=== PATIENT | male | born 1945 | race Caucasian/White ===

== ENCOUNTER → 2017-01-13 | Outpatient (CLI) | payer MEDICARE ==
[2017-01-13 15:14] VITALS: BP 119/87; PULSE 68; TEMP 97.9; BMI 42.2
--- NOTE | 2017-01-13 16:39 | P.HPBAR ---
Bariatric H&P - History & Physicial H&P Date: 01/13/17 History & Physicial: Visit/CC: lap band follow up Patient initial contact: Initial weight: 127.204 kg Initial weight in pounds: 280.44 Height: 5 ft 9 in Initial BMI: 41.4 Last weight: Current weight: 129.773 kg Current weight in pounds: 286.10 Current BMI: 42.2 [place] body weight (based on NIH guidelines): 72.575 kg Excess body weight loss: The patient is a 71 year-old M who presents for Bariatric Assessment. A shunt presents for lap band follow up. He has not been seen over a year. He has had some dysphagia. Past Medical History Past Medical History: Diabetes Mellitus, Hyperlipidemia, Hypertension, Thyroid Disorder History of Any Multi-Drug Resistant Organisms: None Reported, C-DIFF Year Discovered:: 2012 MDRO Source:: SECONDARY TO ABX FROM KNEE SURGERY Past Surgical History: Bariatric Surgery, Orthopedic Surgery Additional Past Surgical History / Comment(s): BILATERAL KNEE REPLACEMENTS, LEFT SHOULDER TIGHTENED LIGAMENTS/ROTATOR CUFF, LAP BAND 2011, FINGER TRAUMA LED TO AMPUTATION Past Anesthesia/Blood Transfusion Reactions: No Reported Reaction Past Psychological History: No Psychological Hx Reported Smoking Status: Former smoker Past Alcohol Use History: Rare Past Drug Use History: None Reported Additional Drug Use History / Comment(s): QUIT SMOKING OVER 50 YEARS AGO - Past Family History Mother Family Medical History: Dementia Additional Family Medical History / Comment(s): ALZHEIMERS, OF NORMAL CAUSES AT AGE 89 Father Family Medical History: Coronary Artery Disease (CAD), Hypertension Additional Family Medical History / Comment(s): AT AGE 87 Surgical - Exam Vital Signs Temp Pulse BP 97.9 F 68 119/87 01/13/17 15:05 01/13/17 15:05 01/13/17 15:05 - General well developed, no distress - Eyes PERRL - ENT normal pinna - Neck no masses - Abdomen Abdomen: soft, non tender Bariatric Assessment & Plan Plan: Dysphagia. The patient's LAP-BAND was adjusted. He had 1 mL removed from her band. He will follow-up in 4 weeks. Bariatric Checklist Checklist: Plan: Checklist: EGD: 1. Hiatal hernia: 2. H. Pylori: HgbA1c: Vitamin D: Smoking: Former smoker Primary care physician referral: Dr. Amy Souza Psychiatry clearance: Cardiology clearance: Sleep study: Diet journal: VTE risk score: VTE risk level: Rehab needs at discharge:
== END ==
LOC: BARWHC3 14:12
PROVIDERS: ATTEND Surgery
DX: Z48.815 Encounter for surgical aftercare following surgery on the digestive system (principal); Z98.84 Bariatric surgery status; R13.10 Dysphagia, unspecified; Z87.891 Personal history of nicotine dependence
CPT/HCPCS: 99212

== ENCOUNTER → 2017-07-07 | Outpatient (CLI) | payer MEDICARE ==
[2017-07-07 14:18] VITALS: BP 176/83; PULSE 66; RESP 16; TEMP 97.6; BMI 44.6
--- NOTE | 2017-07-07 15:44 | P.HPBAR ---
Bariatric H&P - History & Physicial H&P Date: 07/07/17 History & Physicial: Visit/CC: band adj Patient initial contact: Initial weight: 127.204 kg Initial weight in pounds: 280.44 Height: 5 ft 9 in Initial BMI: 41.4 Last weight: 286 Current weight: 137.127 kg Current weight in pounds: 302.31 Current BMI: 44.6 [place] body weight (based on NIH guidelines): 72.575 kg Excess body weight loss: The patient is a 72 year-old M who presents for Bariatric Assessment. Patient presents today for lab band follow. He currently is hungry. Requesting a fill of his band. Past Medical History Past Medical History: Diabetes Mellitus, Hyperlipidemia, Hypertension, Thyroid Disorder History of Any Multi-Drug Resistant Organisms: None Reported, C-DIFF Year Discovered:: 2012 MDRO Source:: SECONDARY TO ABX FROM KNEE SURGERY Past Surgical History: Bariatric Surgery, Orthopedic Surgery Additional Past Surgical History / Comment(s): BILATERAL KNEE REPLACEMENTS, LEFT SHOULDER TIGHTENED LIGAMENTS/ROTATOR CUFF, LAP BAND 2011, FINGER TRAUMA LED TO AMPUTATION Past Anesthesia/Blood Transfusion Reactions: No Reported Reaction Past Psychological History: No Psychological Hx Reported Smoking Status: Former smoker Past Alcohol Use History: Rare Past Drug Use History: None Reported Additional Drug Use History / Comment(s): QUIT SMOKING OVER 50 YEARS AGO - Past Family History Mother Family Medical History: Dementia Additional Family Medical History / Comment(s): ALZHEIMERS, OF NORMAL CAUSES AT AGE 89 Father Family Medical History: Coronary Artery Disease (CAD), Hypertension Additional Family Medical History / Comment(s): AT AGE 87 Surgical - Exam Vital Signs Temp Pulse Resp BP 97.6 F 66 16 176/83 07/07/17 14:16 07/07/17 14:16 07/07/17 14:16 07/07/17 14:16 - General well developed, no distress - Abdomen Abdomen: soft, non tender Bariatric Assessment & Plan Plan: The patient's lap was adjusted. 0.75 mL added to the band. He currently is 3.75 mL in the band. He'll follow-up in in 1 month. Bariatric Checklist Checklist: Plan: Checklist: EGD: 1. Hiatal hernia: 2. H. Pylori: HgbA1c: Vitamin D: Smoking: Former smoker Primary care physician referral: Dr. Amy Souza Psychiatry clearance: Cardiology clearance: Sleep study: Diet journal: VTE risk score: VTE risk level: Rehab needs at discharge:
== END | disposition home or self-care (01) ==
LOC: BARWHC3 13:58
PROVIDERS: ATTEND Surgery
DX: Z46.51 Encounter for fitting and adjustment of gastric lap band (principal); T73.0XXA Starvation, initial encounter; E11.9 Type 2 diabetes mellitus without complications; E78.5 Hyperlipidemia, unspecified; I10 Essential (primary) hypertension; Z96.653 Presence of artificial knee joint, bilateral; Z87.891 Personal history of nicotine dependence; Z98.84 Bariatric surgery status
CPT/HCPCS: 99212

== ENCOUNTER → 2018-11-26 | Outpatient (CLI) | payer MEDICARE ==
[2018-11-26 09:19] LABS: Basophils % (A) 0 %; Eosinophils # (A) 0.5 k/uL (0-0.7); Eosinophils % (A) 9 %; HCT 35.6 % (39.0-53.0); HGB 11.9 gm/dL (13.0-17.5); Lymphocytes # (A) 1.3 k/uL (1.0-4.8); Lymphocytes % (A) 23 %; MCH 31.8 pg (25.0-35.0); MCHC 33.4 g/dL (31.0-37.0); MCV 95.2 fL (80.0-100.0); Mean Platelet Volume 6.6; Monocytes # (A) 0.3 k/uL (0-1.0); Monocytes % (A) 5 %; Neutrophils # (A) 3.4 k/uL (1.3-7.7); Neutrophils % (A) 60 %; Platelet Count 222 k/uL (150-450); RBC 3.74 m/uL (4.30-5.90); RDW 13.3 % (11.5-15.5); WBC 5.7 k/uL (3.8-10.6)
[2018-11-26 09:30] LABS: Potassium 4.6 mmol/L (3.5-5.1)
== END | disposition home or self-care (01) ==
LOC: LABPAT 08:44
PROVIDERS: ATTEND Surgery Plastic and Reconstructive Surgery
DX: Z01.812 Encounter for preprocedural laboratory examination (principal); I74.3 Embolism and thrombosis of arteries of the lower extremities
CPT/HCPCS: 36415; 80051; 82565; 84520; 85025

== ENCOUNTER 2018-12-01 07:26 | Day surgery (SDC) | payer MEDICARE ==
[2018-11-30 11:24] VITALS: BMI 41.0
[~2018-12-01 07:26] MED LIST: ALPRAZolam 0.25 MG TAB PO PRN; ASPIRIN 325 MG TAB PO STA; SODIUM CHLORIDE 0.9% 1,000 ML in EMPTY BAG 1 BAG IV ONE
[2018-12-01] MEDS ORDERED: SODIUM CHLORIDE 0.9% 1,000 ML IV SCH (07:30)
[2018-12-01 08:04] LABS: Glucose,Whole Blood 154 mg/dL (75-99)
[2018-12-01 08:16] VITALS: RESP 16; TEMP 98
[2018-12-01] MEDS: ACETAMINOPHEN TAB 500 MG TAB PO ONE ×2 (08:33→15:54)
[2018-12-01] MEDS ORDERED: methylPREDNISolone SOD SUCCI 125 MG/2 ML VIAL IV ONE (09:42)
[2018-12-01] MEDS ORDERED: diphenhydrAMINE 50 MG/ML 1 ML VIAL IVP ONE (09:43)
[2018-12-01] MEDS ORDERED: SODIUM CHLORIDE 0.9% 250 ML IV ONE (09:45)
[2018-12-01] MEDS ORDERED: MIDAZOLAM (PF) 2 MG/2 ML VIAL IVP ONE (10:48)
[2018-12-01] MEDS: fentaNYL (PF) 50 MCG/ML 2 ML AMP IV ONE ×2 (10:48→11:10)
[2018-12-01] MEDS ORDERED: LIDOCAINE 1% INJ 10MG/ML (20 ML MDV) SQ ONE (10:53)
[2018-12-01] MEDS ORDERED: IOPAMIDOL-250 100ML BTL INTRAARTER ONE (11:07)
--- NOTE | 2018-12-01 11:34 | P.OP ---
Date of Procedure: 12/01/18 Description of Procedure: Preoperative diagnosis: Nonhealing wound left lower extremity, abnormal ABIs bilateral, noncompressible, claudication Postoperative diagnosis: Same Procedure: Abdominal aortogram with runoffs, ultrasound-guided conscious sedation 15 minutes Surgeon: Cari North D.O. Contrast: 84 mL fluoroscopy time 1.22 Complications: [None] Condition: [Stable to recovery] Operative indication and findings: [The patient is a 73-year-old male with a nonhealing left lower extremity wound that has been present for the past 5-6 months. Initially he's been seen in wound care, there was some discussion of whether it was a venous or arterial ulcer, regardless he underwent arterial imaging which revealed an LAKIA on the left of 0.66 with noncompressibility of his femoral vessels. He presents today for diagnostic imaging. Wrist and benefits were discussed including but not limited to bleeding, infection and injury to the vessels. He seemingly understand and was willing to proceed. Imaging revealed a patent aorta without any evidence of disease. There is patent renal arteries bilaterally with an accessory renal on the right. On the right, the common, external, and internal iliac artery without evidence of disease. The common femoral is patent with minimal disease. The superficial femoral artery and profunda are patent without evidence of significant disease. At the level of the abductor canal there is abrupt occlusion of the popliteal artery. There are multiple collaterals. There is three-vessel runoff below the knee although the intertibial is quite diminutive beyond its takeoff. 2 vessels are at the ankle. On the left the common, external, and internal iliac arteries are patent without evidence of disease. The common femoral and profunda are patent without evidence of disease. Superficial femoral artery has a very high-grade near occlusive stenosis at the takeoff with immediate reconstitution. At the level of the abductor canal there is abrupt cessation of flow with reconstitution at the popliteal artery behind the knee. There are 3 vessels below the knee. Flow was brisk to the foot and not visualized in the final picture. There are multiple prosthetics making visualization somewhat limited ] Procedure in detail: [The patient was taken to the special suite and placed in supine position. Bilateral groins were prepped and draped in usual sterile fashion. A preprocedure timeout was performed. All parties are in agreement. After IV sedation was adequate, the right common femoral artery was identified with ultrasound. The skin overlying was anesthetized with 2% lidocaine plain. A micropuncture was utilized to access the common femoral artery Seldinger technique was utilized to place a 5-[place] sheath. Guidewire was placed into the aorta followed by a pigtail catheter. An aortogram was performed. The catheter was brought down the level of bifurcation and bilateral lower extremity runoffs were performed. The findings are as above. The patient was transferred to the recovery area in stable condition having tolerated the proced ure well where his sheath will be pulled.] Plan - Discharge Summary Discharge Rx Participant: Yes New Discharge Prescriptions: No Action metFORMIN HCL [Glucophage] 500 mg PO DAILY Lisinopril-Hctz 20-25 mg [Zestoretic 20-25] 1 tab PO DAILY Levothyroxine Sodium [Synthroid] 25 mcg PO DAILY Insulin NPH/Reg Insulin 70/30 [humuLIN 70/30 VIAL] 50 unit SQ QAM Atenolol 25 mg PO DAILY Felodipine [Felodipine ER] 5 mg PO QAM Insulin NPH Hum/Reg Insulin Hm [Novolin 70-30 100 Unit/ml Vial] 10 - 30 unit SQ W/SUPPER PRN PRN Reason: Blood Sugar - High Metoprolol Succinate [Toprol XL] 25 mg PO DAILY Pravastatin Sodium [Pravachol] 40 mg PO DAILY Ciprofloxacin HCl [Cipro] 500 mg PO BID Aspirin EC [Ecotrin] 325 mg PO HS Acetaminophen [Tylenol Extra Strength] 1,000 mg PO Q8HR PRN PRN Reason: Mild To Moderate Pain Discharge Medication List Atenolol 25 mg PO DAILY 10/23/15 [History] Insulin NPH/Reg Insulin 70/30 [humuLIN 70/30 VIAL] 50 unit SQ QAM 10/23/15 [History] Levothyroxine Sodium [Synthroid] 25 mcg PO DAILY 10/23/15 [History] Lisinopril-Hctz 20-25 mg [Zestoretic 20-25] 1 tab PO DAILY 10/23/15 [History] metFORMIN HCL [Glucophage] 500 mg PO DAILY 10/23/15 [History] Aspirin EC [Ecotrin] 325 mg PO HS 11/30/18 [History] Ciprofloxacin HCl [Cipro] 500 mg PO BID 11/30/18 [History] Felodipine [Felodipine ER] 5 mg PO QAM 11/30/18 [History] Insulin NPH Hum/Reg Insulin Hm [Novolin 70-30 100 Unit/ml Vial] 10 - 30 unit SQ W/SUPPER PRN 11/30/18 [History] Metoprolol Succinate [Toprol XL] 25 mg PO DAILY 11/30/18 [History] Pravastatin Sodium [Pravachol] 40 mg PO DAILY 11/30/18 [History] Acetaminophen [Tylenol Extra Strength] 1,000 mg PO Q8HR PRN 12/01/18 [History]
--- NOTE | 2018-12-01 12:14 | IR ---
EXAMINATION TYPE: IR angio abdominal w runoff DATE OF EXAM: 12/01/2018 COMPARISON: NONE HISTORY: Fluoroscopy time. Fluoroscopy was provided to the referring clinician. 1.2 minutes of fluoroscopy provided.
[2018-12-01 16:09] VITALS: PULSE 59
[2018-12-01 17:36] VITALS: BP 145/72
== END 2018-12-01 17:10 | disposition home or self-care (01) ==
LOC: CATHCVL 07:26
PROVIDERS: ATTEND Surgery
DX: I70.249 Atherosclerosis of native arteries of left leg with ulceration of unspecified site (principal); L97.929 Non-pressure chronic ulcer of unspecified part of left lower leg with unspecified severity; I70.211 Atherosclerosis of native arteries of extremities with intermittent claudication, right leg; Z88.6 Allergy status to analgesic agent; Z79.890 Hormone replacement therapy; Z79.899 Other long term (current) drug therapy; Z79.4 Long term (current) use of insulin; Z79.82 Long term (current) use of aspirin; Z82.49 Family history of ischemic heart disease and other diseases of the circulatory system; Z98.890 Other specified postprocedural states; Z98.84 Bariatric surgery status
CPT/HCPCS: 36200; 75625; 75716; 76937; C1769 ×4; C1894; J2001; J3010; Q9966; J2250

== ENCOUNTER 2018-12-22 06:02 | Inpatient (IN) | payer MEDICARE ==
[~2018-12-22 06:02] MED LIST changes: -ALPRAZolam 0.25 MG TAB PO PRN; -ASPIRIN 325 MG TAB PO STA
[2018-12-22 06:24] LABS: Glucose,Whole Blood 134 mg/dL (75-99)
[2018-12-22 06:41] LABS: Calcium 9.6 mg/dL (8.4-10.2); Potassium 4.6 mmol/L (3.5-5.1)
[2018-12-22] MEDS ORDERED: ROCURONIUM BROMIDE 10 MG/ML 10 ML VIAL IV ONE (07:24)
[2018-12-22] MEDS ORDERED: PROPOFOL 10 MG/ML 20 ML VIAL IV ONE (07:24)
[2018-12-22] MEDS ORDERED: LIDOCAINE 1% INJ 10MG/ML (20 ML MDV) ONE (07:24)
[2018-12-22] MEDS ORDERED: SUCCINYLCHOLINE CHLORIDE 100 MG/5 ML SYR IV ONE (07:24)
[2018-12-22] MEDS ORDERED: fentaNYL (PF) 50 MCG/ML 2 ML AMP ONE (07:24)
[2018-12-22] MEDS ORDERED: PHENYLEPHRINE-0.9% NACL SYG 1 MG/10 ML SYRINGE ONE (07:24)
[2018-12-22] MEDS ORDERED: ePHEDrine SULFATE/0.9% NACL/PF 50 MG/5 ML SYRINGE IV ONE (07:24)
[2018-12-22] MEDS ORDERED: GLYCOPYRROLATE 0.2 MG/ML 2 ML VIAL ONE (07:24)
[2018-12-22] MEDS ORDERED: NEOSTIGMINE 1 MG/ML 10 ML VIAL ONE (07:24)
[2018-12-22] MEDS ORDERED: HEPARIN SODIUM,PORCINE 10,000 UNIT/ML 1 ML VIAL ONE (07:24)
[2018-12-22] MEDS ORDERED: MIDAZOLAM 2 MG/2 ML VIAL ONE (07:24)
[2018-12-22] MEDS ORDERED: LIDOCAINE 1% INJ 10MG/ML (20 ML MDV) SQ ONE (07:55)
[2018-12-22] MEDS ORDERED: LACTATED RINGERS 1,000 ML IV ONE (09:14)
[2018-12-22] MEDS ORDERED: IOPAMIDOL-250 100ML BTL INTRAARTER ONE ×4 (10:17→10:18)
--- NOTE | 2018-12-22 10:55 | IR ---
EXAMINATION TYPE: IR bell captain femoral popliteal DATE OF EXAM: 12/22/2018 COMPARISON: NONE HISTORY: Fluoroscopy time. Fluoroscopy was provided to the referring clinician.
[2018-12-22 11:12] LABS: Glucose,Whole Blood 162 mg/dL (75-99)
[2018-12-22] MEDS ORDERED: NITROGLYCERIN OINT 1 INCH/GM PACKET TOPICAL ONE (11:55)
[2018-12-22] MEDS ORDERED: SODIUM CHLORIDE 0.9% 1,000 ML IV ONE ×2 (12:00)
--- NOTE | 2018-12-22 12:01 | P.OP ---
Date of Procedure: 12/22/18 Description of Procedure: Preoperative diagnosis: Chris 5 left lower extremity peripheral arterial disease, femoral-popliteal occlusive disease, diabetes Postoperative diagnosis: Same Procedure: Ultrasound-guided right common femoral artery access Left lower extremity atherectomy of the superficial femoral artery and popliteal artery with a Hawk One M, percutaneous transluminal balloon angioplasty with 5 x 1 20 chocolate balloon Placement of EV3 everflex 6 x 120 stent Deployment of device, 6 Angio-Seal Surgeon: Cari North D.O. EBL: 50 mL Asst.: Aydin Cortez D.O. IV fluids: See anesthesia reports Urine output: Not measured Fluoroscopy time 42.9 minutes Contrast 100 mL of Isovue 250 Complications: [None immediately apparent] Condition: Stable to PACU Operative indication and findings: The patient is a 73-year-old male with a history of wounds on his right lower extremity and abnormal ABIs with a left side measuring 0.6. Preoperative diagnostic angiogram was performed revealing high-grade stenosis at the left superficial femoral artery along with a chronic total occlusion of the distal superficial femoral artery/popliteal artery at the abductor canal. Angiogram revealed similar findings, catheters and wires were utilized to cross the lesion. At the conclusion of the procedure there was drastic improvement at the superficial femoral artery and no residual stenosis of the popliteal artery after stent placement. There was robust two-vessel runoff to the ankle via the posterior tibial and peroneal. The anterior tibial artery becomes quite diminutive after its takeoff Procedure in detail: The patient was taken to the radiology suite and placed in supine position. Bilateral groins are prepped and draped in usual sterile fashion. After anesthesia was adequate, an ultrasound was utilized in the right common femoral artery was identified. It was accessed with a micropuncture needle. Seldinger technique was utilized and a 6-[place] sheath was placed. Up & Over catheter was utilized and an angiogram was performed of the left lower extremity. A glide advantage was utilized to cross the initial lesion at the ostium of the superficial femoral artery. The 6-[place] short sheath was removed and replaced with a 6-[place], 55 cm [place]. That point the guidewire was advanced to the level of the total occlusion. Utilizing multiple wires and catheters including a command wire, astato and different size quick cross catheters, the lesion was eventually crossed. At that point and 035 crossing catheter was placed into the popliteal artery and a 5 spider was placed. A 6M Hawk one was utilized and daughtered across the lesion. Multiple passes were made. Followi ng this a 5 x 1 20 chocolate balloon was insufflated and left for 2 minutes. There was still significant disease of the vessel following and therefore a 6 x 1 20 ever Flex stent was placed. It was postdilated with a 5 x 1 20 balloon. Attention was then turned towards the proximal lesion, multiple passes of the atherectomy device were performed. There some debulking of the plaque itself although not significant. At that point the spider protection device was removed via the crossing catheter. Then a Glidewire was placed back and a drug- coated balloon 7 x 40 was utilized at the proximal superficial femoral artery. Final imaging revealed significant improvement of the area of stenosis of the superficial femoral artery with brisk flow through the entirety of the affected areas and stent. There was adequate, and robust two-vessel runoff via the posterior tibial and peroneal arteries. The anterior tibial artery was diminutive beyond its takeoff as previous. The sheath was pulled back from across the bifurcation over the wire, a sheath shot was performed revealing adequate positioning in the common femoral artery. A 6-[place] Angio-Seal was utilized as closure device over the wire. Pressure was held until hemostasis was appropriate. The patient was extubated and transferred to PACU in stable condition. He had a strong posterior tibial signal on the left with a weak dorsalis pedis signal.
[2018-12-22] MEDS ORDERED: METOPROLOL TARTRATE 25 MG TAB PO STA (12:17)
--- NOTE | 2018-12-22 12:22 | XR ---
EXAMINATION TYPE: XR chest 1V portable DATE OF EXAM: 12/22/2018 COMPARISON: NONE HISTORY: Difficulty breathing TECHNIQUE: Single frontal view of the chest is obtained. FINDINGS: There is no focal air space opacity, pleural effusion, or pneumothorax seen. The poonam are prominent in size which could relate to pulmonary hypertension. The cardiac silhouette size is within normal limits. The osseous structures are intact. IMPRESSION: Prominent poonam, which could relate to pulmonary arterial hypertension. No other acute ca rdiac pulmonary process is seen.
[2018-12-22 12:31] LABS: Partial Thromboplastin Time 39.9 sec (22.0-30.0); Prothrombin Time 10.6 sec (9.0-12.0)
--- NOTE | 2018-12-22 12:31 | P.PN ---
Progress Note - Text Called to evaluate patient PACU. New-onset arrhythmia, afibrillation on EKG. Some shortness of breath. Stat cardiology consult, okay for heparin drip with no bolus at 1 PM. Monitor groins closely. Will admit to the hospital, will notify Dr. Souza
[2018-12-22 12:38] LABS: Basophils % (A) 0 %; Eosinophils # (A) 0.3 k/uL (0-0.7); Eosinophils % (A) 4 %; HCT 35.4 % (39.0-53.0); HGB 11.7 gm/dL (13.0-17.5); Lymphocytes % (A) 15 %; MCH 32.8 pg (25.0-35.0); MCHC 33.2 g/dL (31.0-37.0); Mean Platelet Volume 5.8; Monocytes # (A) 0.2 k/uL (0-1.0); Monocytes % (A) 3 %; Neutrophils % (A) 75 %; Platelet Count 211 k/uL (150-450); RBC 3.57 m/uL (4.30-5.90); RDW 13.2 % (11.5-15.5); WBC 6.8 k/uL (3.8-10.6)
[2018-12-22] MEDS ORDERED: AMIODARONE 360 MG in DEXTROSE 5% IN WATER 200 ML IV ONE ×2 (12:40)
[2018-12-22 12:41] LABS: Albumin 3.6 g/dL (3.5-5.0); Calcium 8.9 mg/dL (8.4-10.2); Potassium 4.5 mmol/L (3.5-5.1); Total Bilirubin 0.7 mg/dL (0.2-1.3); Total Protein 6.8 g/dL (6.3-8.2)
[2018-12-22] MEDS: DEXTROSE 5% IN WATER 100 ML with AMIODARONE 150 MG IV ONE ×2 (12:42→12:52)
--- NOTE | 2018-12-22 12:53 | P.CRDCN ---
History of Present Illness History of present illness: This is a pleasant 73-year-old male past medical history significant for diabetes mellitus, hypertension, dyslipidemia, peripheral vascular disease, obstructive sleep apnea and morbid obesity. He follows in the office with Dr. Connelly. We have been asked to see him in recovery secondary to new onset atrial fibrillation. He went in today for an elective left lower extremity atherectomy of the superficial femoral and popiteal artery with balloon angioplasty with Dr. North. Angio-seal was used on the right groin access site. Once in recovery the nurse noted on the monitor his rhythm was irregular and he was quite short of breath. EKG obtained revealed atrial fibrillation with 1.[address] depression noted anteriorly. Preop EKG revealed sinus mechanism with first- degree AV block. On exam he is laying flat due to recent procedure and is complaining of bilateral hand numbess and tingling with shortness of breath. He denies chest pain, dizziness, palpitations, nausea or vomiting. He is maintaining oxygen saturation on nasal cannula. Heart rate is fluctuating between low 100's and 125. Blood pressure 106/74. Chest x-ray requested is negative for an acute cardiopulmonary process. Per the patient he took his home meds this morning prior to coming in. There is some discrepancy of his beta blockers on the home list. Prior to this procedure he saw Dr. Connelly in the office in September 2018 and underwent pre-op evaluation to include a Lexiscan stress test and echocardiogram. Stress test was negative for reversible cardiac ischemia with a fixed defect inferiorly secondary to soft tissue attenuation. Echo revealed normal LV size and function with EF 55%, mild with mean 14 mmHg. At the time of my exam: CONSTITUTIONAL: Denies fever. Denies chills. EYES: Denies blurred vision. Denies vision changes. Denies eye pain. EARS, NOSE, MOUTH & THROAT: Denies headache. Denies sore throat. Denies ear pain. CARDIOVASCULAR: Denies chest pain. Complains of shortness of breath. Denies orthopnea. Denies PND. Denies palpitations. RESPIRATORY: Denies cough. GASTROINTESTINAL: Denies abdominal pain. Denies diarrhea. Denies constipation. Denies nausea. Denies vomiting. MUSCULOSKELETAL: Denies myalgias. INTEGUMENTARY: Denies pruitis. Denies rash. NEUROLOGIC: Complains of bilateral hand numbness and tingling. Denies weakness. PSYCHIATRIC: Denies anxiety. Denies depression. ENDOCRINE: Denies fatigue. Denies weight change. Denies polydipsia. Denies polyurina. GENITOURINARY: Denies burning, hematuria or urgency with micturation. HEMATOLOGIC: Denies history of anemia. Denies bleeding. Blood pressure 100/61 heart rate 102 afebrile maintaining oxygen saturation on nasal cannula GENERAL: This is a 73-year-old male in no apparent distress at the time of my examination. HEENT: Head is atraumatic, normocephalic. Pupils are equal, round. Sclerae anicteric. Conjunctivae are clear. Mucous membranes of the mouth are moist. Neck is supple. There is no jugular venous distention. No carotid bruit is heard. LUNGS: Clear to auscultation no wheezes, rales or rhonchi. No chest wall tenderness is noted on palpation or with deep breathing. HEART: Irregular rate and rhythm with systolic ejection murmur at the base, no rubs or gallops. S1 and S2 heard. ABDOMEN: Soft, nontender. Bowel sounds are heard. No organomegaly noted. EXTREMITIES: No evidence of peripheral edema and no calf tenderness noted. VASCULAR: Radial and dorsalis pedis pulses with doppler at bedside, no evidence of clubbing. NEUROLOGIC: Patient is awake, alert and oriented x3. ASSESSMENT New onset atrial fibrillation with variable ventricular rates ST changes on EKG, could be likely to afib, however will check troponin and echo. s/p left fem-pop atherectomy and balloon angioplasty Hypertension Diabetes mellitus Dyslipidemia Peripheral vascular disease PLAN Obtain 2D echocardiogram and doppler study to assess cardiac structure and function. Check BMP, CBC, proBNP, troponin, TSH and magnesium. Initiate on amiodarone infusion. Obtain EKG if he converts back to sinus. Discussed with Dr. North and heparin infusion ok to start after 1300 with a watchful eye on the right groin access site. If echo and troponin normal would recommend starting xarelto 15 mg daily prior to discharge along with plavix and aspirin for 6 weeks, then will increase the xarelto to 20 and discontinue the aspirin. Further recommendations to follow based on clinical course. Thank you kindly for this consultation. Nurse Practitioner note has been reviewed, I agree with a documented findings and plan of care. Patient was seen and examined. Past Medical History Past Medical History: Diabetes Mellitus, Hyperlipidemia, Hypertension, Osteoarthritis (OA), Sleep Apnea/CPAP/BIPAP, Thyroid Disorder Additional Past Medical History / Comment(s): varicose veins, poor circulation in maren legs, occ edema of maren ankles, c-diff 2012, has open sore on left ankle(on antibiotics) History of Any Multi-Drug Resistant Organisms: None Reported, C-DIFF Date of last positivie culture/infection: 2012 MDRO Source:: SECONDARY TO ABX FROM KNEE SURGERY Past Surgical History: Bariatric Surgery, Heart Catheterization, Orthopedic Surgery Additional Past Surgical History / Comment(s): BILATERAL KNEE REPLACEMENTS, LEFT SHOULDER TIGHTENED LIGAMENTS/ROTATOR CUFF, LAP BAND 2011, FINGER TRAUMA LED TO AMPUTATION of left index finger, left hip replacement, maren cataracts Past Anesthesia/Blood Transfusion Reactions: No Reported Reaction Smoking Status: Former smoker - Past Family History Mother Family Medical History: Dementia Additional Family Medical History / Comment(s): ALZHEIMERS, OF NORMAL CAUSES AT AGE 89 Father Family Medical History: Coronary Artery Disease (CAD), Hypertension Additional Family Medical History / Comment(s): AT AGE 87 Sister(s) Family Medical History: Cancer Medications and Allergies Home Medications Medication Instructions Recorded Confirmed Type Atenolol 25 mg PO DAILY 10/23/15 12/22/18 History Insulin NPH/Reg Insulin 70/30 50 unit SQ QAM 10/23/15 12/22/18 History [humuLIN 70/30 VIAL] Levothyroxine Sodium [Synthroid] 25 mcg PO DAILY 10/23/15 12/22/18 History Lisinopril-Hctz 20-25 mg 1 tab PO DAILY 10/23/15 12/22/18 History [Zestoretic 20-25] metFORMIN HCL [Glucophage] 500 mg PO DAILY 10/23/15 12/21/18 History Aspirin EC [Ecotrin] 325 mg PO HS 11/30/18 12/22/18 History Felodipine [Felodipine ER] 5 mg PO QAM 11/30/18 12/22/18 History Insulin NPH Hum/Reg Insulin Hm 10 - 30 unit SQ W/SUPPER PRN 11/30/18 12/22/18 History [Novolin 70-30 100 Unit/ml Vial] Metoprolol Succinate [Toprol XL] 25 mg PO DAILY 11/30/18 12/22/18 History Pravastatin Sodium [Pravachol] 40 mg PO DAILY 11/30/18 12/22/18 History Acetaminophen [Tylenol Extra 1,000 mg PO Q8HR PRN 12/01/18 12/21/18 History Strength] Gabapentin 600 mg PO HS 12/21/18 12/22/18 History Gabapentin [Neurontin] 300 mg PO QAM 12/21/18 12/22/18 History Ibuprofen [Motrin] 400 mg PO Q8HR PRN 12/21/18 12/22/18 History Allergies Allergy/AdvReac Type Severity Reaction Status Date / Time naproxen [From Naprosyn] Allergy Rash/Hives Verified 12/21/18 09:39 Physical Exam Vitals: Vital Signs Temp Pulse Resp BP BP Pulse Ox 12/22/18 11:27 96 18 121/55 99 12/22/18 11:13 111 H 18 106/57 96 12/22/18 10:57 96 16 101/58 96 12/22/18 10:42 97.0 F L 106 H 18 109/54 95 12/22/18 06:34 98.2 F 62 18 149/68 95 Intake and Output 12/21/18 12/22/18 12/22/18 22:59 06:59 14:59 Intake Total 125 500 Balance 125 500 Intake: IV 125 500 Results 12/22/18 06:15 Comprehensive Metabolic Panel 12/22/18 Range/Units 06:15 Sodium 141 (137-145) mmol/L Potassium 4.6 (3.5-5.1) mmol/L Chloride 108 H (98-107) mmol/L Carbon Dioxide 23 (22-30) mmol/L BUN 39 H (9-20) mg/dL Creatinine 1.61 H (0.66-1.25) mg/dL Glucose 137 H (74-99) mg/dL Calcium 9.6 (8.4-10.2) mg/dL Current Medications Generic Name Dose Route Start Last Admin Trade Name Freq PRN Reason Stop Dose Admin Aspirin 81 mg 12/23/18 09:00 Aspirin PO DAILY LEAH Clopidogrel Bisulfate 75 mg 12/22/18 11:30 Plavix PO DAILY LEAH Sodium Chloride 1,000 ml/ IV 1,000 mls @ 100 mls/hr 12/22/18 06:00 12/22/18 06:20 Solution IV 12/22/18 15:59 625 mls .Q10H ONE Administration Nitroglycerin 0.5 inch 12/22/18 12:15 Nitro-Bid Oint TOPICAL Q6HR LEAH Intake and Output 12/21/18 12/22/18 12/22/18 22:59 06:59 14:59 Intake Total 125 500 Balance 125 500 Intake: IV 125 500 12/22/18 06:15
[2018-12-22] MEDS ORDERED: HEPARIN SODIUM,PORCINE 5,000 UNIT/ML 1 ML VIAL IV PRN (13:14)
[2018-12-22] MEDS ORDERED: ACETAMINOPHEN TAB 500 MG TAB PO PRN (13:34)
[2018-12-22] MEDS ORDERED: INSULN ASP PRT/INSULIN ASPART 100 UNIT/ML 10 ML VIAL SQ PRN (13:34)
[2018-12-22] MEDS: NITROGLYCERIN OINT 1 INCH/GM PACKET TOPICAL SCH ×3 (14:09→21:50)
[2018-12-22] MEDS: CLOPIDOGREL 75 MG TAB PO SCH (15:07)
[2018-12-22 15:16] LABS: T4, Free (Free Thyroxine) 1.42 ng/dL (0.78-2.19)
[2018-12-22] MEDS: HEPARIN SOD,PORK IN 0.45% NACL 25,000 UNIT in 0.45% NACL 1 250ML.BAG IV SCH (15:47)
[2018-12-22 17:06] LABS: Glucose,Whole Blood 188 mg/dL (75-99)
[2018-12-22] MEDS: INSULIN ASPART (NovoLOG) 100 UNIT/ML VIAL SQ SCH ×2 (18:01→21:48)
--- NOTE | 2018-12-22 18:57 | ECHOF ---
Referral Reason:r/o CT MEASUREMENTS -------- HEIGHT: 0.0 cm WEIGHT: 0.0 kg BP: IVSd: 1.7 cm (0.6 - 1.1) LVIDd: 3.4 cm (3.9 - 5.3) LVPWd: 1.5 cm (0.6 - 1.1) IVSs: 2.0 cm LVIDs: 2.7 cm LVPWs: 1.9 cm FINDINGS -------- Atrial fibrillation with RVR. This was a technically difficult study with suboptimal views. Lumason used. Limited Study Overall left ventricular systolic function is normal with, an EF between 55 - 60 %. Maher not well visulized due to Morbid Obesity. CONCLUSIONS -------- 1. Atrial fibrillation with RVR. 2. This was a technically difficult study with suboptimal views. Lumason used. 3. Limited Study 4. Maher not well visulized due to Morbid Obesity. PRACTICE OFFICE ASSOCIATE: Roula Azevedo [facility]
[2018-12-22] MEDS: AMIODARONE 300 MG in DEXTROSE 5% IN WATER 250 ML IV SCH ×2 (19:20)
[2018-12-22] MEDS: GABAPENTIN 300 MG CAP PO SCH (20:07)
[2018-12-22] MEDS: traMADol 50 MG TAB PO PRN (20:07)
[2018-12-22] MEDS: METOPROLOL TARTRATE 25 MG TAB PO SCH (20:07)
[2018-12-22 20:54] LABS: Glucose,Whole Blood 239 mg/dL (75-99)
[2018-12-23] MEDS ORDERED: LEVOTHYROXINE 25 MCG TAB ONE (06:00)
[2018-12-23] MEDS ORDERED: NITROGLYCERIN OINT 1 INCH/GM PACKET TOPICAL ONE (06:00)
[2018-12-23 07:18] LABS: Glucose,Whole Blood 227 mg/dL (75-99)
[2018-12-23] MEDS: AMIODARONE 300 MG in DEXTROSE 5% IN WATER 250 ML IV SCH ×2 (07:42)
[2018-12-23] MEDS: LEVOTHYROXINE 25 MCG TAB PO SCH (07:43)
[2018-12-23] MEDS: NITROGLYCERIN OINT 1 INCH/GM PACKET TOPICAL SCH ×2 (07:43→11:34)
[2018-12-23 07:51] LABS: Basophils % (A) 0 %; Eosinophils # (A) 0.3 k/uL (0-0.7); Eosinophils % (A) 4 %; HCT 33.4 % (39.0-53.0); Lymphocytes # (A) 0.9 k/uL (1.0-4.8); Lymphocytes % (A) 16 %; MCH 33.5 pg (25.0-35.0); MCHC 32.9 g/dL (31.0-37.0); MCV 101.7 fL (80.0-100.0); Macrocytosis Slight; Mean Platelet Volume 7.3; Monocytes # (A) 0.4 k/uL (0-1.0); Monocytes % (A) 6 %; Neutrophils # (A) 4.2 k/uL (1.3-7.7); Neutrophils % (A) 72 %; Platelet Count 201 k/uL (150-450); RBC 3.29 m/uL (4.30-5.90); RDW 13.6 % (11.5-15.5); WBC 5.9 k/uL (3.8-10.6)
[2018-12-23] MEDS ORDERED: ALPRAZolam 0.25 MG TAB PO PRN (08:42)
[2018-12-23] MEDS ORDERED: ASPIRIN 325 MG TAB PO STA (08:42)
[2018-12-23] MEDS ORDERED: ALPRAZolam 0.5 MG TAB PO PRN (08:42)
[2018-12-23] MEDS ORDERED: NITROGLYCERIN SL TABS 0.4 MG TAB SUBLINGUAL PRN (08:42)
[2018-12-23] MEDS ORDERED: ATORVASTATIN 80 MG TAB PO STA (08:42)
[2018-12-23] MEDS ORDERED: SODIUM CHLORIDE 0.9% 1,000 ML in EMPTY BAG 1 BAG IV ONE (08:42)
[2018-12-23] MEDS: INSULIN ASPART (NovoLOG) 100 UNIT/ML VIAL SQ SCH ×5 (08:55→20:45)
[2018-12-23] MEDS: GABAPENTIN 300 MG CAP PO SCH ×2 (08:56→21:09)
[2018-12-23] MEDS: PRAVASTATIN SODIUM 40 MG TAB PO SCH (08:56)
[2018-12-23] MEDS: LISINOPRIL-HCTZ 20-25 MG 1 EACH TAB PO SCH (08:56)
[2018-12-23] MEDS: CLOPIDOGREL 75 MG TAB PO SCH (08:56)
[2018-12-23] MEDS: METOPROLOL TARTRATE 25 MG TAB PO SCH ×2 (08:56→21:09)
[2018-12-23] MEDS: amLODIPine 5 MG TAB PO SCH (08:56)
[2018-12-23] MEDS ORDERED: INSULN ASP PRT/INSULIN ASPART 100 UNIT/ML 10 ML VIAL SQ SCH ×2 (09:00→17:30)
[2018-12-23] MEDS ORDERED: ASPIRIN 81 MG PO SCH (09:00)
--- NOTE | 2018-12-23 11:05 | P.PN ---
Subjective This is a pleasant 73-year-old male past medical history significant for diabetes mellitus, hypertension, dyslipidemia, peripheral vascular disease, obstructive sleep apnea and morbid obesity. He follows in the office with Dr. Connelly. We have been asked to see him in recovery secondary to new onset atrial fibrillation. He went in today for an elective left lower extremity atherectomy of the superficial femoral and popiteal artery with balloon angioplasty with Dr. North. Angio-seal was used on the right groin access site. Once in recovery the nurse noted on the monitor his rhythm was irregular and he was quite short of breath. EKG obtained revealed atrial fibrillation with 1.[address] depression noted anteriorly. Preop EKG revealed sinus mechanism with first- degree AV block. On exam he is laying flat due to recent procedure and is complaining of bilateral hand numbess and tingling with shortness of breath. He denies chest pain, dizziness, palpitations, nausea or vomiting. He is maintaining oxygen saturation on nasal cannula. Heart rate is fluctuating between low 100's and 125. Blood pressure 106/74. Chest x-ray requested is negative for an acute cardiopulmonary process. Per the patient he took his home meds this morning prior to coming in. There is some discrepancy of his beta blockers on the home list. Prior to this procedure he saw Dr. Connelly in the office in September 2018 and underwent pre-op evaluation to include a Lexiscan stress test and echocardiogram. Stress test was negative for reversible cardiac ischemia with a fixed defect inferiorly secondary to soft tissue attenuation. Echo revealed normal LV size and function with EF 55%, mild with mean 14 mmHg. 12/23/2018 Pt is seen and examined sitting up in the chair in no acute distress. Overall he states he feels good with no specific complaints. He denies any further shortness of breath, no chest pain, dizziness or palpitations. He converted to sinus mechanism yesterday afternoon and has been maintaining that rhythm through the night. Repeat EKG's reviewed. ST changes have improved while in sinus. Unfortunately he has had a troponin leak. Initially 0.025, 0.631 and 1.72. Other laboratory data reviewed, WBC 6.8, hgb 11.7, plt 211, sodium 142, potassium 4.5, creatinine 1.7, magnesium 1.9, proBNP 650 and TSH 5.04. Currently maintained on amiodarone infusion, heparin infusion, amlodipine 5 mg daily, aspirin 81 mg daily, plavix 75 mg daily, zestoretic 20/25 mg daily, lopressor 25 mg BID, pravastatin 40 mg daily and nitropaste. GENERAL: This is a 73-year-old male in no apparent distress at the time of my examination. HEENT: Head is atraumatic, normocephalic. Pupils are equal, round. Sclerae anicteric. Conjunctivae are clear. Mucous membranes of the mouth are moist. Neck is supple. There is no jugular venous distention. No carotid bruit is heard. LUNGS: Clear to auscultation no wheezes, rales or rhonchi. No chest wall tenderness is noted on palpation or with deep breathing. HEART: Irregular rate and rhythm with systolic ejection murmur at the base, no rubs or gallops. S1 and S2 heard. EXTREMITIES: No evidence of peripheral edema and no calf tenderness noted. Skin tear noted to anterior tibial region of the left lower extremity. ASSESSMENT New onset paroxysmal atrial fibrillation with variable ventricular rates. Converted to sinus mechanism. NSTEMI ST changes on EKG, could be likely to afib, however will check troponin and echo. s/p left fem-pop atherectomy and balloon angioplasty Hypertension Diabetes mellitus Dyslipidemia Peripheral vascular disease PLAN Recommend proceeding with cardiac catheterization for definitive diagnosis of underlying CAD. I have discussed the risks, benefits and alternative therapies for the above-mentioned procedure and for both sedation/analgesia as well as necessary blood product administration, if indicated, as they pertain to this patient. The risk of kidney damage has been explained. The patient has indicated understanding and acceptance of the risks and procedures discussed. Questions have been answered appropriately and he is agreeable to move forward with the above stated procedure. Continue amiodarone infusion for now, decision will be made regarding this after his heart catheterization. Further recommendations to follow based on clinical course. Nurse Practitioner note has been reviewed, I agree with a documented findings and plan of care. Patient was seen and examined. Objective - Vital Signs Vital signs: Vital Signs Temp 98.1 F 12/23/18 08:00 Pulse 76 12/23/18 08:00 Resp 18 12/23/18 08:00 BP 131/62 12/23/18 08:00 Pulse Ox 95 12/23/18 08:00 Intake & Output 12/22/18 12/23/1812/23/19 18:59 06:59 18:59 Intake Total 1143 368 Output Total 200 Balance 1143 168 Weight 137.3 kg Intake: IV 903 Oral 240 368 Output: Urine 200 Other: # Voids 1 1 - Labs CBC & Chem 7: 12/23/18 05:20 12/22/18 12:07 Labs: Abnormal Lab Results - Last 24 Hours (Table) 12/22/18 12/22/18 12/22/18 Range/Units 11:10 12:07 12:07 RBC 3.57 L (4.30-5.90) m/uL Hgb 11.7 L (13.0-17.5) gm/dL Hct 35.4 L (39.0-53.0) % MCV (80.0-100.0) fL Lymphocytes # (1.0-4.8) k/uL APTT (22.0-30.0) sec Chloride 110 H (98-107) mmol/L Carbon Dioxide 21 L (22-30) mmol/L BUN 39 H (9-20) mg/dL Creatinine 1.70 H (0.66-1.25) mg/dL Glucose 176 H (74-99) mg/dL POC Glucose (mg/dL) 162 H (75-99) mg/dL Troponin I (0.000-0.034) ng/mL TSH 5.040 H (0.465-4.680) mIU/L 12/22/18 12/22/18 12/22/18 Range/Units 12:13 16:46 18:44 RBC (4.30-5.90) m/uL Hgb (13.0-17.5) gm/dL Hct (39.0-53.0) % MCV (80.0-100.0) fL Lymphocytes # (1.0-4.8) k/uL APTT 39.9 H (22.0-30.0) sec Chloride (98-107) mmol/L Carbon Dioxide (22-30) mmol/L BUN (9-20) mg/dL Creatinine (0.66-1.25) mg/dL Glucose (74-99) mg/dL POC Glucose (mg/dL) 188 H (75-99) mg/dL Troponin I 0.631 H* (0.000-0.034) ng/mL TSH (0.465-4.680) mIU/L 12/22/18 12/23/18 12/23/18 Range/Units 20:53 05:20 06:04 RBC 3.29 L (4.30-5.90) m/uL Hgb 11.0 L (13.0-17.5) gm/dL Hct 33.4 L (39.0-53.0) % MCV 101.7 H (80.0-100.0) fL Lymphocytes # 0.9 L (1.0-4.8) k/uL APTT (22.0-30.0) sec Chloride (98-107) mmol/L Carbon Dioxide (22-30) mmol/L BUN (9-20) mg/dL Creatinine (0.66-1.25) mg/dL Glucose (74-99) mg/dL POC Glucose (mg/dL) 239 H 227 H (75-99) mg/dL Troponin I (0.000-0.034) ng/mL TSH (0.465-4.680) mIU/L
[2018-12-23 11:27] LABS: Glucose,Whole Blood 284 mg/dL (75-99)
[2018-12-23 11:32] VITALS: BMI 42.2
[2018-12-23] MEDS ORDERED: HEPARIN SODIUM 1,000 UN/ML (10ML VL) ONE (11:45)
[2018-12-23] MEDS ORDERED: VERAPAMIL 2.5 MG/ML 2 ML AMP ONE (11:45)
[2018-12-23] MEDS ORDERED: LIDOCAINE 1% INJ 10MG/ML (20 ML MDV) ONE (11:45)
[2018-12-23] MEDS ORDERED: fentaNYL (PF) 50 MCG/ML 2 ML AMP ONE (11:45)
[2018-12-23] MEDS ORDERED: fentaNYL (PF) 50 MCG/ML 2 ML AMP IV ONE (12:00)
[2018-12-23] MEDS ORDERED: LIDOCAINE 1% INJ 10MG/ML (20 ML MDV) SQ ONE (12:02)
[2018-12-23] MEDS ORDERED: VERAPAMIL SYRINGE (5 MG/10 ML) INTRAARTER ONE (12:04)
[2018-12-23] MEDS ORDERED: HEPARIN SODIUM 1,000 UN/ML (10ML VL) IV ONE (12:05)
[2018-12-23] MEDS ORDERED: IV FLUID CONTINUATION 400 ML IV ONE (12:09)
[2018-12-23] MEDS ORDERED: NITROGLYCERIN 1000MCG/10ML SYRINGE INTRACORON ONE (12:24)
[2018-12-23] MEDS ORDERED: IOPAMIDOL-370 125ML BTL INJ ONE (12:28)
[2018-12-23 12:52] LABS: Glucose,Whole Blood 262 mg/dL (75-99)
[2018-12-23] MEDS ORDERED: RX INFO: IV CONTRAST WAS GIVEN 1 EACH MISC MISCELLANE PRN (12:57)
--- NOTE | 2018-12-23 14:33 | P.CON ---
Consult Note - . Consult date: 12/23/18 Assessment/Plan:: This is a pleasant 72-year-old male who is known to the wound care center with a nonhealing ulceration to the left lower extremity. Patient has hospitalized for revascularization which was planned to assist with wound healing. Patient is being seen for continuity of care and to continue current wound care instructions.patient has a nonhealing ulceration to the left lower extremity medial aspect that is approximately 1 x 1 x 0.3 cm, with adherent Slough and granulation noted in the bed. Patient also has a new ulceration to the anterior lower extremity that is limited to skin breakdown with Slough and minimal granulation. Ulceration is approximately 0.5 x 0.5 x 0.1 cm Assessment/plan: 1. 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 apply collagen and hydrogel, wrap with rolled gauze and secure with 2 layers of Tubigrip continue with wound care appointments as scheduled upon discharge. 2.Type 2 diabetes with other skin ulceration see above 3. 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 DNP note has been reviewed and discussed with Dr. Fernandes and the impression and plan of care has been directed as dictated.
--- NOTE | 2018-12-23 15:01 | P.PN ---
Subjective Progress Note Date: 12/23/18 Patient seen and examined. Overall feeling much better than yesterday. No chest pains at this time. No shortness of breath. Patient evaluated both in the morning and again in the afternoon, he did undergo a heart catheterization which reportedly showed 70% -80 %blockage. Plans from cardiac standpoint are to allow for some renal recovery and fluid hydration and plan for stent placement Objective - Vital Signs Vital signs: Vital Signs Temp 98 F 12/23/18 11:14 Pulse 63 12/23/18 12:57 Resp 18 12/23/18 12:57 BP 137/89 12/23/18 12:57 Pulse Ox 97 12/23/18 12:57 Intake & Output 12/22/18 12/23/18 12/23/18 18:59 06:59 18:59 Intake Total 1143 468 Output Total 200 Balance 1143 268 Weight 137.3 kg Intake: IV 903 100 Oral 240 368 Output: Urine 200 Other: # Voids 1 1 - Exam No acute distress Sitting in chair comfortably. HEENT is normocephalic and atraumatic, extraocular emotion intact. Heart is regular at this time. Lungs are clear bilaterally. Abdomen is soft. Bilateral groin are soft. Right groin puncture site without evidence of hematoma or pseudoaneurysm. Strong biphasic DP PT on the left. Week monophasic DP on the right. Strong monophasic PT - Labs CBC & Chem 7: 12/23/18 05:20 12/23/18 05:20 Labs: Abnormal Lab Results - Last 24 Hours (Table) 12/22/18 12/22/18 12/22/18 Range/Units 16:46 18:44 20:53 RBC (4.30-5.90) m/uL Hgb (13.0-17.5) gm/dL Hct (39.0-53.0) % MCV (80.0-100.0) fL Lymphocytes # (1.0-4.8) k/uL Creatinine (0.66-1.25) mg/dL POC Glucose (mg/dL) 188 H 239 H (75-99) mg/dL Troponin I 0.631 H* (0.000-0.034) ng/mL 12/23/18 12/23/18 12/23/18 Range/Units 05:20 05:20 05:20 RBC 3.29 L (4.30-5.90) m/uL Hgb 11.0 L (13.0-17.5) gm/dL Hct 33.4 L (39.0-53.0) % MCV 101.7 H (80.0-100.0) fL Lymphocytes # 0.9 L (1.0-4.8) k/uL Creatinine 1.55 H (0.66-1.25) mg/dL POC Glucose (mg/dL) (75-99) mg/dL Troponin I 1.740 H* (0.000-0.034) ng/mL 12/23/18 12/23/18 12/23/18 Range/Units 06:04 11:26 12:51 RBC (4.30-5.90) m/uL Hgb (13.0-17.5) gm/dL Hct (39.0-53.0) % MCV (80.0-100.0) fL Lymphocytes # (1.0-4.8) k/uL Creatinine (0.66-1.25) mg/dL POC Glucose (mg/dL) 227 H 284 H 262 H (75-99) mg/dL Troponin I (0.000-0.034) ng/mL Assessment and Plan Assessment: #1 [place] 5 peripheral arterial disease status post atherectomy, angioplasty and stent #2 atrial fibrillation with rapid ventricular response, now converted to sinus #3 elevated troponins #4 acute renal insufficiency Plan: No issues from a vascular surgical standpoint. groins clean and dry. Continue dual antiplatelet. Continue hep gtt per cardio. Plan for cardiac intervention after renal recovery
--- NOTE | 2018-12-23 15:48 | P.CONS ---
History of Present Illness - Reason for Consult Consult date: 12/23/18 Medical management - History of Present Illness This is a pleasant 73-year-old male patient of Dr. Haile Souza and Dr. Connelly past medical history significant for diabetes mellitus, hypertension, dyslipidemia, peripheral vascular disease with chronic ulceration to the left ankle under the [facility], obstructive sleep apnea and morbid obesity. Patient was brought into [facility] for elective left lower extremity atherectomy of the superficial femoral and popiteal artery with balloon angioplasty with Dr. North. Angio-seal was used on the right groin access site. The patient was found by recovery nurse that he was in atrial fibrillation which was a new onset for him. Cardiology was consult and he was started on amiodarone and heparin drips. Patient had troponins obtained which were elevated and he was ruled in for non- ST elevated myocardial infarction. He has undergone heart catheterization that showed blockages with plans for PTCA for tomorrow but most likely on Friday after fluid hydration to improve renal function. Echocardiogram limited study revealed EF of 55-60%. At the time of this evaluation, patient denies having any history of myocardial infarction. He states he had a stress test done about 1-2 months ago which he reports as normal. He denies any shortness of breath with ambulation. His last hemoglobin A1c in November was 7.6. Patient is on 7030 insulin but unfortunately did not receive last evening's dose nor this morning's dose as ordered and blood sugars are elevated in the high 200s. Patient denies any chest pain at this time. Discussed with patient that we will plan for 70/30 insulin tonight at 10 units which is a reduced dose to be given at supper and patient will receive NPH at 20 units in the morning. Patient has been started on NovoLog scale before meals and at bedtime as well. Review of Systems Constitutional: Denies chills, Denies fatigue, Denies fever, Denies poor appetite, Denies weight loss Eyes: denies blurred vision, denies pain Ears, nose, mouth and throat: Denies headache, Denies sore throat, Denies vertigo Cardiovascular: Denies chest pain, Denies decreased exercise tolerance, Denies dyspnea on exertion, Denies edema, Denies leg edema, Denies lightheadedness, Denies palpitations, Denies shortness of breath, Denies syncope Respiratory: Denies cough, Denies cough with sputum, Denies dyspnea, Denies excessive sputum, Denies hemoptysis, Denies home oxygen, Denies wheezing Gastrointestinal: Denies abdominal pain, Denies diarrhea, Denies loss of appetite, Denies nausea, Denies vomiting Genitourinary: Denies dysuria, Denies urinary retention Musculoskeletal: Denies frequent falls, Denies gait dysfunction, Denies muscle weakness, Denies myalgias Integumentary: Denies pruritus, Denies rash, Denies wounds Neurological: Denies numbness, Denies vertigo, Denies weakness Psychiatric: Denies anxiety, Denies depression Endocrine: Denies fatigue, Denies weight change Past Medical History Past Medical History: Diabetes Mellitus, Hyperlipidemia, Hypertension, Osteoarthritis (OA), Sleep Apnea/CPAP/BIPAP, Thyroid Disorder Additional Past Medical History / Comment(s): varicose veins, poor circulation in maren legs, occ edema of maren ankles, c-diff 2012, has open sore on left ankle(on antibiotics) History of Any Multi-Drug Resistant Organisms: None Reported, C-DIFF Year Discovered:: 2012 MDRO Source:: SECONDARY TO ABX FROM KNEE SURGERY Past Surgical History: Bariatric Surgery, Heart Catheterization, Orthopedic Surgery Additional Past Surgical History / Comment(s): BILATERAL KNEE REPLACEMENTS, LEFT SHOULDER TIGHTENED LIGAMENTS/ROTATOR CUFF, LAP BAND 2011, FINGER TRAUMA LED TO AMPUTATION of left index finger, left hip replacement, maren cataracts Past Anesthesia/Blood Transfusion Reactions: No Reported Reaction Smoking Status: Former smoker Additional Past Alcohol Use History / Comment(s): Patient was a smoker and quit 45 years ago. He has very little alcohol intake. He denies any marijuana or illicit drug use. - Past Family History Mother Family Medical History: Dementia Additional Family Medical History / Comment(s): ALZHEIMERS, OF NORMAL CAUSES AT AGE 89 Father Family Medical History: Coronary Artery Disease (CAD), Hypertension Additional Family Medical History / Comment(s): AT AGE 87 from myocardial infarction. Sister(s) Family Medical History: Cancer Additional Family Medical History / Comment(s): Patient has 3 sisters and one has history of lung cancer. Daughter(s) Additional Family Medical History / Comment(s): Patient has 1 son and 1 daughter with no major medical problems. Medications and Allergies Home Medications Medication Instructions Recorded Confirmed Type Atenolol 25 mg PO DAILY 10/23/15 12/22/18 History Insulin NPH/Reg Insulin 70/30 50 unit SQ QAM 10/23/15 12/22/18 History [humuLIN 70/30 VIAL] Levothyroxine Sodium [Synthroid] 25 mcg PO DAILY 10/23/15 12/22/18 History Lisinopril-Hctz 20-25 mg 1 tab PO DAILY 10/23/15 12/22/18 History [Zestoretic 20-25] metFORMIN HCL [Glucophage] 500 mg PO DAILY 10/23/15 12/21/18 History Aspirin EC [Ecotrin] 325 mg PO HS 11/30/18 12/22/18 History Felodipine [Felodipine ER] 5 mg PO QAM 11/30/18 12/22/18 History Insulin NPH Hum/Reg Insulin Hm 10 - 30 unit SQ W/SUPPER PRN 11/30/18 12/22/18 History [Novolin 70-30 100 Unit/ml Vial] Metoprolol Succinate [Toprol XL] 25 mg PO DAILY 11/30/18 12/22/18 History Pravastatin Sodium [Pravachol] 40 mg PO DAILY 11/30/18 12/22/18 History Acetaminophen [Tylenol Extra 1,000 mg PO Q8HR PRN 12/01/18 12/21/18 History Strength] Gabapentin 600 mg PO HS 12/21/18 12/22/18 History Gabapentin [Neurontin] 300 mg PO QAM 12/21/18 12/22/18 History Ibuprofen [Motrin] 400 mg PO Q8HR PRN 12/21/18 12/22/18 History Tamsulosin HCl [Flomax] 0.8 mg PO DAILY 12/23/18 12/23/18 History Allergies Allergy/AdvReac Type Severity Reaction Status Date / Time naproxen [From Naprosyn] Allergy Rash/Hives Verified 12/21/18 09:39 Physical Exam Vitals: Vital Signs Temp Pulse Resp BP Pulse Ox 12/23/18 11:14 98 F 63 18 146/63 94 L 12/23/18 08:42 98.7 F 63 18 146/63 96 12/23/18 08:00 98.1 F 76 18 131/62 95 10/15/19 22:29 72 18 132/58 96 12/22/18 20:00 98 F 71 18 134/62 95 12/22/18 16:00 98 F 60 18 131/61 96 12/22/18 15:09 98.1 F 80 16 111/59 94 L 12/22/18 14:09 114/58 12/22/18 14:00 97.8 F 75 18 116/54 93 L 12/22/18 13:45 97.9 F 83 18 122/61 93 L 12/22/18 13:30 97.8 F 82 16 112/58 94 L Intake and Output 12/22/18 12/23/18 12/23/18 22:59 06:59 14:59 Intake Total 240 468 Output Total 200 Balance 240 268 Intake: IV 100 Oral 240 368 Output: Urine 200 Other: # Voids 1 1 Weight 137.3 kg Gen: This is a 73-year-old male. Patient is sitting up in bed and appears to be comfortable and in no acute distress. Patient's is at bedside. HEENT: Head is atraumatic, normocephalic. Pupils equal, round. Sclerae is anicteric. NECK: Supple. No JVD. No lymphadenopathy. No thyromegaly. LUNGS: Clear to auscultation. No wheezes or rhonchi. No intercostal retractions. HEART: Irregular rate and rhythm. Systolic murmur. ABDOMEN: Soft. Bowel sounds are present. No masses. No tenderness. EXTREMITIES: No pedal edema. No calf tenderness. Dorsalis pedis is +2 bilaterally. Chronic ulceration to the left lower extremitypresent on admission NEUROLOGICAL: Patient is awake, alert and oriented x3. Cranial nerves 2 through 12 are grossly intact. Results CBC & Chem 7: 12/23/18 05:20 12/23/18 05:20 Labs: Abnormal Lab Results - Last 24 Hours (Table) 12/22/18 12/22/18 12/22/18 Range/Units 16:46 18:44 20:53 RBC (4.30-5.90) m/uL Hgb (13.0-17.5) gm/dL Hct (39.0-53.0) % MCV (80.0-100.0) fL Lymphocytes # (1.0-4.8) k/uL Creatinine (0.66-1.25) mg/dL POC Glucose (mg/dL) 188 H 239 H (75-99) mg/dL Troponin I 0.631 H* (0.000-0.034) ng/mL 12/23/18 12/23/18 12/23/18 Range/Units 05:20 05:20 05:20 RBC 3.29 L (4.30-5.90) m/uL Hgb 11.0 L (13.0-17.5) gm/dL Hct 33.4 L (39.0-53.0) % MCV 101.7 H (80.0-100.0) fL Lymphocytes # 0.9 L (1.0-4.8) k/uL Creatinine 1.55 H (0.66-1.25) mg/dL POC Glucose (mg/dL) (75-99) mg/dL Troponin I 1.740 H* (0.000-0.034) ng/mL 12/23/18 12/23/18 12/23/18 Range/Units 06:04 11:26 12:51 RBC (4.30-5.90) m/uL Hgb (13.0-17.5) gm/dL Hct (39.0-53.0) % MCV (80.0-100.0) fL Lymphocytes # (1.0-4.8) k/uL Creatinine (0.66-1.25) mg/dL POC Glucose (mg/dL) 227 H 284 H 262 H (75-99) mg/dL Troponin I (0.000-0.034) ng/mL Assessment and Plan Plan: 1. New onset of atrial fibrillation, paroxysmal atrial fibrillation. Cardiology on consult. Patient is on heparin drip. Amiodarone drip has been discontinued. Continue Lopressor 25 mg twice daily. 2. Non-ST elevated myocardial infarction. Patient has undergone heart catheterization which is found coronary artery disease with plan for PTCA and stenting on most likely Friday of this week. Continue aspirin 81 mg daily, Nitro-Bid, Pravachol, Lopressor 25 mg twice daily. 3. Femoral-popliteal occlusive disease, peripheral artery disease status post left fem-pop atherectomy and balloon angioplasty. Continue Plavix 75 mg daily, aspirin 81 mg daily, pravastatin 40 mg daily. 4. Chronic nonhealing peripheral vascular disease ulcer to the left lower extremity, present on admission. Wound consult appreciated. Continue local wound care with collagen and hydrogel, wrap with rolled gauze and secured with Tubigrip. Patient to follow up with Dr. Fernaneds at the time of discharge. 5. Hypertension. Continue amlodipine 5 mg daily, Zestoretic 1 daily. 6. Diabetes mellitus type 2, insulin requiring. Insulin has been adjusted to NovoLog units before supper today, NPH 20 units in the morning antic ipating the patient may have heart catheterization tomorrow. Continue NovoLog scale before meals and at bedtime. 7. Hyperlipidemia. Continue statin. 8. Hypothyroidism. Continue levothyroxine 25 mg daily. 9. Diabetic neuropathy. Continue gabapentin 300 mg morning and 600 mg at bedtime. 10. Gastroesophageal reflux disease. Pepcid. 11. DVT prophylaxis. Heparin drip. Patient will be admitted to the hospital for a minimum of 2 night stay. Discharge plan: Most likely return home on Friday following PTCA/stenting on Friday. Impression and plan of care have been directed as dictated by the signing physician. Ivy Simpson nurse practitioner acting as scribe for signing physician.
[2018-12-23 16:36] LABS: Glucose,Whole Blood 238 mg/dL (75-99)
[2018-12-23] MEDS: HEPARIN SOD,PORK IN 0.45% NACL 25,000 UNIT in 0.45% NACL 1 250ML.BAG IV SCH (17:14)
[2018-12-23 20:35] LABS: Glucose,Whole Blood 217 mg/dL (75-99)
[2018-12-23] MEDS: AMIODARONE 200 MG TAB PO SCH (21:09)
[2018-12-24 06:17] LABS: Glucose,Whole Blood 236 mg/dL (75-99)
[2018-12-24] MEDS: INSULIN ASPART (NovoLOG) 100 UNIT/ML VIAL SQ SCH ×4 (06:27→20:39)
[2018-12-24] MEDS: LEVOTHYROXINE 25 MCG TAB PO SCH (06:27)
[2018-12-24 07:30] LABS: Basophils % (A) 0 %; Eosinophils # (A) 0.4 k/uL (0-0.7); Eosinophils % (A) 6 %; HCT 32.5 % (39.0-53.0); HGB 10.9 gm/dL (13.0-17.5); Lymphocytes # (A) 1.1 k/uL (1.0-4.8); Lymphocytes % (A) 16 %; MCHC 33.7 g/dL (31.0-37.0); MCV 97.8 fL (80.0-100.0); Mean Platelet Volume 5.9; Monocytes # (A) 0.4 k/uL (0-1.0); Monocytes % (A) 6 %; Neutrophils # (A) 4.9 k/uL (1.3-7.7); Neutrophils % (A) 70 %; Platelet Count 211 k/uL (150-450); RBC 3.32 m/uL (4.30-5.90); RDW 13.1 % (11.5-15.5)
[2018-12-24 08:04] LABS: Calcium 8.9 mg/dL (8.4-10.2); Potassium 4.4 mmol/L (3.5-5.1)
[2018-12-24] MEDS: FAMOTIDINE 20 MG TAB PO SCH (08:20)
[2018-12-24] MEDS: ASPIRIN 81 MG PO SCH (08:20)
[2018-12-24] MEDS: METOPROLOL TARTRATE 25 MG TAB PO SCH ×2 (08:20→20:41)
[2018-12-24] MEDS: AMIODARONE 200 MG TAB PO SCH ×2 (08:20→20:41)
[2018-12-24] MEDS: PRAVASTATIN SODIUM 40 MG TAB PO SCH (08:20)
[2018-12-24] MEDS: CLOPIDOGREL 75 MG TAB PO SCH (08:20)
[2018-12-24] MEDS: traMADol 50 MG TAB PO PRN (08:21)
[2018-12-24] MEDS: LISINOPRIL-HCTZ 20-25 MG 1 EACH TAB PO SCH (08:21)
[2018-12-24] MEDS: GABAPENTIN 300 MG CAP PO SCH ×2 (08:21→21:35)
[2018-12-24] MEDS: amLODIPine 5 MG TAB PO SCH (08:21)
[2018-12-24] MEDS ORDERED: ASPIRIN 325 MG TAB PO STA (09:00)
[2018-12-24] MEDS ORDERED: INSULIN NPH 300 UNIT/3 ML VIAL SQ SCH (09:00)
[2018-12-24] MEDS ORDERED: SODIUM CHLORIDE 0.9% 1,000 ML in EMPTY BAG 1 BAG IV ONE (09:00)
[2018-12-24] MEDS ORDERED: ALPRAZolam 0.25 MG TAB PO PRN (09:00)
[2018-12-24] MEDS ORDERED: ATORVASTATIN 80 MG TAB PO STA (09:00)
[2018-12-24] MEDS ORDERED: NITROGLYCERIN SL TABS 0.4 MG TAB SUBLINGUAL PRN (09:00)
[2018-12-24] MEDS ORDERED: ALPRAZolam 0.5 MG TAB PO PRN (09:00)
[2018-12-24 11:48] LABS: Glucose,Whole Blood 298 mg/dL (75-99)
[2018-12-24] MEDS: HEPARIN SOD,PORK IN 0.45% NACL 25,000 UNIT in 0.45% NACL 1 250ML.BAG IV SCH (12:01)
[2018-12-24] MEDS ORDERED: amLODIPine 5 MG TAB PO STA (12:54)
--- NOTE | 2018-12-24 15:34 | P.PN ---
Subjective Progress Note Date: 12/24/18 This is a pleasant 73-year-old male patient of Dr. Haile Souza and Dr. Connelly past medical history significant for diabetes mellitus, hypertension, dyslipidemia, peripheral vascular disease with chronic ulceration to the left ankle under the care [facility], obstructive sleep apnea and morbid obesity. Patient was brought into [facility] for elective left lower extremity atherectomy of the superficial femoral and popiteal artery with balloon angioplasty with Dr. North. Angio-seal was used on the right groin access site. The patient was found by recovery nurse that he was in atrial fibrillation which was a new onset for him. Cardiology was consult and he was started on amiodarone and heparin drips. Patient had troponins obtained which were elevated and he was ruled in for non- ST elevated myocardial infarction. He has undergone heart catheterization that showed blockages with plans for PTCA for tomorrow but most likely on Friday after fluid hydration to improve renal function. Echocardiogram limited study revealed EF of 55-60%. At the time of this evaluation, patient denies having any history of myocardial infarction. He states he had a stress test done about 1-2 months ago which he reports as normal. He denies any shortness of breath with ambulation. His last hemoglobin A1c in November was 7.6. Patient is on 7030 insulin but unfortunately did not receive last evening's dose nor this morning's dose as ordered and blood sugars are elevated in the high 200s. Patient denies any chest pain at this time. Discussed with patient that we will plan for 70/30 insulin tonight at 10 units which is a reduced dose to be given at supper and patient will receive NPH at 20 units in the morning. Patient has been started on NovoLog scale before meals and at bedtime as well. 12/24: Blood sugars are running high again today as patient received a lower dose of insulin 7 is not nothing by mouth today. We will plan to increase NPH to 25 units for tomorrow morning and 70/30 will be increased 15 units at supper. Continue NovoLog scale. Patient is scheduled for PTCA/stent tomorrow. Renal function is significantly improved with BUN 30, creatinine 1.18, potassium 4.4. Objective - Vital Signs Vital signs: Vital Signs Temp 97.6 F 12/24/18 08:00 Pulse 82 12/24/18 08:00 Resp 16 12/24/18 08:00 BP 172/71 12/24/18 08:00 Pulse Ox 94 L 12/24/18 08:00 Intake & Output 12/23/18 12/24/18 12/24/18 18:59 06:59 18:59 Intake Total 968 81.683 138.038 Output Total 200 370 850 Balance 768 -288.317 -711.962 Weight 137.3 kg 135.5 kg Intake: IV 100 Intake, IV Titration 250 81.683 138.038 Amount Heparin Sod,Pork in 0.45% 250 81.683 138.038 NaCl 25,000 unit In 0.45 % NaCl 1 250ml.bag @ 7.5 UNITS/KG/HR 10.002 mls/hr IV .Q24H [facility] Rx#: [id number] Oral 618 Output: Urine 200 370 850 Other: Voiding Method Urinal Urinal # Voids 1 2 - Exam Review of Systems Constitutional: Denies chills, Denies fatigue, Denies fever, Denies poor appetite, Denies weight loss Eyes: denies blurred vision, denies pain Ears, nose, mouth and throat: Denies headache, Denies sore throat, Denies vertigo Cardiovascular: Denies chest pain, Denies decreased exercise tolerance, Denies dyspnea on exertion, Denies edema, Denies leg edema, Denies lightheadedness, Denies palpitations, Denies shortness of breath, Denies syncope Respiratory: Denies cough, Denies cough with sputum, Denies dyspnea, Denies excessive sputum, Denies hemoptysis, Denies home oxygen, Denies wheezing Gastrointestinal: Denies abdominal pain, Denies diarrhea, Denies loss of appetite, Denies nausea, Denies vomiting Genitourinary: Denies dysuria, Denies urinary retention Musculoskeletal: Denies frequent falls, Denies gait dysfunction, Denies muscle weakness, Denies myalgias Integumentary: Denies pruritus, Denies rash, Denies wounds Neurological: Denies numbness, Denies vertigo, Denies weakness Psychiatric: Denies anxiety, Denies depression Endocrine: Denies fatigue, Denies weight change, reports elevated blood sugar Gen: This is a 73-year-old male. Patient is sitting on edge of bed and appears to be comfortable and in no acute distress. Patient's is at bedside. HEENT: Head is atraumatic, normocephalic. Pupils equal, round. Sclerae is anicteric. NECK: Supple. No JVD. No lymphadenopathy. No thyromegaly. LUNGS: Clear to auscultation. No wheezes or rhonchi. No intercostal retractions. HEART: Irregular rate and rhythm. Systolic murmur. ABDOMEN: Soft. Bowel sounds are present. No masses. No tenderness. EXTREMITIES: No pedal edema. No calf tenderness. Dorsalis pedis is +2 bilaterally. Chronic ulceration to the left lower extremitypresent on admission NEUROLOGICAL: Patient is awake, alert and oriented x3. Cranial nerves 2 through 12 are grossly intact. - Labs CBC & Chem 7: 12/24/18 07:05 12/24/18 07:05 Labs: Abnormal Lab Results - Last 24 Hours (Table) 12/23/18 12/23/18 12/23/18 Range/Units 05:20 12:51 16:35 RBC (4.30-5.90) m/uL Hgb (13.0-17.5) gm/dL Hct (39.0-53.0) % APTT (22.0-30.0) sec Chloride (98-107) mmol/L BUN (9-20) mg/dL Creatinine 1.55 H (0.66-1.25) mg/dL Glucose (74-99) mg/dL POC Glucose (mg/dL) 262 H 238 H (75-99) mg/dL 12/23/18 12/24/18 12/24/18 Range/Units 20:33 00:10 06:16 RBC (4.30-5.90) m/uL Hgb (13.0-17.5) gm/dL Hct (39.0-53.0) % APTT 36.4 H (22.0-30.0) sec Chloride (98-107) mmol/L BUN (9-20) mg/dL Creatinine (0.66-1.25) mg/dL Glucose (74-99) mg/dL POC Glucose (mg/dL) 217 H 236 H (75-99) mg/dL 12/24/18 12/24/18 12/24/18 Range/Units 07:05 07:05 07:05 RBC 3.32 L (4.30-5.90) m/uL Hgb 10.9 L (13.0-17.5) gm/dL Hct 32.5 L (39.0-53.0) % APTT 38.1 H (22.0-30.0) sec Chloride 108 H (98-107) mmol/L BUN 30 H (9-20) mg/dL Creatinine (0.66-1.25) mg/dL Glucose 209 H (74-99) mg/dL POC Glucose (mg/dL) (75-99) mg/dL 12/24/18 Range/Units 11:47 RBC (4.30-5.90) m/uL Hgb (13.0-17.5) gm/dL Hct (39.0-53.0) % APTT (22.0-30.0) sec Chloride (98-107) mmol/L BUN (9-20) mg/dL Creatinine (0.66-1.25) mg/dL Glucose (74-99) mg/dL POC Glucose (mg/dL) 298 H (75-99) mg/dL Assessment and Plan Plan: 1. New onset of atrial fibrillation, paroxysmal atrial fibrillation. Cardiology on consult. Patient is on heparin drip. Amiodarone drip has been discontinued. Continue Lopressor 25 mg twice daily. 2. Non-ST elevated myocardial infarction. Patient has undergone heart catheterization which is found coronary artery disease with plan for PTCA and stenting on Friday of this week. Continue aspirin 81 mg daily, Nitro-Bid, Pravachol, Lopressor 25 mg twice daily. 3. Femoral-popliteal occlusive disease, peripheral artery disease status post left fem-pop atherectomy and balloon angioplasty. Continue Plavix 75 mg daily, aspirin 81 mg daily, pravastatin 40 mg daily. 4. Chronic nonhealing peripheral vascular disease ulcer to the left lower extremity, present on admission. Wound consult appreciated. Continue local wound care with collagen and hydrogel, wrap with rolled gauze and secured with Tubigrip. Patient to follow up with Dr. Fernandes at the time of discharge. 5. Hypertension. Continue amlodipine 5 mg daily, Zestoretic 1 daily. 6. Diabetes mellitus type 2, insulin requiring. Insulin has been adjusted to NovoLog 70/30 15 units before supper today, NPH 25 units in the morning anticipating the patient may have heart catheterization tomorrow. Continue NovoLog scale before meals and at bedtime. 7. Hyperlipidemia. Continue statin. 8. Hypothyroidism. Continue levothyroxine 25 mg daily. 9. Diabetic neuropathy. Continue gabapentin 300 mg morning and 600 mg at bedtime. 10. Gastroesophageal reflux disease. Pepcid. 11. DVT prophylaxis. Heparin drip. Discharge plan: Most likely return home on Friday following PTCA/stenting on Friday. Impression and plan of care have been directed as dictated by the signing physician. Ivy Simpson nurse practitioner acting as scribe for signing physician.
[2018-12-24 16:38] LABS: Glucose,Whole Blood 200 mg/dL (75-99)
[2018-12-24] MEDS: INSULN ASP PRT/INSULIN ASPART 100 UNIT/ML 10 ML VIAL SQ SCH (17:39)
[2018-12-24 20:45] LABS: Glucose,Whole Blood 194 mg/dL (75-99)
[2018-12-25 06:26] LABS: Glucose,Whole Blood 191 mg/dL (75-99)
[2018-12-25] MEDS: INSULIN ASPART (NovoLOG) 100 UNIT/ML VIAL SQ SCH ×4 (06:42→20:29)
[2018-12-25] MEDS: LEVOTHYROXINE 25 MCG TAB PO SCH (06:42)
[2018-12-25 08:44] LABS: Basophils # (A) 0.1 k/uL (0-0.2); Basophils % (A) 1 %; Eosinophils # (A) 0.3 k/uL (0-0.7); Eosinophils % (A) 6 %; HCT 34.7 % (39.0-53.0); HGB 11.2 gm/dL (13.0-17.5); Lymphocytes % (A) 16 %; MCH 32.5 pg (25.0-35.0); MCHC 32.4 g/dL (31.0-37.0); MCV 100.2 fL (80.0-100.0); Mean Platelet Volume 6.4; Monocytes # (A) 0.4 k/uL (0-1.0); Monocytes % (A) 6 %; Neutrophils # (A) 4.2 k/uL (1.3-7.7); Neutrophils % (A) 68 %; Platelet Count 224 k/uL (150-450); RBC 3.46 m/uL (4.30-5.90); RDW 13.4 % (11.5-15.5); WBC 6.2 k/uL (3.8-10.6)
[2018-12-25] MEDS: GABAPENTIN 300 MG CAP PO SCH ×2 (08:46→20:28)
[2018-12-25] MEDS: AMIODARONE 200 MG TAB PO SCH ×2 (08:46→20:28)
[2018-12-25] MEDS: PRAVASTATIN SODIUM 40 MG TAB PO SCH (08:46)
[2018-12-25] MEDS: METOPROLOL TARTRATE 25 MG TAB PO SCH ×2 (08:46→20:28)
[2018-12-25] MEDS: LISINOPRIL-HCTZ 20-25 MG 1 EACH TAB PO SCH (08:46)
[2018-12-25] MEDS: ASPIRIN 81 MG PO SCH (08:46)
[2018-12-25] MEDS: CLOPIDOGREL 75 MG TAB PO SCH (08:46)
[2018-12-25] MEDS: amLODIPine 10 MG TAB PO SCH (08:46)
[2018-12-25] MEDS: FAMOTIDINE 20 MG TAB PO SCH (08:47)
[2018-12-25 09:13] LABS: Potassium 4.3 mmol/L (3.5-5.1)
[2018-12-25] MEDS ORDERED: VERAPAMIL 2.5 MG/ML 2 ML AMP ONE (10:51)
[2018-12-25] MEDS ORDERED: LIDOCAINE 1% INJ 10MG/ML (20 ML MDV) ONE (10:51)
[2018-12-25] MEDS ORDERED: fentaNYL (PF) 50 MCG/ML 2 ML AMP ONE (11:11)
[2018-12-25] MEDS ORDERED: fentaNYL (PF) 50 MCG/ML 2 ML AMP IV ONE (11:14)
[2018-12-25] MEDS ORDERED: IV FLUID CONTINUATION 1,000 ML IV ONE (11:15)
--- NOTE | 2018-12-25 11:28 | P.CARDCATH ---
Date of Procedure: 12/23/18 Preoperative Diagnosis: Non-STEMI Postoperative Diagnosis: Critical lesion involving the ostium of the right coronary artery and also proximal RCA. Total occlusion of the left circumflex Procedure(s) Performed: Left heart catheterization without left ventriculography Description of Procedure: HISTORY: This is a 73-year-old gentleman with history of hypertension, diabetes mellitus and hypercholesterolemia and peripheral vascular disease who underwent surgical procedure for ischemia of the left leg. Postoperatively patient developed symptoms of shortness of breath and atrial fibrillation with moderately rapid ventricular response. Had some ischemic changes on EKG and troponin went up to 1.7. Patient is advised to have a cardiac catheterization for definitive diagnosis. His creatinine was 1.9 yesterday 1.5 Today. CONSENT:I have discussed the risks, benefits and alternative therapies for the above-mentioned procedure and for both sedation/analgesia as well as necessary blood product administration, if indicated, as they pertain to this patient. The patient has indicated understanding and acceptance of the risks and procedures discussed. PROCEDURE: Patient was brought to the lab in a fasting state. Patient was given some IV sedation. The right wrist is infiltrated with lidocaine and right radial artery was entered using Seldinger technique. A 6-Prydeinig catheter was left in place and selective coronary arteriography was performed. Patient tolerated the procedure well. TR band was applied for hemostasis. No immediate complications were noted and patient was transferred to [facility] in a stable condit ion Conscious Sedation: Versed 0mg Fentanyl 50 g Duration 45minutes HEMODYNAMICS: The aortic pressure was about 140/70 SELECTIVE CORONARY ARTERIOGRAPHY: LEFT MAIN: Normal length with mild disease THE LEFT ANTERIOR DESCENDING CORONARY ARTERY:. This is a good caliber vessel giving rise to good-sized diagonal branch. The diagonal branch is about 60 percent ostial stenosis THE LEFT CIRCUMFLEX AND IS CORONARY ARTERY: This is totally occluded in the proximal portion THE RIGHT CORONARY ARTERY:. This is a good caliber vessel with a significant ostial stenosis within them happening of the catheter. His felt ostial stenosis about 80%. There is also proximal RCA lesion with about 70% stenosis. Mid RCA has about 40-50% lesion. He did use ice to good- sized PDA and PLV which are free of occlusive disease LEFT VENTRICULOGRAPHY:. Not performed FINAL IMPRESSION: Total occlusion of the circumflex. Moderate disease in the ostium of the diagonal. Critical lesion involving the ostium in the proximal portion of the RCA PLAN: Stent placement of the RCA to be done by Dr. Drummond PROGNOSIS: Guarded
[2018-12-25] MEDS ORDERED: LIDOCAINE 1% INJ 10MG/ML (20 ML MDV) SQ ONE (11:37)
[2018-12-25] MEDS ORDERED: VERAPAMIL SYRINGE (5 MG/10 ML) INTRAARTER ONE (11:40)
[2018-12-25] MEDS ORDERED: BIVALIRUDIN BOLUS 250 MG/50 ML IV ONE (11:44)
[2018-12-25] MEDS ORDERED: BIVALIRUDIN 250 MG in SODIUM CHLORIDE 0.9% 50 ML IV ONE (11:45)
[2018-12-25] MEDS ORDERED: NITROGLYCERIN 1000MCG/10ML SYRINGE INTRAARTER ONE (11:53)
[2018-12-25] MEDS ORDERED: IOPAMIDOL-370 125ML BTL INJ ONE (11:56)
[2018-12-25] MEDS ORDERED: IOPAMIDOL-370 100ML BTL INJ ONE (12:15)
[2018-12-25] MEDS ORDERED: ATROPINE SULFATE 0.1 MG/ML 10ML SYRINGE IV PRN (12:31)
[2018-12-25] MEDS ORDERED: RX INFO: IV CONTRAST WAS GIVEN 1 EACH MISC MISCELLANE PRN (12:31)
[2018-12-25] MEDS ORDERED: NITROGLYCERIN SL TABS 0.4 MG TAB SUBLINGUAL PRN (12:31)
[2018-12-25] MEDS ORDERED: ZOLPIDEM 5 MG TAB PO PRN (12:31)
[2018-12-25] MEDS ORDERED: MAG HYDROX/AL HYDROX/SIMETH 30 ML CUP PO PRN (12:31)
[2018-12-25] MEDS ORDERED: SODIUM CHLORIDE 0.9% 1,000 ML IV SCH (12:45)
--- NOTE | 2018-12-25 12:47 | LTR ---
DATE OF SERVICE: 12/25/2018 RE: Jeff Uriostegui Dear Dr. Souza; I had the pleasure to perform coronary angioplasty and stenting on Mr. Uriostegui at [facility] on December 25, 2018 and a full copy of the procedure note will be forwarded to you. In brief, he underwent successful stenting of the ostium of his right coronary artery. At this time, I will continue on Plavix anticoagulation in view of his history of paroxysmal atrial fibrillation and will hold on his aspirin. I will keep you updated on his progress, and thank you again for allowing me to participate in this patient's care. Please feel free to call for any questions. Sincerely yours, MD JALEN Solorzano / LEO: [id number] /
--- NOTE | 2018-12-25 12:47 | PTCA ---
PERCUTANEOUSTRANS CORORONARY ANGIOGRAPHY Mr. Uriostegui is a 73-year-old male with known history of peripheral vascular disease who underwent percutaneous revascularization of lower extremities by Dr. North. Postprocedure, he had an episode of atrial fibrillation with chest discomfort and ST- segment changes with mild troponin elevation. He underwent cardiac catheterization by Dr. Connelly and was found to have an ostial lesion in the RCA. In view of that, recommendation regarding coronary angioplasty and stenting, The procedures, risks, and complication were discussed with the patient who is in full understanding and agreement. PROCEDURE: Patient was brought to label fuser tender in a fasting semi-sedated state after receiving fentanyl and Benadryl and achieving moderate conscious sedated state. Using Xylocaine anesthesia and Seldinger technique, a 6-Burkinan sheath was introduced in the right radial artery. Following that, a 6-Burkinan FR3.5 guiding catheter introduced into the system, but because of the poor backup that catheter was exchanged to a 6-Burkinan FR4 guiding catheter. After cannulating the right coronary ostium, a 0.014 balanced medium weight J-wire was advanced across the lesion, positioned distally. Subsequently, a 0.014 whisper J-wire was advanced next to the first one and positioned in a fab fashion, subsequently a 2.5 x 12 mm Trek balloon was advanced one inflation at 10 atmospheres was done. Then the balloon was removed and a 3.0 x 15 mm Xience Opal stent was advanced, deployed and postdilated to 16 atmospheres. After removing the balloon, a 3.25 x 12 mm NC Trek balloon was advanced and one inflation at the proximal segment of the stent was performed. After the last inflation, after appropriate wait, the balloon and the guidewire were withdrawn back in the guiding catheter. Images were obtained and repeated. Those images reveal stable successful stenting. At that point, the guiding catheter, the balloon and the guidewire were removed. The sheath was removed. Hemostasis was obtained with deployment of a TR band. There was no immediate complication. Patient is returned to his room in stable condition. Of note, the patient had no chest discomfort or EKG changes with the inflations. He received Angiomax per protocol as well as continuing on clopidogrel. RESULTS: Successful stenting of the ostial right coronary artery with reduction of stenosis from 80% to 0%. RECOMMENDATION: Patient will be continued on Plavix anticoagulation in view of the history of paroxysmal atrial fibrillation as well as statin. The importance of dual antiplatelet treatment was discussed with the patient and his family and they are in full understanding and agreement. JALEN / PBN: [id number] /
[2018-12-25] MEDS: INSULIN NPH 300 UNIT/3 ML VIAL SQ SCH (13:09)
[2018-12-25 13:10] LABS: Glucose,Whole Blood 196 mg/dL (75-99)
--- NOTE | 2018-12-25 16:33 | P.PN ---
Subjective Progress Note Date: 12/25/18 This is a pleasant 73-year-old male patient of Dr. Haile Souza and Dr. Connelly past medical history significant for diabetes mellitus, hypertension, dyslipidemia, peripheral vascular disease with chronic ulceration to the left ankle under the care of [facility], obstructive sleep apnea and morbid obesity. Patient was brought into [facility] for elective left lower extremity atherectomy of the superficial femoral and popiteal artery with balloon angioplasty with Dr. North. Angio-seal was used on the right groin access site. The patient was found by recovery nurse that he was in atrial fibrillation which was a new onset for him. Cardiology was consult and he was started on amiodarone and heparin drips. Patient had troponins obtained which were elevated and he was ruled in for non- ST elevated myocardial infarction. He has undergone heart catheterization that showed blockages with plans for PTCA for tomorrow but most likely on Friday after fluid hydration to improve renal function. Echocardiogram limited study revealed EF of 55-60%. At the time of this evaluation, patient denies having any history of myocardial infarction. He states he had a stress test done about 1-2 months ago which he reports as normal. He denies any shortness of breath with ambulation. His last hemoglobin A1c in November was 7.6. Patient is on 7030 insulin but unfortunately did not receive last evening's dose nor this morning's dose as ordered and blood sugars are elevated in the high 200s. Patient denies any chest pain at this time. Discussed with patient that we will plan for 70/30 insulin tonight at 10 units which is a reduced dose to be given at supper and patient will receive NPH at 20 units in the morning. Patient has been started on NovoLog scale before meals and at bedtime as well. 12/24: Blood sugars are running high again today as patient received a lower dose of insulin 7 is not nothing by mouth today. We will plan to increase NPH to 25 units for tomorrow morning and 70/30 will be increased 15 units at supper. Continue NovoLog scale. Patient is scheduled for PTCA/stent tomorrow. Renal function is significantly improved with BUN 30, creatinine 1.18, potassium 4.4. 12/25: Patient has been afebrile, heart rate 71, blood pressure 188/79, pulse ox 90% on room air. Blood sugars are running between 176 and 194. Hemoglobin 11.2, BUN 30 and creatinine 1.14, potassium 4.3. Heart catheterization had revealed a total occlusion of the circumflex. Moderate disease in the ostium of the diagonal. Critical lesion involving the ostium in the proximal portion of the RCA. Heart catheterization was performed on December [address] Connelly. Today, patient underwent successful stenting of the ostial right coronary artery with reduction of stenosis from 80% to [address] Drummond. The patient is seen in the postop period and denies any chest pain or shortness of breath. He is complaining of difficulty sleeping for which melatonin has been added. Anticipate probable discharge tomorrow. Objective - Vital Signs Vital signs: Vital Signs Temp 98.7 F 12/25/18 08:00 Pulse 71 12/25/18 08:00 Resp 16 12/25/18 08:00 BP 188/79 12/25/18 08:00 Pulse Ox 98 12/25/18 08:00 Intake & Output 12/24/18 12/25/18 12/25/18 18:59 06:59 18:59 Intake Total 764.010 134.423 Output Total 1250 450 400 Balance -485.990 -315.577 -400 Weight 137.4 kg Intake: Intake, IV Titration 174.010 134.423 Amount Heparin Sod,Pork in 0.45% 174.010 134.423 NaCl 25,000 unit In 0.45 % NaCl 1 250ml.bag @ 7.5 UNITS/KG/HR 10.002 mls/hr IV .Q24H [facility] Rx#: [id number] Oral 590 Output: Urine 1250 450 400 Other: Voiding Method Urinal Urinal # Voids 2 2 - Exam Review of Systems Constitutional: Denies chills, Denies fatigue, Denies fever, Denies poor appetite, Denies weight loss Eyes: denies blurred vision, denies pain Ears, nose, mouth and throat: Denies headache, Denies sore throat, Denies vertigo Cardiovascular: Denies chest pain, Denies decreased exercise tolerance, Denies dyspnea on exertion, Denies leg edema, Denies lightheadedness, Denies palpitations, Denies shortness of breath, Denies syncope Respiratory: Denies cough, Denies cough with sputum, Denies dyspnea, Denies excessive sputum, Denies hemoptysis, Denies home oxygen, Denies wheezing Gastrointestinal: Denies abdominal pain, Denies diarrhea, Denies loss of appetite, Denies nausea, Denies vomiting Genitourinary: Denies dysuria, Denies urinary retention Musculoskeletal: Denies frequent falls, Denies gait dysfunction, Denies muscle weakness, Denies myalgias Integumentary: Denies pruritus, Denies rash, Denies wounds Neurological: Denies numbness, Denies vertigo, Denies weakness Psychiatric: Denies anxiety, Denies depression Endocrine: Denies fatigue, Denies weight change, reports elevated blood sugar Gen: This is a 73-year-old male. Patient appears to be comfortable and in no acute distress. Patient's is at bedside. HEENT: Head is atraumatic, normocephalic. Pupils equal, round. Sclerae is a nicteric. NECK: Supple. No JVD. No lymphadenopathy. No thyromegaly. LUNGS: Clear to auscultation. No wheezes or rhonchi. No intercostal retractions. HEART: Irregular rate and rhythm. Systolic murmur. ABDOMEN: Soft. Bowel sounds are present. No masses. No tenderness. EXTREMITIES: No pedal edema. No calf tenderness. Dorsalis pedis is +2 bilaterally. Chronic ulceration to the left lower extremitypresent on admission NEUROLOGICAL: Patient is awake, alert and oriented x3. Cranial nerves 2 through 12 are grossly intact. - Labs CBC & Chem 7: 12/25/18 07:28 12/25/18 07:28 Labs: Abnormal Lab Results - Last 24 Hours (Table) 12/24/18 12/24/18 12/24/18 Range/Units 11:47 12:36 16:37 RBC (4.30-5.90) m/uL Hgb (13.0-17.5) gm/dL Hct (39.0-53.0) % MCV (80.0-100.0) fL APTT 36.9 H (22.0-30.0) sec Chloride (98-107) mmol/L BUN (9-20) mg/dL Glucose (74-99) mg/dL POC Glucose (mg/dL) 298 H 200 H (75-99) mg/dL 1012/24/18 12/25/18 Range/Units 19:43 20:37 06:24 RBC (4.30-5.90) m/uL Hgb (13.0-17.5) gm/dL Hct (39.0-53.0) % MCV (80.0-100.0) fL APTT 45.6 H (22.0-30.0) sec Chloride (98-107) mmol/L BUN (9-20) mg/dL Glucose (74-99) mg/dL POC Glucose (mg/dL) 194 H 191 H (75-99) mg/dL 12/25/18 12/25/18 12/25/18 Range/Units 07:28 07:28 07:28 RBC 3.46 L (4.30-5.90) m/uL Hgb 11.2 L (13.0-17.5) gm/dL Hct 34.7 L (39.0-53.0) % MCV 100.2 H (80.0-100.0) fL APTT 38.0 H (22.0-30.0) sec Chloride 108 H (98-107) mmol/L BUN 30 H (9-20) mg/dL Glucose 176 H (74-99) mg/dL POC Glucose (mg/dL) (75-99) mg/dL Assessment and Plan Plan: 1. New onset of atrial fibrillation, paroxysmal atrial fibrillation. Cardiology on consult. Amiodarone drip has been discontinued. Continue amiodarone 200 mg twice daily, Lopressor 25 mg twice daily and eliquis 5 mg twice daily. 2. Non-ST elevated myocardial infarction. Status post heart catheterization and stenting of the ostial right coronary artery. Continue Plavix 75 mg daily, Lopressor 25 mg twice daily, atorvastatin 40 mg daily. 3. Femoral-popliteal occlusive disease, peripheral artery disease status post left fem-pop atherectomy and balloon angioplasty. Continue Plavix 75 mg daily, atorvastatin. 4. Chronic nonhealing peripheral vascular disease ulcer to the left lower extremity, present on admission. Wound consult appreciated. Continue local wound care with collagen and hydrogel, wrap with rolled gauze and secured with Tubigrip. Patient to follow up with Dr. Fernandes at the time of discharge. 5. Hypertension. Continue amlodipine increased to 10 mg daily, Zestoretic 1 daily. 6. Diabetes mellitus type 2, insulin requiring. Insulin has been adjusted to NovoLog 70/30 15 units before supper today, NPH 25 units in the morning. Patient may resume home insulins at discharge. Metformin on hold. 7. Hyperlipidemia. Continue statin. 8. Hypothyroidism. Continue levothyroxine 25 mg daily. 9. Diabetic neuropathy. Continue gabapentin 300 mg morning and 600 mg at bedtime. 10. Gastroesophageal reflux disease. Pepcid. 11. DVT prophylaxis. Discharge plan: home on Friday Impression and plan of care have been directed as dictated by the signing physician. Ivy Simpson nurse practitioner acting as scribe for signing physician.
[2018-12-25 17:04] LABS: Glucose,Whole Blood 174 mg/dL (75-99)
[2018-12-25] MEDS: INSULN ASP PRT/INSULIN ASPART 100 UNIT/ML 10 ML VIAL SQ SCH (17:21)
[2018-12-25 20:22] LABS: Glucose,Whole Blood 183 mg/dL (75-99)
[2018-12-26 01:04] VITALS: RESP 18
[2018-12-26 06:12] LABS: Glucose,Whole Blood 119 mg/dL (75-99)
[2018-12-26] MEDS: INSULIN ASPART (NovoLOG) 100 UNIT/ML VIAL SQ SCH ×2 (06:13→12:16)
[2018-12-26] MEDS: LEVOTHYROXINE 25 MCG TAB PO SCH (06:17)
[2018-12-26 07:53] LABS: Calcium 8.7 mg/dL (8.4-10.2); Potassium 4.3 mmol/L (3.5-5.1)
[2018-12-26] MEDS: LISINOPRIL-HCTZ 20-25 MG 1 EACH TAB PO SCH (08:27)
[2018-12-26] MEDS: amLODIPine 10 MG TAB PO SCH (08:27)
[2018-12-26] MEDS: INSULIN NPH 300 UNIT/3 ML VIAL SQ SCH (08:28)
[2018-12-26] MEDS: METOPROLOL TARTRATE 25 MG TAB PO SCH (08:28)
[2018-12-26] MEDS: GABAPENTIN 300 MG CAP PO SCH (08:28)
[2018-12-26] MEDS: FAMOTIDINE 20 MG TAB PO SCH (08:28)
[2018-12-26] MEDS: CLOPIDOGREL 75 MG TAB PO SCH (08:28)
[2018-12-26] MEDS: AMIODARONE 200 MG TAB PO SCH (08:28)
[2018-12-26] MEDS ORDERED: APIXABAN 5 MG TAB PO SCH (09:00)
[2018-12-26] MEDS ORDERED: ATORVASTATIN 40 MG TAB PO SCH (09:00)
[2018-12-26 11:56] LABS: Glucose,Whole Blood 250 mg/dL (75-99)
--- NOTE | 2018-12-26 11:58 | P.PN ---
Subjective This is Christine Mcwilliams PA-C dictating a progress note on this patient The patient was interviewed and examined by me as well as by Dr. Mulligan Case discussed with Dr. Mulligan and he agrees with the plan of care IMPRESSION / ASSESSMENT: CAD status post stenting to the RCA NSTEMI Recent echo showing preserved LV systolic function, EF 55-60% paroxysmal atrial fibrillation, has been in sinus rhythm, anticoagulated with eliquis PAD status post left fem-pop arthrectomy and balloon angioplasty Hypertension Diabetes Dyslipidemia PLAN: Patient is cleared for discharge from a cardiac standpoint He will go home on eliquis and Plavix per Dr. Drummond Continue amiodarone 200 mg twice a day and gradually reduce the dose thereafter Continue metoprolol Continue amlodipine, lisinopril and hydrochlorothiazide for blood pressure control Continue atorvastatin 40 mg daily Follow-up in the office within a week HPI/interval history Patient is a 73-year-old male with past medical history significant for diabetes, hypertension, peripheral vascular disease and LEIGHANN presented to the hospital for an elective left lower extremity arthrectomy and SFA and popliteal artery angioplasty with Dr. North. Postoperatively he went into atrial fibrillation and his EKG showed some ST changes. Troponins were elevated. He underwent a coronary angiogram which showed total occlusion in the proximal left circumflex and moderate disease in the ostium of the diagonal, critical lesion involving the proximal RCA. Yesterday he underwent successful stenting of the ostial RCA. He has done well overnight. He has been in sinus rhythm overnight on telemetry. Patient seen and examined resting comfortably in bed. States he feels much better since he is unable to take a shower. Denies any chest pain or shortness of breath. Has been up walking around, no dizziness. EXAMINATION Temperature 98F, pulse 73, respirations 18, blood pressure 150/68, oxygen saturation 97% on room air Patient seen and examined resting comfortably in bed, no acute distress Lungs to auscultation bilaterally Heart is regular, systolic murmur noted radial pulse intact in the right arm Trace lower extremity edema bilaterally ulcers in the left lower extremity REVIEW OF LABS, ECG wBC 6.2, hemoglobin 11.2, platelets 224, potassium 4.3, BUN 24, creatinine 1.11 Objective - Vital Signs Vital signs: Vital Signs Temp 98 F 12/26/18 08:00 Pulse 73 12/26/18 08:00 Resp 18 12/26/18 08:30 BP 150/68 12/26/18 08:00 Pulse Ox 97 12/26/18 08:00 Intake & Output 12/25/18 12/26/18 12/26/18 18:59 06:59 18:59 Intake Total 630 118 Output Total 1000 1100 Balance -370 -1100 118 Weight 137.4 kg 137 kg Intake: IV 150 Oral 480 118 Output: Urine 1000 1100 Other: Voiding Method Urinal Urinal Urinal # Voids 1 - Labs CBC & Chem 7: 12/25/18 07:28 12/26/18 05:54 Labs: Abnormal Lab Results - Last 24 Hours (Table) 12/25/18 12/25/18 12/25/18 Range/Units 12:50 17:03 20:21 Chloride (98-107) mmol/L Carbon Dioxide (22-30) mmol/L BUN (9-20) mg/dL POC Glucose (mg/dL) 196 H 174 H 183 H (75-99) mg/dL 12/26/18 12/26/18 Range/Units 05:54 06:11 Chloride 109 H (98-107) mmol/L Carbon Dioxide 21 L (22-30) mmol/L BUN 24 H (9-20) mg/dL POC Glucose (mg/dL) 119 H (75-99) mg/dL
--- NOTE | 2018-12-26 12:47 | P.DS ---
Providers Date of admission: 12/23/18 12:57 Expected date of discharge: 12/26/18 Attending physician: Cari North DO Consults: 12/22/18 11:31 Consult Physician Urgent Consulting Provider: Rambo Mulligan Consult Reason/Comments: new onset afib Do you want consulting provider notified?: Yes 12/22/18 12:32 Consult Physician Urgent Consulting Provider: Isela Bashir Consult Reason/Comments: PO revascularization, new onset a fib Do you want consulting provider notified?: Yes 12/25/18 12:31 Consult Physician Routine Consulting Provider: [facility] Consult Reason/Comments: Post Interventional patient Do you want consulting provider notified?: Already Contacted Primary care physician: [facility] Course: Patient was admitted to the hospital. He did undergo atherectomy of the left lower extremity. The postoperative course was complicated by cardiac to reverse arrhythmia and an nSTEMI. This resulted in a cardiology evaluation. Patient did undergo cardiac catheterization and did undergo percutaneous cardiac intervention. The patient responded well to both the lower extremity and the cardiac interventions. Procedures: #1 Left superficial femoral atherectomy #2 cardiac angiography with percutaneous intervention Patient Condition at Discharge: Good Plan - Discharge Summary Discharge Rx Participant: Yes New Discharge Prescriptions: New Amiodarone [Cordarone] 200 mg PO BID #180 tab Apixaban [Eliquis] 5 mg PO BID #180 tab Atorvastatin [Lipitor] 40 mg PO HS #90 tablet amLODIPine [Norvasc] 10 mg PO DAILY #90 tablet Clopidogrel Bisulfate [Plavix] 75 mg PO DAILY #90 tab Discontinued Atenolol 25 mg PO DAILY Felodipine [Felodipine ER] 5 mg PO QAM Pravastatin Sodium [Pravachol] 40 mg PO DAILY Aspirin EC [Ecotrin] 325 mg PO HS No Action metFORMIN HCL [Glucophage] 500 mg PO DAILY Lisinopril-Hctz 20-25 mg [Zestoretic 20-25] 1 tab PO DAILY Levothyroxine Sodium [Synthroid] 25 mcg PO DAILY Insulin NPH/Reg Insulin 70/30 [humuLIN 70/30 VIAL] 50 unit SQ QAM Insulin NPH Hum/Reg Insulin Hm [Novolin 70-30 100 Unit/ml Vial] 10 - 30 unit SQ W/SUPPER PRN PRN Reason: Blood Sugar - High Metoprolol Succinate [Toprol XL] 25 mg PO DAILY Acetaminophen [Tylenol Extra Strength] 1,000 mg PO Q8HR PRN PRN Reason: Mild To Moderate Pain Ibuprofen [Motrin] 400 mg PO Q8HR PRN PRN Reason: Pain Gabapentin 600 mg PO HS Gabapentin [Neurontin] 300 mg PO QAM Tamsulosin HCl [Flomax] 0.8 mg PO DAILY Discharge Medication List Insulin NPH/Reg Insulin 70/30 [humuLIN 70/30 VIAL] 50 unit SQ QAM 10/23/15 [History] Levothyroxine Sodium [Synthroid] 25 mcg PO DAILY 10/23/15 [History] Lisinopril-Hctz 20-25 mg [Zestoretic 20-25] 1 tab PO DAILY 10/23/15 [History] metFORMIN HCL [Glucophage] 500 mg PO DAILY 10/23/15 [History] Insulin NPH Hum/Reg Insulin Hm [Novolin 70-30 100 Unit/ml Vial] 10 - 30 unit SQ W/SUPPER PRN 11/30/18 [History] Metoprolol Succinate [Toprol XL] 25 mg PO DAILY 11/30/18 [History] Acetaminophen [Tylenol Extra Strength] 1,000 mg PO Q8HR PRN 12/01/18 [History] Gabapentin 600 mg PO HS 12/21/18 [History] Gabapentin [Neurontin] 300 mg PO QAM 12/21/18 [History] Ibuprofen [Motrin] 400 mg PO Q8HR PRN 12/21/18 [History] Tamsulosin HCl [Flomax] 0.8 mg PO DAILY 12/23/18 [History] Amiodarone [Cordarone] 200 mg PO BID #180 tab 12/26/18 [Rx] Apixaban [Eliquis] 5 mg PO BID #180 tab 12/26/18 [Rx] Atorvastatin [Lipitor] 40 mg PO HS #90 tablet 12/26/18 [Rx] Clopidogrel Bisulfate [Plavix] 75 mg PO DAILY #90 tab 12/26/18 [Rx] amLODIPine [Norvasc] 10 mg PO DAILY #90 tablet 12/26/18 [Rx] Follow up Appointment(s)/Referral(s): Cari North DO [STAFF PHYSICIAN] - 12/30/18 10:15 am Janie Connelly MD [STAFF PHYSICIAN] - 01/01/19 1:15 pm Haile Souza MD [Primary Care Provider] - 1 Week Patient Instructions/Handouts: *Surgery [facility] - After Heart Catheterization - Service Observer Chief Instructions, Peripheral Vascular Angioplasty (DC)
[2018-12-26 12:57] VITALS: BP 142/83; PULSE 60; TEMP 97.3
--- NOTE | 2018-12-26 14:20 | P.PN ---
Subjective Progress Note Date: 12/26/18 This is a pleasant 73-year-old male patient of Dr. Haile Souza and Dr. Connelly past medical history significant for diabetes mellitus, hypertension, dyslipidemia, peripheral vascular disease with chronic ulceration to the left ankle under the care [facility], obstructive sleep apnea and morbid obesity. Patient was brought into [facility] for elective left lower extremity atherectomy of the superficial femoral and popiteal artery with balloon angioplasty with Dr. North. Angio-seal was used on the right groin access site. The patient was found by recovery nurse that he was in atrial fibrillation which was a new onset for him. Cardiology was consult and he was started on amiodarone and heparin drips. Patient had troponins obtained which were elevated and he was ruled in for non- ST elevated myocardial infarction. He has undergone heart catheterization that showed blockages with plans for PTCA for tomorrow but most likely on Friday after fluid hydration to improve renal function. Echocardiogram limited study revealed EF of 55-60%. At the time of this evaluation, patient denies having any history of myocardial infarction. He states he had a stress test done about 1-2 months ago which he reports as normal. He denies any shortness of breath with ambulation. His last hemoglobin A1c in November was 7.6. Patient is on 7030 insulin but unfortunately did not receive last evening's dose nor this morning's dose as ordered and blood sugars are elevated in the high 200s. Patient denies any chest pain at this time. Discussed with patient that we will plan for 70/30 insulin tonight at 10 units which is a reduced dose to be given at supper and patient will receive NPH at 20 units in the morning. Patient has been started on NovoLog scale before meals and at bedtime as well. 12/24: Blood sugars are running high again today as patient received a lower dose of insulin 7 is not nothing by mouth today. We will plan to increase NPH to 25 units for tomorrow morning and 70/30 will be increased 15 units at supper. Continue NovoLog scale. Patient is scheduled for PTCA/stent tomorrow. Renal function is significantly improved with BUN 30, creatinine 1.18, potassium 4.4. 12/25: Patient has been afebrile, heart rate 71, blood pressure 188/79, pulse ox 90% on room air. Blood sugars are running between 176 and 194. Hemoglobin 11.2, BUN 30 and creatinine 1.14, potassium 4.3. Heart catheterization had revealed a total occlusion of the circumflex. Moderate disease in the ostium of the diagonal. Critical lesion involving the ostium in the proximal portion of the RCA. Heart catheterization was performed on December [address] Connelly. Today, patient underwent successful stenting of the ostial right coronary artery with reduction of stenosis from 80% to [address] Drummond. The patient is seen in the postop period and denies any chest pain or shortness of breath. He is complaining of difficulty sleeping for which melatonin has been added. Anticipate probable discharge tomorrow. 12/26: Patient is doing much radiating denies any chest pain, shortness breath, he has no abdominal pain, he seems to be tolerating his treatment very well, he is ready to the shower, appears medically stable for discharge if okay with cardiology and vascular. Objective - Vital Signs Vital signs: Vital Signs Temp 98.4 F 12/26/18 04:00 Pulse 65 12/26/18 04:00 Resp 18 12/26/18 04:00 BP 147/66 12/26/18 04:00 Pulse Ox 95 12/26/18 04:00 Intake & Output 12/25/18 12/26/18 12/26/18 18:59 06:59 18:59 Intake Total 630 Output Total 1000 1100 Balance -370 -1100 Weight 137.4 kg 137 kg Intake: IV 150 Oral 480 Output: Urine 1000 1100 Other: Voiding Method Urinal Urinal # Voids 1 - Exam - Exam Review of Systems Constitutional: Denies chills, Denies fatigue, Denies fever, Denies poor appetite, Denies weight loss Eyes: denies blurred vision, denies pain Ears, nose, mouth and throat: Denies headache, Denies sore throat, Denies vertigo Cardiovascular: Denies chest pain, Denies decreased exercise tolerance, Denies dyspnea on exertion, Denies leg edema, Denies lightheadedness, Denies palp itations, Denies shortness of breath, Denies syncope Respiratory: Denies cough, Denies cough with sputum, Denies dyspnea, Denies excessive sputum, Denies hemoptysis, Denies home oxygen, Denies wheezing Gastrointestinal: Denies abdominal pain, Denies diarrhea, Denies loss of appetite, Denies nausea, Denies vomiting Genitourinary: Denies dysuria, Denies urinary retention Musculoskeletal: Denies frequent falls, Denies gait dysfunction, Denies muscle weakness, Denies myalgias Integumentary: Denies pruritus, Denies rash, Denies wounds Neurological: Denies numbness, Denies vertigo, Denies weakness Psychiatric: Denies anxiety, Denies depression Endocrine: Denies fatigue, Denies weight change, reports elevated blood sugar Gen: This is a 73-year-old male. Patient appears to be comfortable and in no acute distress. Patient's is at bedside. HEENT: Head is atraumatic, normocephalic. Pupils equal, round. Sclerae is anicteric. NECK: Supple. No JVD. No lymphadenopathy. No thyromegaly. LUNGS: Clear to auscultation. No wheezes or rhonchi. No intercostal retractions. HEART: Irregular rate and rhythm. Systolic murmur. ABDOMEN: Soft. Bowel sounds are present. No masses. No tenderness. EXTREMITIES: No pedal edema. No calf tenderness. Dorsalis pedis is +2 bilaterally. Chronic ulceration to the left lower extremitypresent on admission NEUROLOGICAL: Patient is awake, alert and oriented x3. Cranial nerves 2 through 12 are grossly intact. - Labs CBC & Chem 7: 12/25/18 07:28 12/26/18 05:54 Labs: Abnormal Lab Results - Last 24 Hours (Table) 12/25/18 12/25/18 12/25/18 Range/Units 07:28 07:28 07:28 RBC 3.46 L (4.30-5.90) m/uL Hgb 11.2 L (13.0-17.5) gm/dL Hct 34.7 L (39.0-53.0) % MCV 100.2 H (80.0-100.0) fL APTT 38.0 H (22.0-30.0) sec Chloride 108 H (98-107) mmol/L BUN 30 H (9-20) mg/dL Glucose 176 H (74-99) mg/dL POC Glucose (mg/dL) (75-99) mg/dL 12/25/18 12/25/18 12/25/18 Range/Units 12:50 17:03 20:21 RBC (4.30-5.90) m/uL Hgb (13.0-17.5) gm/dL Hct (39.0-53.0) % MCV (80.0-100.0) fL APTT (22.0-30.0) sec Chloride (98-107) mmol/L BUN (9-20) mg/dL Glucose (74-99) mg/dL POC Glucose (mg/dL) 196 H 174 H 183 H (75-99) mg/dL 12/26/18 Range/Units 06:11 RBC (4.30-5.90) m/uL Hgb (13.0-17.5) gm/dL Hct (39.0-53.0) % MCV (80.0-100.0) fL APTT (22.0-30.0) sec Chloride (98-107) mmol/L BUN (9-20) mg/dL Glucose (74-99) mg/dL POC Glucose (mg/dL) 119 H (75-99) mg/dL Assessment and Plan Assessment: Assessment and Plan Plan: 1. New onset of atrial fibrillation, paroxysmal atrial fibrillation. Cardiology on consult. Amiodarone drip has been discontinued. Continue amiodarone 200 mg twice daily, Lopressor 25 mg twice daily and eliquis 5 mg twice daily. 2. Non-ST elevated myocardial infarction. Status post heart catheterization and stenting of the ostial right coronary artery. Continue Plavix 75 mg daily, Lopressor 25 mg twice daily, atorvastatin 40 mg daily. 3. Femoral-popliteal occlusive disease, peripheral artery disease status post left fem-pop atherectomy and balloon angioplasty. Continue Plavix 75 mg daily, atorvastatin. 4. Chronic nonhealing peripheral vascular disease ulcer to the left lower extremity, present on admission. Wound consult appreciated. Continue local wound care with collagen and hydrogel, wrap with rolled gauze and secured with Tubigrip. Patient to follow up with Dr. Fernandes at the time of discharge. 5. Hypertension. Continue amlodipine increased to 10 mg daily, Zestoretic 1 daily. 6. Diabetes mellitus type 2, insulin requiring. Insulin has been adjusted to NovoLog 70/30 15 units before supper today, NPH 25 units in the morning. Patient may resume home insulins at discharge. Metformin on hold. 7. Hyperlipidemia. Continue statin. 8. Hypothyroidism. Continue levothyroxine 25 mg daily. 9. Diabetic neuropathy. Continue gabapentin 300 mg morning and 600 mg at bedtime. 10. Gastroesophageal reflux disease. Pepcid. 11. DVT prophylaxis. 12. Medically stable for discharge if okay with cardiology and vascular.
== END 2018-12-26 14:24 | disposition home health service (06) | DRG 271 ==
LOC: CATHCVL 06:02 → 3SCARD 10:20 → CATHCVL 12:41 → OBSVTOIN 12-23 12:57
PROVIDERS: ADMIT Surgery; ATTEND Surgery
PROC: 047L34Z Dilation of Left Femoral Artery with Drug-eluting Intraluminal Device, Percutaneous Approach (ICD-10-PCS; 2018-12-22)
PROC: 047N3Z1 Dilation of Left Popliteal Artery using Drug-Coated Balloon, Percutaneous Approach (ICD-10-PCS; 2018-12-22)
PROC: 04CN3ZZ Extirpation of Matter from Left Popliteal Artery, Percutaneous Approach (ICD-10-PCS; 2018-12-22)
PROC: 04CL3ZZ Extirpation of Matter from Left Femoral Artery, Percutaneous Approach (ICD-10-PCS; principal; 2018-12-22 07:30)
PROC: 027034Z Dilation of Coronary Artery, One Artery with Drug-eluting Intraluminal Device, Percutaneous Approach (ICD-10-PCS; 2018-12-25)
PROC: 4A023N7 Measurement of Cardiac Sampling and Pressure, Left Heart, Percutaneous Approach (ICD-10-PCS; 2018-12-25)
PROC: B2111ZZ Fluoroscopy of Multiple Coronary Arteries using Low Osmolar Contrast (ICD-10-PCS; 2018-12-25)
DX: I21.4 Non-ST elevation (NSTEMI) myocardial infarction (principal); L97.322 Non-pressure chronic ulcer of left ankle with fat layer exposed; E11.51 Type 2 diabetes mellitus with diabetic peripheral angiopathy without gangrene; E11.42 Type 2 diabetes mellitus with diabetic polyneuropathy; E66.01 Morbid (severe) obesity due to excess calories; I48.0 Paroxysmal atrial fibrillation; I70.212 Atherosclerosis of native arteries of extremities with intermittent claudication, left leg; E78.5 Hyperlipidemia, unspecified; G47.33 Obstructive sleep apnea (adult) (pediatric); I10 Essential (primary) hypertension; I25.10 Atherosclerotic heart disease of native coronary artery without angina pectoris; I44.0 Atrioventricular block, first degree; N28.9 Disorder of kidney and ureter, unspecified; I83.90 Asymptomatic varicose veins of unspecified lower extremity; M19.90 Unspecified osteoarthritis, unspecified site; R01.1 Cardiac murmur, unspecified; E03.9 Hypothyroidism, unspecified; K21.9 Gastro-esophageal reflux disease without esophagitis; Z79.4 Long term (current) use of insulin; Z79.82 Long term (current) use of aspirin; Z79.890 Hormone replacement therapy; Z79.899 Other long term (current) drug therapy; Z98.84 Bariatric surgery status; Z87.891 Personal history of nicotine dependence; Z96.642 Presence of left artificial hip joint; Z96.653 Presence of artificial knee joint, bilateral; Z89.022 Acquired absence of left finger(s); Z98.42 Cataract extraction status, left eye; Z98.41 Cataract extraction status, right eye; Z96.1 Presence of intraocular lens; Z88.6 Allergy status to analgesic agent; Z82.0 Family history of epilepsy and other diseases of the nervous system; Z82.49 Family history of ischemic heart disease and other diseases of the circulatory system
CPT/HCPCS: 37227; 71045; 80048; 80053; 82565; 83735; 83880; 84439; 84443; 84484; 85025; 85347; 85610; 85730; 86850; 86900; 86901; 93005; 93308; 93454; C1874

== ENCOUNTER → 2019-01-18 | Outpatient (CLI) | payer MEDICARE ==
[2019-01-18 14:32] VITALS: PULSE 69; TEMP 97.7; BMI 45.0
[2019-01-18 14:33] VITALS: BP 136/64
--- NOTE | 2019-03-28 13:02 | P.HPBAR ---
Bariatric H&P - History & Physicial H&P Date: 01/18/19 History & Physicial: Visit/CC: requesting band fill Patient initial contact: Initial weight: 127.204 kg Initial weight in pounds: 280.44 Height: 5 ft 9 in Initial BMI: 41.4 Last weight: Current weight: 138.346 kg Current weight in pounds: 305.00 Current BMI: 45.0 [place] body weight (based on NIH guidelines): 72.575 kg Excess body weight loss: The patient is a 74 year-old M who presents for Bariatric Assessment. Patient requesting a fill of his LAP-BAND. He currently is hungry. Past Medical History Past Medical History: Diabetes Mellitus, Hyperlipidemia, Hypertension, Osteoarthritis (OA), Sleep Apnea/CPAP/BIPAP, Thyroid Disorder Additional Past Medical History / Comment(s): varicose veins, poor circulation in maren legs, occ edema of maren ankles, c-diff 2012, has open sore on left ankle(on antibiotics) History of Any Multi-Drug Resistant Organisms: None Reported, C-DIFF Year Discovered:: 2012 MDRO Source:: SECONDARY TO ABX FROM KNEE SURGERY Past Surgical History: Bariatric Surgery, Heart Catheterization With Stent, Orthopedic Surgery Additional Past Surgical History / Comment(s): BILATERAL KNEE REPLACEMENTS, LEFT SHOULDER TIGHTENED LIGAMENTS/ROTATOR CUFF, LAP BAND 2011, FINGER TRAUMA LED TO AMPUTATION of left index finger, left hip replacement, maren cataracts, Left leg stent placed to improve circulation (December) Past Anesthesia/Blood Transfusion Reactions: No Reported Reaction Date of Last Stent Placement:: dec 2018 ([facility]) Smoking Status: Former smoker - Past Family History Mother Family Medical History: Dementia Additional Family Medical History / Comment(s): ALZHEIMERS, OF NORMAL CAUSES AT AGE 89 Father Family Medical History: Coronary Artery Disease (CAD), Hypertension Additional Family Medical History / Comment(s): AT AGE 87 from myocardial infarction. Sister(s) Family Medical History: Cancer Additional Family Medical History / Comment(s): Patient has 3 sisters and one has history of lung cancer. Daughter(s) Additional Family Medical History / Comment(s): Patient has 1 son and 1 daughter with no major medical problems. Surgical - Exam Vital Signs Temp Pulse BP 97.7 F 69 196/78 01/18/19 14:12 01/18/19 14:12 01/18/19 14:12 - General well developed, well nourished, no distress - Eyes PERRL - Abdomen Abdomen: soft, non tender Bariatric Assessment & Plan Plan: Patient LAP-BAND was just. 0.5 mL added to the band. He currently is 4.25 in the band. He will follow-up in 4 weeks. Bariatric Checklist Checklist: Plan: Checklist: EGD: 1. Hiatal hernia: 2. H. Pylori: HgbA1c: Vitamin D: Smoking: Former smoker Primary care physician referral: Dr. Dash Souza Psychiatry clearance: Cardiology clearance: Sleep study: Diet journal: VTE risk score: VTE risk level: Rehab needs at discharge:
== END | disposition home or self-care (01) ==
LOC: BARWHC3 14:00
PROVIDERS: ATTEND Surgery
DX: Z46.51 Encounter for fitting and adjustment of gastric lap band (principal); Z87.891 Personal history of nicotine dependence; Z98.84 Bariatric surgery status
CPT/HCPCS: 99212

== ENCOUNTER → 2020-01-07 | Outpatient (CLI) | payer MEDICARE ==
[2020-01-07 11:57] LABS: Basophils % (A) 0 %; Calcium 9.1 mg/dL (8.4-10.2); Eosinophils # (A) 0.2 k/uL (0-0.7); Eosinophils % (A) 3 %; HCT 36.6 % (39.0-53.0); HGB 11.5 gm/dL (13.0-17.5); Hypochromasia Slight; Lymphocytes # (A) 0.8 k/uL (1.0-4.8); Lymphocytes % (A) 13 %; MCH 32.1 pg (25.0-35.0); MCHC 31.5 g/dL (31.0-37.0); MCV 101.8 fL (80.0-100.0); Macrocytosis Slight; Mean Platelet Volume 7.3; Monocytes # (A) 0.3 k/uL (0-1.0); Monocytes % (A) 5 %; Neutrophils # (A) 5.1 k/uL (1.3-7.7); Neutrophils % (A) 77 %; Platelet Count 207 k/uL (150-450); Potassium 4.9 mmol/L (3.5-5.1); Total Bilirubin 0.6 mg/dL (0.2-1.3); Total Protein 7.3 g/dL (6.3-8.2); WBC 6.6 k/uL (3.8-10.6)
[2020-01-07 11:58] LABS: Partial Thromboplastin Time 25.4 sec (22.0-30.0); Prothrombin Time 10.5 sec (9.0-12.0)
[2020-01-07 12:54] LABS: Appearance,Urine Clear (Clear); Bilirubin,Urine Negative (Negative); Blood,Urine Trace (Negative); Color,Urine Yellow; Glucose,Urine (UA) Negative (Negative); Hyaline Casts,Urine 6 /lpf (0-2); Ketones,Urine Negative (Negative); Leukocyte Esterase,Urine Negative (Negative); Mucus,Urine Rare /hpf; Nitrite,Urine Negative (Negative); Protein,Urine Negative (Negative); RBC,Urine 53 /hpf (0-5); Specific Gravity,Urine 1.028 (1.001-1.035); Squamous Epithelial Cell,Urine <1 /hpf (0-4); Urobilinogen,Urine <2.0 mg/dL (<2.0); WBC,Urine 1 /hpf (0-5)
--- NOTE | 2020-01-07 13:07 | XR ---
EXAMINATION TYPE: XR chest 2V DATE OF EXAM: 01/07/2020 COMPARISON: Prior chest x-ray 12/22/2018 HISTORY: Z01.818 TECHNIQUE: Frontal and lateral views of the chest are obtained on 3 images. FINDINGS: There is no focal air space opacity, pleural effusion, or pneumothorax seen. The cardiac silhouette size is within normal limits. The aorta is dense. The osseous structures are intact. IMPRESSION: No acute cardiopulmonary process.
== END | disposition home or self-care (01) ==
LOC: LABPAT 09:47
PROVIDERS: ATTEND Orthopaedic Surgery Orthopaedic Surgery of the Spine
DX: Z01.818 Encounter for other preprocedural examination (principal); M48.00 Spinal stenosis, site unspecified; Z01.812 Encounter for preprocedural laboratory examination
CPT/HCPCS: 36415; 71046; 80053; 81001; 85025; 85610; 85730; 86850; 86900; 86901; 87070; 93005

== ENCOUNTER 2020-01-19 06:13 | Inpatient (IN) | payer MEDICARE ==
[2020-01-17 14:39] VITALS: BMI 38.0
[~2020-01-19 06:13] MED LIST changes: +DEXAMETHASONE SOD PHOSPHATE 4 MG/ML 1 ML VIAL IV ONE; +LIDOCAINE 1% (10MG/ML) FOR IV START INTRADERMA PRN; +ONDANSETRON 4 MG/2 ML VIAL IVP ONE; -SODIUM CHLORIDE 0.9% 1,000 ML in EMPTY BAG 1 BAG IV ONE; +ceFAZolin 1,000 MG in SODIUM CHLORIDE 0.9% IRRIGATIO 1,000 ML IRRIGATION ONE; +ceFAZolin 3 GM in SODIUM CHLORIDE 0.9% 100 ML IVPB ONE
[2020-01-19 07:17] LABS: Glucose,Whole Blood 141 mg/dL (75-99)
[2020-01-19] MEDS: LACTATED RINGERS 1,000 ML IV SCH ×2 (07:23→16:23)
[2020-01-19] MEDS ORDERED: PHENYLEPHRINE-0.9% NACL SYG 1 MG/10 ML SYRINGE ONE (07:33)
[2020-01-19] MEDS ORDERED: MIDAZOLAM 2 MG/2 ML VIAL ONE (07:33)
[2020-01-19] MEDS ORDERED: fentaNYL (PF) 50 MCG/ML 2 ML AMP ONE (07:33)
[2020-01-19] MEDS ORDERED: LIDOCAINE 1% INJ 10MG/ML (20 ML MDV) ONE (07:33)
[2020-01-19] MEDS ORDERED: GLYCOPYRROLATE 0.2 MG/ML 2 ML VIAL ONE (07:33)
[2020-01-19] MEDS ORDERED: ePHEDrine SULFATE/0.9% NACL/PF 50 MG/5 ML SYRINGE IV ONE (07:33)
[2020-01-19] MEDS ORDERED: ROCURONIUM 10 MG/ML (10 ML VIAL) IV ONE (07:33)
[2020-01-19] MEDS ORDERED: SUCCINYLCHOLINE CHLORIDE VIAL 200 MG/10 ML VIAL IV ONE (07:33)
[2020-01-19] MEDS ORDERED: PROPOFOL 10 MG/ML 20 ML VIAL IV ONE (07:33)
[2020-01-19] MEDS ORDERED: ONDANSETRON 4 MG/2 ML VIAL ONE (07:33)
[2020-01-19] MEDS ORDERED: NEOSTIGMINE 1 MG/ML 10 ML VIAL ONE (07:33)
[2020-01-19] MEDS ORDERED: LIDOCAINE 0.5%-EPI 1:200,000 50 ML VIAL SQ ONE (07:38)
[2020-01-19] MEDS ORDERED: THROMBIN (BOVINE) 5,000 UNIT VIAL TOPICAL ONE (07:38)
[2020-01-19] MEDS ORDERED: GELATIN SPONGE,ABSORB (LARGE) 1 EACH SPONGE TOPICAL ONE (07:38)
[2020-01-19] MEDS ORDERED: LACTATED RINGERS 1,000 ML IV ONE (10:05)
--- NOTE | 2020-01-19 11:55 | FL ---
Fluoroscopy HISTORY: Lumbar fusion 20 seconds fluoroscopy time supplied to the referring clinician. 2 intraoperative C-arm images docum ent the procedure. See dictated report from orthopedic surgery.
--- NOTE | 2020-01-19 11:56 | XR ---
Limited lumbar spine HISTORY: Lumbar fusion 2 intraoperative C-arm images document the procedure
[2020-01-19] MEDS ORDERED: HYDROmorphone 0.5 MG/0.5 ML SYRINGE IVP PRN (12:08)
[2020-01-19] MEDS ORDERED: MAGNESIUM HYDROXIDE 2,400 MG/10 ML CUP PO PRN (12:08)
[2020-01-19] MEDS ORDERED: BENZOCAINE/MENTHOL LOZENG 1 EACH LOZENGE MUCOUS MEM PRN (12:08)
[2020-01-19] MEDS ORDERED: HYDROcodone/APAP 5-325MG 1 EACH TAB PO PRN (12:09)
[2020-01-19] MEDS ORDERED: ONDANSETRON 4 MG/2 ML VIAL IVP PRN (12:09)
[2020-01-19] MEDS ORDERED: ACETAMINOPHEN TAB 500 MG TAB PO PRN (12:14)
--- NOTE | 2020-01-19 12:21 | P.OP ---
Date of Procedure: 01/19/20 Preoperative Diagnosis: Severe spinal stenosis L2-3 L3 4, spondylolisthesis L3 4, secondary to degenerative disc disease L2-L3 L3 4, lower extremity radiculopathy, neurogenic claudication, , obesity Postoperative Diagnosis: Same Anesthesia: GETA Pathology: none sent Condition: stable Disposition: PACU Description of Procedure: DESCRIPTION OF PROCEDURE(S): BRIEF OPERATIVE NOTE Preoperative Diagnosis: Severe spinal stenosis L2-3 L3 4, spondylolisthesis L3 4, secondary to degenerative disc disease L2-L3 L3 4, lower extremity radiculopathy, neurogenic claudication, , obesity Postoperative Diagnosis: Same Procedure: Laminectomy and decompression L2-[address] navigation aided Minimally invasive Posterior lateral decompression and facet fusion L2-3 L3 4 Minimally invasive Transforaminal lumbar interbody fusion for a 360 fusion L2-3 L3 4 Discectomy for decompression L2-3 L3 4 Placement of interbody graft L2-3 L3 4 Use of computer navigation for fusion Local autogenous bone grafting Aspiration of bone marrow from the vertebral body pedicle L2 on the right Use of bone graft extenders Increased difficulty and time for the surgery due to patient's large body habitus Surgeon: Dr. Mckeon Piano Mechanic: Marquez MARCELINO who is present throughout the entire the case persistence during positioning, dissection, exposure, visualization, and all crucial elements of the case as well as closure. Anesthesia: General anesthesia per Dr. Olsen Estimated blood loss: Approximately 400 mL, with 120 mL given back through Cell [employer] Complications: None apparent Components implanted: K2M minimally invasive [place] pedicle screw system withscrews measuring 6.5 mm in diameter to rods one Randolph interbody cage with 10 mL of osteo amp bio4 bone graft substitute and 30 mL of the BX bone fibers to supplement the local autogenous bone graft and bone marrow aspirate Disposition: To recovery room in good stable condition. OPERATIVE INDICATIONS The patient has had severe issues at their lower extremity in her lower back over the past several years with significant worsening over the past several months. Over the past few months the patient had pain at her back and his bilateral lower extremity. The patient is having severe radicular symptoms at his bilateral lower extremity with weakness. He is having evidence of neurogenic claudication and having significant worsening of his ability to mobilize. He is having debility due to his lumbar spine with correlates well with his severe spinal stenosis degenerative changes at his lumbar spine. The patient is having significant pain in his back. They are unable to obtain any comfort. We did aggressive conservative treatment with medications therapy and interventional pain management however she was not having any relief. Patient has severe spinal stenosis L2-3 L3 4. The patient also showed evidence of a listhesis with some dynamic instability. The patient has been through conservative treatment. We discussed various treatment options including surgery, and the patient wishes to proceed with surgery We discussed the risk, patient's alternatives and benefits of surgery including but not limited to, risk of bleeding risk of infection, risk of need for further surgery, risk of decreased, loss of motion, muscle function, malunion nonunion, hardware failure, nerve damage, paralysis, heart attack, blindness and . They understood issues with the current pandemic and the possibility of exposure. OPERATIVE SUMMARY After discussing all the risks, patient alternatives and benefits at length, the patient elected to proceed with surgical intervention, signed informed consent, and presented for their procedure. The patient was seen and examined in the preoperative holding area and the surgical site was marked. The patient was given antibiotics and brought to the operating room. The patient was sedated and intubated by anesthesia in standard fashion. The patient was positioned on to the operating room table in a prone position on the appropriate frame which was well-padded and well molded. We were careful to pad any bony prominences and pressure points. We were careful to maintain the patient's cervical spine and good neutral alignment and position throughout. The patient was prepped and draped in a normal standard fashion. An appropriate timeout and keystone protocol performed. We were able to proceed with the surgery. The local wound area was infiltrated with local anesthetic. Over the right iliac crest I was able to make small stab incisions and establish a guidepin screw fixation to the iliac crest 2. I was able place the computer referencing device over the guidepins to establish an appropriate reference point for the Ziem CT navigation. We then were able to place patient in an ap propriate drape and do a navigation spin for visualization and 3-D reconstruction of the lumbar spine. I was able utilize C-arm guidance and navigation to establish appropriate position over the pedicles bilaterally at the appropriate levels at L2-3 and 4 . With the appropriate levels confirmed was able to make small stab incisions over the appropriate pedicle sites bilaterally. Utilizing the computer navigation device I was able to establish bony landmarks at the right iliac crest for a bony reference point for the navigation device. I was able to establish a Jamshidi needle over the lateral aspect of the pedicle and advanced the trocar into the pedicle being careful not to breech superiorly inferiorly medially or laterally using computer navigation device. Position was confirmed regularly with AP and lateral images on C-arm and with the computer navigation device at the appropriate levels bilaterally. I was able to establish the trocar into the pedicle appropriately into the po sterior aspect of the vertebral body bilaterally at the appropriate levels. This was done at each of the pedicle positions and each of the vertebrae. At the superior vertebrae I was able to take approximately 25 mL of bone aspiration for use later in the case to supplement the allograft and autograft bone. I was able place the guidewire into the trocar and into the vertebral body appropriately under C-arm guidance. Dissection was taken down over the wire to the appropriate starting position for the screw placed. The appropriate length screw was chosen, threaded over the guidewire and screwed appropriately into the pedicle and vertebral body under C-arm guidance in excellent alignment and position with good bony purchase. This is done at each of the screw sites at the appropriate levels at L2-3 and 4. With the screws intact I extended the incision to connect the screw hole sites on the most symptomatic side on the left. I dissected down to establish access over the pars and lamina to the base of the spinous process. I was able to expose the facet joint. The capsule the facet was taken down and showed some facet arthrosis at the joint. I was able to use a combination of curettes and Kerrison rongeurs and a high-speed drill to take down the facet joint and do a facetectomy. I was able get excellent foraminal decompression and central decompression with undermining across midline to perform a laminectomy centrally and contralaterally. The patient was found have severe central and bilateral foraminal stenosis which was remedied with decompression. I was able get good central decompression. The ligamentum flavum was taken down to further decompress centrally and at bilateral neural foramen. I was able to expose the disc space and visualize the traversing nerve root. Note was made of some disc protrusion and disc herniation that was abutting the traversing nerve root at the level causing further compression of the nerve root. I was able to establish a annulotomy at the appropriate level starting at L3 4 and then moving to to 3 protecting soft tissue and neural structures. Note was made of some severe disc desiccation at the disc. I performed a complete discectomy with accommodation of curettes and rasps and scrapers. I was able get good endplate preparation at the disc space. I sized for the appropriate size interbody spacer protecting the soft tissue and neural structures. The wound was copiously irrigated and suctioned dry. There is no evidence of any dural tear or leak. I was able to pack the disc space with local autogenous bone graft as well as a small amount of bone graft which was also placed into the interbody cage itself. Protecting the soft tissue structures and neural structures I was able place the interbody cage in good alignment and good position with good fit and fill at the interbody space. Position was confirmed with C-arm guidance. Good hemostasis maintained. There is no evidence of any dural tear or leak. The wound was irrigated and suctioned dry. With the hardware intact, intraoperative C-arm imaging was again taken which showed good alignment and position of the hardware at the appropriate levels at L2-3 and L3 4. We were then able to measure, contour and place the rods and appropriate hardware bilaterally. I was able to place capcrews, tighten them down, and torque them with the torque screwdriver appropriately. With this intact I was able to place the local autogenous bone graft with additional bone graft enhancer as necessary into the posterior lateral gutters over the decorticated transverse processes and facet joints on the contralateral side. The remainder of the bone graft was placed over the facet joint on the contralateral side after taking down the facet joint capsule. With the bone graft intact, a stable construct, and good decompression at the appropriate levels, we were able to proceed with closure. Good hemostasis was maintained. There is no evidence of dural tear or leak. The fascia was closed for a watertight closure. he subcuticular tissue was closed with absorbable suture. The wound was cleaned and dried and dressed with the appropriate dressing. The drapes were broken down. The patient was gently rolled back onto their hospital bed being careful to maintain their cervical spine and good neutral alignment and position. They were woken up by anesthesia, extubated, and brought to the recovery room in good stable condition. The patient will be admitted to the hospital for appropriate postoperative care, medical management and monitoring. We will continue to follow them closely about the postoperative course.
[2020-01-19 12:29] LABS: Glucose,Whole Blood 155 mg/dL (75-99)
[2020-01-19] MEDS ORDERED: HYDROmorphone 0.5 MG/0.5 ML SYRINGE IVP ONE ×2 (12:29→12:35)
[2020-01-19] MEDS: SODIUM CHLORIDE 0.9% 1,000 ML IV SCH (14:36)
[2020-01-19] MEDS ORDERED: SODIUM CHLORIDE 0.9% 1,000 ML IV ONE (15:00)
[2020-01-19 15:18] LABS: Glucose,Whole Blood 217 mg/dL (75-99)
--- NOTE | 2020-01-19 15:47 | P.PN ---
Progress Note - Text Progress Note Date: 01/19/20 I spoke with the nurse regarding the patient. He has had some hypotension to the 80s over 40s and some lethargy. Medicine has been notified. It started him on a bolus. I also ordered EKG and would like to have him transferred to [facility] for closer monitoring. We will further notified medicine service.
[2020-01-19 16:13] LABS: Basophils % (A) 0 %; Eosinophils % (A) 1 %; HCT 34.2 % (39.0-53.0); HGB 10.8 gm/dL (13.0-17.5); Hypochromasia Moderate; Lymphocytes # (A) 0.5 k/uL (1.0-4.8); Lymphocytes % (A) 8 %; MCHC 31.6 g/dL (31.0-37.0); MCV 104.2 fL (80.0-100.0); Macrocytosis Slight; Mean Platelet Volume 7.6; Monocytes # (A) 0.3 k/uL (0-1.0); Monocytes % (A) 5 %; Neutrophils # (A) 5.8 k/uL (1.3-7.7); Neutrophils % (A) 86 %; Platelet Count 170 k/uL (150-450); RBC 3.28 m/uL (4.30-5.90); RDW 12.8 % (11.5-15.5); WBC 6.8 k/uL (3.8-10.6)
[2020-01-19] MEDS: GABAPENTIN 300 MG CAP PO SCH ×2 (16:23→20:34)
[2020-01-19 16:27] LABS: African American GFR (CKD) 39 (>60 ml/min/1.73 sqM); Anion Gap 8 mmol/L; Blood Urea Nitrogen 38 mg/dL (9-20); Calcium 8.4 mg/dL (8.4-10.2); Carbon Dioxide 21 mmol/L (22-30); Chloride 109 mmol/L (98-107); Glucose 204 mg/dL (74-99); Non-African American GFR(CKD) 33 (>60 ml/min/1.73 sqM); Potassium 5.6 mmol/L (3.5-5.1); Sodium 138 mmol/L (137-145)
[2020-01-19] MEDS: ceFAZolin 3 GM in SODIUM CHLORIDE 0.9% 100 ML IVPB SCH ×2 (16:44→23:08)
[2020-01-19 16:49] LABS: Glucose,Whole Blood 243 mg/dL (75-99)
[2020-01-19] MEDS: AMIODARONE 200 MG TAB PO SCH (17:25)
[2020-01-19] MEDS: INSULIN ASPART (NovoLOG) 100 UNIT/ML VIAL SQ SCH ×2 (17:29→20:35)
--- NOTE | 2020-01-19 18:11 | P.CONS ---
History of Present Illness - Reason for Consult Consult date: 01/19/20 - History of Present Illness This is a 74-year-old male, patient of Dr. Haile Souza and Dr. Connelly past medical history significant for diabetes mellitus, hypertension, dyslipidemia, peripheral vascular disease, coronary artery disease with stenting, proximal atrial fibrillation, obstructive sleep apnea, and morbid obesity. Patient had laminectomy and decompression L2-L3 and L3-L4 today with Dr. Mckeon, postoperatively developed hypotension and lethargy patient was admitted to fifth floor awaiting transfer to [facility] at this time. Nurse reported an a team was called on the patient for hypotension, blood pressure in the 60s systolic, did receive 1 L of fluid with improvement of blood pressures to 90 systolic. Patient still remains drowsy, awakens easily and answers questions did fall back asleep while talking. We'll be cautious with pain medications at this time and hold BP agents until tomorrow will reassess. Hemoglobin was 10.8, BUNs 38 creatinine 1.9, potassium 5.6, CO2 21. Patient denies previous history of kidney disease last found creatinine from 12/2018 was 1.1. Likely related to dehydration, monitor urine output closely, will continue with hydrating and repeat labs in a.m. Patient was on 6 L nasal cannula, was able down to wean down to 3 L nasal cannula with pulse ox 97%. Patient was going to call his to bring BiPAP from home. quality assurance monitor final was being placed at this time. Review of Systems Constitutional: Denies chills, Denies fatigue, Denies fever, Denies poor appetite, Denies weight loss Eyes: denies blurred vision, denies pain Ears, nose, mouth and throat: Denies headache, Denies sore throat, Denies vertigo Cardiovascular: Denies chest pain, Denies decreased exercise tolerance, Denies dyspnea on exertion, Denies edema, Denies leg edema, Denies lightheadedness, Denies palpitations, Denies shortness of breath, Denies syncope Respiratory: Denies cough, Denies cough with sputum, Denies dyspnea, Denies excessive sputum, Denies hemoptysis, Denies home oxygen, Denies wheezing Gastrointestinal: Denies abdominal pain, Denies diarrhea, Denies loss of appetite, Denies nausea, Denies vomiting Genitourinary: Denies dysuria, Denies urinary retention Musculoskeletal: Denies frequent falls, Denies gait dysfunction, Denies muscle weakness, Denies myalgias. Positive back pain Integumentary: Denies pruritus, Denies rash, Denies wounds Neurological: Denies numbness, Denies vertigo, Denies weakness Psychiatric: Denies anxiety, Denies depression Endocrine: Denies fatigue, Denies weight change Past Medical History Past Medical History: Atrial Fibrillation, Coronary Artery Disease (CAD), Diabetes Mellitus, Hyperlipidemia, Hypertension, Osteoarthritis (OA), Sleep Apnea/CPAP/BIPAP, Thyroid Disorder Additional Past Medical History / Comment(s): varicose veins, poor circulation in maren legs, occ edema of maren ankles, c-diff 2012, History of Any Multi-Drug Resistant Organisms: C-DIFF Year Discovered:: 2012 MDRO Source:: SECONDARY TO ABX FROM KNEE SURGERY Past Surgical History: Bariatric Surgery, Heart Catheterization With Stent, Joint Replacement, Orthopedic Surgery Additional Past Surgical History / Comment(s): BILATERAL KNEE REPLACEMENTS, LEFT SHOULDER TIGHTENED LIGAMENTS/ROTATOR CUFF, LAP BAND 2011, FINGER TRAUMA LED TO AMPUTATION of left index finger, left hip replacement, maren cataracts, Left leg stent placed to improve circulation (December) one heart stent Past Anesthesia/Blood Transfusion Reactions: No Reported Reaction Date of Last Stent Placement:: dec 2018 ([facility]) Past Psychological History: No Psychological Hx Reported Smoking Status: Former smoker Past Alcohol Use History: Rare Additional Past Alcohol Use History / Comment(s): Patient was a smoker and quit 45 1974 approx Past Drug Use History: None Reported - Past Family History Mother Family Medical History: Dementia Additional Family Medical History / Comment(s): ALZHEIMERS, OF NORMAL CA USES AT AGE 89 Father Family Medical History: Coronary Artery Disease (CAD), Hypertension Additional Family Medical History / Comment(s): AT AGE 87 from myocardial infarction. Sister(s) Family Medical History: Cancer Additional Family Medical History / Comment(s): Patient has 3 sisters and one has history of lung cancer. Daughter(s) Additional Family Medical History / Comment(s): Patient has 1 son alive and welland 1 daughter with Ovarian CA Medications and Allergies Home Medications Medication Instructions Recorded Confirmed Type Insulin NPH/Reg Insulin 70/30 25 unit SQ BID 10/23/15 01/19/20 History [humuLIN 70/30 VIAL] Levothyroxine Sodium [Synthroid] 25 mcg PO DAILY 10/23/15 01/19/20 History Lisinopril-Hctz 20-25 mg 1 tab PO DAILY 10/23/15 01/19/20 History [Zestoretic 20-25] metFORMIN HCL [Glucophage] 500 mg PO DAILY 10/23/15 01/19/20 History Acetaminophen [Tylenol Extra 1,000 mg PO Q8HR PRN 12/01/18 01/19/20 History Strength] Gabapentin [Neurontin] 300 mg PO TID 12/21/18 01/19/20 History Tamsulosin HCl [Flomax] 0.4 mg PO DAILY 12/23/18 01/19/20 History Amiodarone [Cordarone] 200 mg PO BID #180 tab 12/26/18 01/19/20 Rx Apixaban [Eliquis] 5 mg PO BID #180 tab 12/26/18 01/19/20 Rx Atorvastatin [Lipitor] 40 mg PO HS #90 tablet 12/26/18 01/19/20 Rx amLODIPine [Norvasc] 10 mg PO DAILY #90 tablet 12/26/18 01/19/20 Rx Finasteride [Proscar] 5 mg PO DAILY 01/17/20 01/19/20 History Allergies Allergy/AdvReac Type Severity Reaction Status Date / Time naproxen [From Naprosyn] Allergy Rash/Hives Verified 01/19/20 06:49 Physical Exam Vitals: Vital Signs Temp Pulse Resp BP Pulse Ox 01/19/20 17:10 98/56 01/19/20 16:47 56 L 108/79 01/19/20 16:30 87/53 01/19/20 16:18 57 L 12 84/47 97 01/19/20 16:00 55 L 12 01/19/20 15:29 62 14 104/45 98 01/19/20 15:20 63 86/45 01/19/20 15:15 61 69/36 01/19/20 15:00 58 L 12 80/44 95 01/19/20 14:45 60 88/43 01/19/20 14:30 58 L 83/43 01/19/20 14:15 56 L 94/54 01/19/20 14:00 57 L 86/51 01/19/20 13:45 58 L 95/58 01/19/20 13:30 97.4 F L 63 16 94/57 95 01/19/20 13:20 18 87/38 97 01/19/20 13:00 61 16 125/59 95 01/19/20 12:45 58 L 16 126/58 94 L 01/19/20 12:30 64 16 135/55 94 L 01/19/20 12:15 65 16 125/60 94 L 01/19/20 12:08 98 F 60 16 124/58 94 L 01/19/20 07:26 98.0 F 55 L 16 172/74 97 Intake and Output 01/19/20 01/19/20 01/19/20 06:59 14:59 22:59 Intake Total 2251 Output Total 550 Balance 1701 Intake: IV 2251 Output: Urine 150 Estimated Blood Loss 400 Other: Voiding Method Indwelling Catheter Weight 126.5 kg General: Patient drowsy but arouses easily. alert and oriented x 3. No acute distress. HEENT: Sclerae are clear. Pupils equal, round and reactive to light bilaterally. No cervical adenopathy. No pharyngeal erythema or exudate. No thyromegaly. Lymphatic: No anterior cervical adenopathy. Chest: Heart regular in rate and rhythm positive S1 and S2. No S3. No S4. Systolic murmur. Lungs: Diminished to auscultation bilaterally. No wheezes rales or rhonchi. Respirations even and nonlabored. Abdomen/GI: Bowel sounds present in all 4 quadrants. Bowel sounds normoactive. No abdominal tenderness. No mass. No hepatomegaly or splenomegaly. No bruits. : North catheter in place Musculoskeletal/ Extremities: No tenderness on muscular exam. No ecchymosis. Vascular: Radial pulses equal. 2/4. Skin: No rash. Neurologic: Drowsy, alert and oriented times 3. No lateralizing deficits noted on gross inspection. Ortho: Postlaminectomy with surgical dressing in place Results CBC & Chem 7: 01/19/20 15:37 01/19/20 15:37 Labs: Abnormal Lab Results - Last 24 Hours (Table) 01/19/20 01/19/20 01/19/20 Range/Units 07:15 12:28 15:17 RBC (4.30-5.90) m/uL Hgb (13.0-17.5) gm/dL Hct (39.0-53.0) % MCV (80.0-100.0) fL Lymphocytes # (1.0-4.8) k/uL Potassium (3.5-5.1) mmol/L Chloride (98-107) mmol/L Carbon Dioxide (22-30) mmol/L BUN (9-20) mg/dL Creatinine (0.66-1.25) mg/dL Glucose (74-99) mg/dL POC Glucose (mg/dL) 141 H 155 H 217 H (75-99) mg/dL 01/19/20 01/19/20 01/19/20 Range/Units 15:37 15:37 16:48 RBC 3.28 L (4.30-5.90) m/uL Hgb 10.8 L (13.0-17.5) gm/dL Hct 34.2 L (39.0-53.0) % MCV 104.2 H (80.0-100.0) fL Lymphocytes # 0.5 L (1.0-4.8) k/uL Potassium 5.6 H (3.5-5.1) mmol/L Chloride 109 H (98-107) mmol/L Carbon Dioxide 21 L (22-30) mmol/L BUN 38 H (9-20) mg/dL Creatinine 1.93 H (0.66-1.25) mg/dL Glucose 204 H (74-99) mg/dL POC Glucose (mg/dL) 243 H (75-99) mg/dL Assessment and Plan Assessment: 1. Hypotension secondary to likely volume depletion and dehydration, received a total of 1.5 L bolus along with normal saline at 75 mL per hour. We'll continue to monitor urine output closely, repeat labs in the morning. 2. Acute kidney injury. Continue with IV hydration and repeat CMP in a.m. 3. Status post laminectomy decompression L2-L3 and L3-L4 by Dr. Mckeon. Surgical dressing in place, clean dry and intact. Pain medications when necessary 4. paroxysmal atrial fibrillation. On amiodarone 200 mg twice a day, Eliquis 5 mg by mouth twice a day 5. Femoral-popliteal occlusive disease, peripheral artery disease status post left fem-pop atherectomy and balloon angioplasty. pravastatin 40 mg daily and Eliquis 5mg by mouth twice a day. 6. Hypertension. Continue amlodipine 10 mg daily, Zestoretic 1 daily, will hold till a.m. pending improvement in blood pressure. 7. Diabetes mellitus type 2, insulin requiring. Continue metformin 500 mg daily, NovoLog 70/30 25 twice a day. Continue NovoLog scale before meals and at bedtime. 8. Hyperlipidemia. Continue statin. 9. Hypothyroidism. Continue levothyroxine 25 mg daily. 10. Diabetic neuropathy. Continue gabapentin 300 mg 3 times a day 11 BPH. Continue Flomax 0.4 mg daily, Proscar 5 mg daily 12. Gastroesophageal reflux disease. Pepcid. 13. DVT prophylaxis. On anticoagulation 14. Obstructive sleep apnea. We'll continue oxygen supplementation and patient to get CPAP from home Patient will be admitted to the hospital for a minimum of 2 night stay. Discharge plan: Most likely return home Thank you Dr. Mckeon for the consult will follow along closely Impression and plan of care have been directed as dictated by the signing physician. Sagrario Be nurse practitioner acting as scribe for signing physician.
[2020-01-19 20:22] LABS: Glucose,Whole Blood 279 mg/dL (75-99)
[2020-01-19] MEDS: ATORVASTATIN 40 MG TAB PO SCH (20:34)
[2020-01-19] MEDS: HYDROcodone/APAP 5-325MG 1 EACH TAB PO PRN (20:34)
[2020-01-19] MEDS: INSULN ASP PRT/INSULIN ASPART 100 UNIT/ML 10 ML VIAL SQ SCH (20:35)
[2020-01-20] MEDS: HYDROmorphone 1 MG/ML 1 ML SYRINGE IVP PRN ×3 (00:17→17:27)
[2020-01-20] MEDS: SODIUM CHLORIDE 0.9% 1,000 ML IV SCH ×2 (02:49→06:42)
[2020-01-20 05:51] LABS: Glucose,Whole Blood 180 mg/dL (75-99)
[2020-01-20] MEDS: LEVOTHYROXINE 25 MCG TAB PO SCH (06:38)
[2020-01-20] MEDS: HYDROcodone/APAP 5-325MG 1 EACH TAB PO PRN ×2 (06:38→16:37)
[2020-01-20] MEDS: INSULIN ASPART (NovoLOG) 100 UNIT/ML VIAL SQ SCH ×4 (06:39→21:18)
[2020-01-20] MEDS ORDERED: metFORMIN 500 MG TAB PO SCH (07:30)
[2020-01-20 08:03] LABS: Basophils % (A) 0 %; Eosinophils % (A) 0 %; HCT 33.9 % (39.0-53.0); HGB 10.3 gm/dL (13.0-17.5); Hypochromasia Slight; Lymphocytes # (A) 0.4 k/uL (1.0-4.8); Lymphocytes % (A) 5 %; MCH 31.3 pg (25.0-35.0); MCHC 30.3 g/dL (31.0-37.0); MCV 103.2 fL (80.0-100.0); Macrocytosis Slight; Mean Platelet Volume 7.7; Monocytes # (A) 0.5 k/uL (0-1.0); Monocytes % (A) 7 %; Neutrophils # (A) 6.8 k/uL (1.3-7.7); Neutrophils % (A) 87 %; Platelet Count 190 k/uL (150-450); RBC 3.28 m/uL (4.30-5.90); RDW 13.1 % (11.5-15.5); WBC 7.8 k/uL (3.8-10.6)
[2020-01-20 08:13] LABS: Potassium 5.9 mmol/L (3.5-5.1)
[2020-01-20] MEDS: FAMOTIDINE 20 MG TAB PO SCH (08:31)
[2020-01-20] MEDS: SENNOSIDES-DOCUSATE SODIUM 1 EACH TAB PO SCH (08:31)
[2020-01-20] MEDS: FINASTERIDE 5 MG TAB PO SCH (08:31)
[2020-01-20] MEDS: AMIODARONE 200 MG TAB PO SCH ×2 (08:31→21:07)
[2020-01-20] MEDS: APIXABAN 5 MG TAB PO SCH ×2 (08:31→21:07)
[2020-01-20] MEDS: GABAPENTIN 300 MG CAP PO SCH ×3 (08:31→21:08)
[2020-01-20] MEDS: TAMSULOSIN 0.4 MG CAP.ER.24H PO SCH (08:31)
[2020-01-20] MEDS: INSULN ASP PRT/INSULIN ASPART 100 UNIT/ML 10 ML VIAL SQ SCH ×2 (08:32→21:19)
[2020-01-20] MEDS: amLODIPine 10 MG TAB PO SCH ×2 (08:34→08:47)
[2020-01-20] MEDS ORDERED: LISINOPRIL-HCTZ 20-25 MG 1 EACH TAB PO SCH (09:00)
--- NOTE | 2020-01-20 09:03 | P.PN ---
Progress Note - Text Progress Note Date: 01/20/20 Postoperative day #1 Patient is seen and examined today at bedside. The patient has some pain around the surgical site as expected. Pain is being controlled with medication. Yesterday evening we moved him over to telemetry as he was somewhat hypotensive and lethargic. With both of these issues in the evening. He was saturating 100% yesterday but did not sleep with CPAP overnight. His glucose is still riding high. She denies nausea or vomiting. Denies new changes in his lower extremities. Physical Exam Afebrile with stable vital signs Abdomen is soft nontender. Chest has good excursion deep and space expiration The incision site is on the right had some bloody drainage without any purulence. I change the right sided dressing. There is no active drainage currently. No erythema there is no purulence. Extremities have not had neurologic change from prior to surgery. Calves and thighs were soft nontender without evidence of DVT. Assessment/Plan Postoperative day #1 status post minimally invasive decompression and fusion for his severe spinal stenosis with spondylolisthesis lower extremity radiculopathy and claudication. The patient is making progress though it is somewhat slow. He has a number of medical issues and is obese which is making his mobilization will be difficult BuSpar. We will have therapy work with him to get him out of bed. Medicine is seeing him and monitoring him closely to monitor his renal function blood sugars and blood pressure. Patient is progressing somewhat slowly as expected from the surgery. We will continue to increase the patient's mobilization with therapy. We will continue pain control with oral or IV medications. We'll continue to follow patient closely.
[2020-01-20] MEDS ORDERED: FUROSEMIDE 10 MG/ML 4 ML VIAL IV STA (09:08)
[2020-01-20 11:42] LABS: Glucose,Whole Blood 164 mg/dL (75-99)
--- NOTE | 2020-01-20 12:41 | P.CRDCN ---
History of Present Illness Consult date: 01/20/20 History of present illness: This is a pleasant 74-year-old gentleman with coronary artery disease and prior stenting of the right coronary artery in December 2018 as well as peripheral arterial disease and prior peripheral revascularization as well as paroxysmal atrial fibrillation and hypertension and dyslipidemia who was admitted to the hospital to undergo laminectomy and decompression of L2-L3 and L3-L4 which was performed earlier today. Postoperatively, the patient was slightly hypotensive. He stated that he did not have any symptoms of chest pain or chest discomfort nor shortness of breath nor dizziness or lightheadedness nor sweating and no syncope. Because of that the troponin was checked and that came in to be abnormal and the patient was ruled in for acute non-ST patient myocardial infarction. Because of the low blood pressure the patient was given 1 L of IV fluid with improvement in the systolic blood pressure. The patient was seen this morning and he stated that he is not having any symptoms of chest pain or chest discomfort and seems to be oriented and alert. He was slightly lethargic when he was seen earlier today by the primary care team. The EKG showed what it seems to be sinus rhythm with low voltage QRS but no ischemic ST or T-wave abnormalities seen. Beside that the creatinine came in to be abnormal and he is in acute on chronic renal failure. The potassium is also elevated at 5.6. He probably developed acute renal failure secondary to hypovolemia and volume loss. At this point and in view of the absence of any symptoms of chest pain or chest discomfort and also because he is hemodynamically stable and because he is in acute renal failure I would consider a conservative medical approach regarding the abnormal troponin. We'll obtain an echo to assess for ejection fraction and for any wall motion abnormalities concerning for severe underlying coronary artery disease. Meanwhile continue holding any potassium supplement and continue monitor the potassium and monitor the kidney function. Also I'm going to hold his amlodipine at this point. Beside that continue the rest of his medications including the statin. It seems that he is receiving oral anticoagulation regarding the atrial fibrillation. We'll continue monitor the heart rate and avoid any AV shima hermelinda agents. On examination he does have very significant systolic murmur at the right and left upper sternal border consistent with aortic stenosis. Past Medical History Past Medical History: Atrial Fibrillation, Coronary Artery Disease (CAD), Diabetes Mellitus, Hyperlipidemia, Hypertension, Osteoarthritis (OA), Sleep Apnea/CPAP/BIPAP, Thyroid Disorder Additional Past Medical History / Comment(s): varicose veins, poor circulation in maren legs, occ edema of maren ankles, c-diff 2012, History of Any Multi-Drug Resistant Organisms: C-DIFF Date of last positivie culture/infection: 2012 MDRO Source:: SECONDARY TO ABX FROM KNEE SURGERY Past Surgical History: Bariatric Surgery, Heart Catheterization With Stent, Joint Replacement, Orthopedic Surgery Additional Past Surgical History / Comment(s): BILATERAL KNEE REPLACEMENTS, LEFT SHOULDER TIGHTENED LIGAMENTS/ROTATOR CUFF, LAP BAND 2011, FINGER TRAUMA LED TO AMPUTATION of left index finger, left hip replacement, maren cataracts, Left leg stent placed to improve circulation (December) one heart stent Past Anesthesia/Blood Transfusion Reactions: No Reported Reaction Date of Last Stent Placement:: dec 2018 ([facility]) Past Psychological History: No Psychological Hx Reported Smoking Status: Former smoker Past Alcohol Use History: Rare Additional Past Alcohol Use History / Comment(s): Patient was a smoker and quit 45 1974 approx Past Drug Use History: None Reported - Past Family History Mother Family Medical History: Dementia Additional Family Medical History / Comment(s): ALZHEIMERS, OF NORMAL CAUSES AT AGE 89 Father Family Medical History: Coronary Artery Disease (CAD), Hypertension Additional Family Medical History / Comment(s): AT AGE 87 from myocardial i nfarction. Sister(s) Family Medical History: Cancer Additional Family Medical History / Comment(s): Patient has 3 sisters and one has history of lung cancer. Daughter(s) Additional Family Medical History / Comment(s): Patient has 1 son alive and welland 1 daughter with Ovarian CA Medications and Allergies Home Medications Medication Instructions Recorded Confirmed Type Insulin NPH/Reg Insulin 70/30 25 unit SQ BID 10/23/15 01/19/20 History [humuLIN 70/30 VIAL] Levothyroxine Sodium [Synthroid] 25 mcg PO DAILY 10/23/15 01/19/20 History Lisinopril-Hctz 20-25 mg 1 tab PO DAILY 10/23/15 01/19/20 History [Zestoretic 20-25] metFORMIN HCL [Glucophage] 500 mg PO DAILY 10/23/15 01/19/20 History Acetaminophen [Tylenol Extra 1,000 mg PO Q8HR PRN 12/01/18 01/19/20 History Strength] Gabapentin [Neurontin] 300 mg PO TID 12/21/18 01/19/20 History Tamsulosin HCl [Flomax] 0.4 mg PO DAILY 12/23/18 01/19/20 History Amiodarone [Cordarone] 200 mg PO BID #180 tab 12/26/18 01/19/20 Rx Apixaban [Eliquis] 5 mg PO BID #180 tab 12/26/18 01/19/20 Rx Atorvastatin [Lipitor] 40 mg PO HS #90 tablet 12/26/18 01/19/20 Rx amLODIPine [Norvasc] 10 mg PO DAILY #90 tablet 12/26/18 01/19/20 Rx Finasteride [Proscar] 5 mg PO DAILY 01/17/20 01/19/20 History Allergies Allergy/AdvReac Type Severity Reaction Status Date / Time naproxen [From Naprosyn] Allergy Rash/Hives Verified 01/19/20 06:49 Physical Exam Vitals: Vital Signs Temp Pulse Resp BP BP Pulse Ox 01/20/20 12:00 66 18 120/56 94 L 01/20/20 08:00 98.3 F 66 18 130/61 94 L 01/20/20 03:47 98.3 F 69 18 119/59 95 01/19/20 23:00 98.0 F 58 L 18 113/56 96 01/19/20 20:00 97.3 F L 66 18 104/52 98 01/19/20 18:45 60 18 105/53 97 01/19/20 17:32 56 L 100/42 01/19/20 17:10 98/56 01/19/20 16:47 56 L 108/79 01/19/20 16:30 87/53 01/19/20 16:18 57 L 12 84/47 97 01/19/20 16:00 55 L 12 01/19/20 15:29 62 14 104/45 98 01/19/20 15:20 63 86/45 01/19/20 15:15 61 69/36 01/19/20 15:00 58 L 12 80/44 95 01/19/20 14:45 60 88/43 01/19/20 14:30 58 L 83/43 01/19/20 14:15 56 L 94/54 01/19/20 14:00 57 L 86/51 01/19/20 13:45 58 L 95/58 01/19/20 13:30 97.4 F L 63 16 94/57 95 01/19/20 13:20 18 87/38 97 01/19/20 13:00 61 16 125/59 95 01/19/20 12:45 58 L 16 126/58 94 L Intake and Output 01/19/20 01/20/20 01/20/20 22:59 06:59 14:59 Intake Total 590 1005 120 Output Total 300 Balance 590 705 120 Intake: Intake, IV Titration 350 525 Amount Sodium Chloride 0.9% 1, 350 525 000 ml @ 75 mls/hr IV . [id number] [facility] Rx#:[id number] Oral 240 480 120 Output: Urine 300 Uretheral (North) 300 Other: Voiding Method Indwelling Catheter Indwelling Catheter Indwelling Catheter Weight 124 kg - Constitutional General appearance: no acute distress - Respiratory Respiratory: bilateral: diminished - Cardiovascular Rhythm: regular Heart sounds: normal: S1, S2 Abnormal Heart Sounds: systolic murmur Results 01/20/20 07:25 01/20/20 07:25 Cardiac Enzymes 01/20/20 01/20/20 Range/Units 07:25 11:08 Troponin I 1.770 H* 1.990 H* (0.000-0.034) ng/mL CBC 01/19/20 01/20/20 Range/Units 15:37 07:25 WBC 6.8 7.8 (3.8-10.6) k/uL RBC 3.28 L 3.28 L (4.30-5.90) m/uL Hgb 10.8 L 10.3 L (13.0-17.5) gm/dL Hct 34.2 L 33.9 L (39.0-53.0) % Plt Count 170 190 (150-450) k/uL Comprehensive Metabolic Panel 01/19/20 01/20/20 Range/Units 15:37 07:25 Sodium 138 137 (137-145) mmol/L Potassium 5.6 H 5.9 H (3.5-5.1) mmol/L Chloride 109 H 108 H (98-107) mmol/L Carbon Dioxide 21 L 24 (22-30) mmol/L BUN 38 H 47 H (9-20) mg/dL Creatinine 1.93 H 2.44 H (0.66-1.25) mg/dL Glucose 204 H 185 H (74-99) mg/dL Calcium 8.4 8.0 L (8.4-10.2) mg/dL Current Medications Generic Name Dose Route Start Last Admin Trade Name Freq PRN Reason Stop Dose Admin Acetaminophen 1,000 mg 01/19/20 12:14 Acetaminophen Tab 500 Mg Tab PO Q8HR PRN Mild to Moderate Pain Hydrocodone Bitart/Acetaminophen 1 each 01/19/20 12:09 01/20/20 06:38 Hydrocodone/Apap 5-325mg 1 Each Tab PO 1 each Q4HR PRN Administration Moderate Pain Hydrocodone Bitart/Acetaminophen 2 each 01/19/20 12:09 01/20/20 01:41 Hydrocodone/Apap 5-325mg 1 Each Tab PO 2 each Q4HR PRN Administration Moderate Pain Amiodarone HCl 200 mg 01/19/20 21:00 01/20/20 08:31 Amiodarone 200 Mg Tab PO 200 mg BID LEAH Administration Amlodipine Besylate 10 mg 01/20/20 09:00 01/20/20 08:47 Amlodipine 10 Mg Tab PO Not Given DAILY LEAH Apixaban 5 mg 01/20/20 09:00 01/20/20 08:31 Apixaban 5 Mg Tab PO 5 mg BID LEAH Administration Atorvastatin Calcium 40 mg 01/19/20 21:00 01/19/20 20:34 Atorvastatin 40 Mg Tab PO 40 mg HS LEAH Administration Benzocaine/Menthol 1 each 01/19/20 12:08 01/20/20 03:27 Benzocaine/Menthol Lozeng 1 Each Lozenge MUCOUS MEM 1 each Q4HR PRN Administration Sore Throat Famotidine 20 mg 01/20/20 09:00 01/20/20 08:31 Famotidine 20 Mg Tab PO 20 mg DAILY LEAH Administration Finasteride 5 mg 01/20/20 09:00 01/20/20 08:31 Finasteride 5 Mg Tab PO 5 mg DAILY LEAH Administration Gabapentin 300 mg 01/19/20 16:00 01/20/20 08:31 Gabapentin 300 Mg Cap PO 300 mg TID LEAH Administration Hydromorphone HCl 0.5 mg 01/19/20 12:08 Hydromorphone 0.5 Mg/0.5 Ml Syringe IVP Q4HR PRN Pain Hydromorphone HCl 1 mg 01/19/20 12:08 01/20/20 05:01 Hydromorphone 1 Mg/Ml 1 Ml Syringe IVP 1 mg Q4HR PRN Administration Pain Sodium Chloride 1,000 mls @ 75 mls/hr 01/19/20 12:15 01/20/20 06:42 Saline 0.9% IV 75 mls/hr .[id number] LEAH Administration Insulin Aspart 25 unit 01/19/20 21:00 01/20/20 08:32 Insuln Asp Prt/Insulin Aspart 100 Unit/Ml 10 Ml Vial SQ 25 unit BID LEAH Administration Insulin Aspart 0 unit 01/19/20 17:30 01/20/20 06:39 Insulin Aspart (Novolog) 100 Unit/Ml Vial SQ 3 unit ACHS LEAH Administration Protocol Levothyroxine Sodium 25 mcg 01/20/20 06:30 01/20/20 06:38 Levothyroxine 25 Mcg Tab PO 25 mcg DAILY@0630 LEAH Administration Lidocaine HCl 0.1 ml 01/18/20 16:04 Lidocaine 1% (10mg/Ml) For Iv Start INTRADERMA PER PROTOCOL PRN IV Start Magnesium Hydroxide 2,400 mg 01/19/20 12:08 Magnesium Hydroxide 2,400 Mg/10 Ml Cup PO DAILY PRN Constipation Ondansetron HCl 4 mg 01/19/20 12:09 Ondansetron 4 Mg/2 Ml Vial IVP Q6HR PRN Nausea Senna/Docusate Sodium 1 each 01/20/20 09:00 01/20/20 08:31 Sennosides-Docusate Sodium 1 Each Tab PO 1 each DAILY LEAH Administration Tamsulosin HCl 0.4 mg 01/20/20 09:00 01/20/20 08:31 Tamsulosin 0.4 Mg Cap.Er.24h PO 0.4 mg DAILY LEAH Administration Intake and Output 01/19/20 01/20/20 01/20/20 22:59 06:59 14:59 Intake Total 590 1005 120 Output Total 300 Balance 590 705 120 Intake: Intake, IV Titration 350 525 Amount Sodium Chloride 0.9% 1, 350 525 000 ml @ 75 mls/hr IV . [id number] [facility] Rx#:[id number] Oral 240 480 120 Output: Urine 300 Uretheral (North) 300 Other: Voiding Method Indwelling Catheter Indwelling Catheter Indwelling Catheter Weight 124 kg 01/20/20 07:25 01/20/20 07:25 Assessment and Plan Assessment: Assessment #1 status post laminectomy and decompression #2 post operatively acute coronary syndrome #3 acute on chronic renal failure #4 paroxysmal atrial fibrillation #5 multiple comorbid conditions Plan #1 DC amlodipine in view of the margin a low blood pressure #2 avoid any nephrotoxic medications #3 monitor the kidney function #4 continue the statin #5 obtain an echocardiogram was Doppler #6 consider conservative medical approach Thank you for allowing us participate in his care
--- NOTE | 2020-01-20 12:58 | P.PN ---
Subjective Progress Note Date: 01/20/20 HISTORY OF PRESENT ILLNESS This is a 74-year-old male, patient of Dr. Haile Souza and Dr. Connelly past medical history significant for diabetes mellitus, hypertension, dysli pidemia, peripheral vascular disease, coronary artery disease with stenting, proximal atrial fibrillation, obstructive sleep apnea, and morbid obesity. Patient had laminectomy and decompression L2-L3 and L3-L4 today with Dr. Mckeon, postoperatively developed hypotension and lethargy patient was admitted to fifth floor awaiting transfer to [facility] at this time. Nurse reported an a team was called on the patient for hypotension, blood pressure in the 60s systolic, did receive 1 L of fluid with improvement of blood pressures to 90 systolic. Patient still remains drowsy, awakens easily and answers questions did fall back asleep while talking. We'll be cautious with pain medications at this time and hold BP agents until tomorrow will reassess. Hemoglobin was 10.8, BUNs 38 creatinine 1.9, potassium 5.6, CO2 21. Patient denies previous history of kidney disease last found creatinine from 12/2018 was 1.1. Likely related to dehydration, monitor urine output closely, will continue with hydrating and repeat labs in a.m. Patient was on 6 L nasal cannula, was able down to wean down to 3 L nasal cannula with pulse ox 97%. Patient was going to call his to bring BiPAP from home. 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 01/19: Blood pressure is improved today. Patient does have congestion for which one dose of IV Lasix will be given and IV fluids will be discontinued within 2 hours. Renal function is increased to BUN of 47 and creatinine 2.44. Hemoglobin is stable at 10.3. Potassium 5.9. Blood sugars running between 164 and 279. Troponins ordered which came back at 1.770 and 1.990. Cardiology consult and echocardiogram added. Patient is complaining of some shortness of breath but no chest pain. Surgical pain is controlled. REVIEW OF SYSTEMS Constitutional: Denies chills, Denies fatigue, Denies fever, Denies poor appetite, Denies weight loss Eyes: denies blurred vision, denies pain Ears, nose, mouth and throat: Denies headache, Denies sore throat, Denies vertigo Cardiovascular: Denies chest pain, Denies decreased exercise tolerance, Denies dyspnea on exertion, Denies edema, Denies leg edema, Denies lightheadedness, Denies palpitations, Denies shortness of breath, Denies syncope Respiratory: Denies cough, Denies cough with sputum, Denies dyspnea, Denies excessive sputum, Denies hemoptysis, Denies home oxygen, Denies wheezing Gastrointestinal: Denies abdominal pain, Denies diarrhea, Denies loss of appetite, Denies nausea, Denies vomiting Genitourinary: Denies dysuria, Denies urinary retention Musculoskeletal: Denies frequent falls, Denies gait dysfunction, Denies muscle weakness, Denies myalgias. Positive back pain Integumentary: Denies pruritus, Denies rash, Denies wounds Neurological: Denies numbness, Denies vertigo, Denies weakness Psychiatric: Denies anxiety, Denies depression Endocrine: Denies fatigue, Denies weight change PHYSICAL EXAMINATION General: Patient drowsy but arouses easily. alert and oriented x 3. No acute distress. HEENT: Sclerae are clear. Pupils equal, round and reactive to light bilaterally. No cervical adenopathy. No pharyngeal erythema or exudate. No thyromegaly. Lymphatic: No anterior cervical adenopathy. Chest: Heart regular in rate and rhythm positive S1 and S2. No S3. No S4. Systolic murmur. Lungs: Diminished to auscultation bilaterally. No wheezes rales or rhonchi. R espirations even and nonlabored. Abdomen/GI: Bowel sounds present in all 4 quadrants. Bowel sounds normoactive. No abdominal tenderness. No mass. No hepatomegaly or splenomegaly. No bruits. : North catheter in place Musculoskeletal/ Extremities: No tenderness on muscular exam. No ecchymosis. Vascular: Radial pulses equal. 2/4. Skin: No rash. Neurologic: Drowsy, alert and oriented times 3. No lateralizing deficits noted on gross inspection. Ortho: Postlaminectomy with surgical dressing in place ASSESSMENT AND PLAN 1. Hypotension secondary to likely volume depletion and dehydration, received a total of 1.5 L bolus along with normal saline at 75 mL per hour. We'll continue to monitor urine output closely, repeat labs in the morning. 2. Postop acute coronary syndrome, acute non-ST elevated myocardial infarction. Cardiology consult appreciated. Amlodipine discontinued, continue statin. Echocardiogram. Cardiology is planning for conservative treatment. 3. Acute kidney injury. One dose of IV Lasix today. Recheck renal function in the morning, discontinue IV fluids. Lisinopril hydrochlorothiazide was discontinued. 4. Status post laminectomy decompression L2-L3 and L3-L4 by Dr. Mckeon. Dressing change this morning was done by Dr. Mckeon. Pain medications when necessary 5. Paroxysmal atrial fibrillation. On amiodarone 200 mg twice a day, Eliquis 5 mg by mouth twice a day 6. Femoral-popliteal occlusive disease, peripheral artery disease status post left fem-pop atherectomy and balloon angioplasty. pravastatin 40 mg daily and Eliquis 5mg by mouth twice a day. 7. Hypertension. Continue amlodipine 10 mg daily, Zestoretic 1 daily, will hold till a.m. pending improvement in blood pressure. 8. Diabetes mellitus type 2, insulin requiring. Continue metformin 500 mg daily, NovoLog 70/30 25 twice a day. Continue NovoLog scale before meals and at bedtime. 9. Hyperlipidemia. Continue statin. 10. Hypothyroidism. Continue levothyroxine 25 mg daily. 11. Diabetic neuropathy. Continue gabapentin 300 mg 3 times a day 12 BPH. Continue Flomax 0.4 mg daily, Proscar 5 mg daily 13. Gastroesophageal reflux disease. Pepcid. 14. DVT prophylaxis. On anticoagulation 15. Obstructive sleep apnea. We'll continue oxygen supplementation and patient to get CPAP from home DISCHARGE PLAN Home Impression and plan of care have been directed as dictated by the signing physician. Ivy Simpson nurse practitioner acting as scribe for signing physician. Objective - Vital Signs Vital signs: Vital Signs Temp 98.3 F 01/20/20 08:00 Pulse 66 01/20/20 08:00 Resp 18 01/20/20 08:00 BP 130/61 01/20/20 08:00 Pulse Ox 94 L 01/20/20 08:00 Intake & Output 01/19/20 01/20/20 01/20/20 18:59 06:59 18:59 Intake Total 2251 1595 Output Total 550 300 Balance 1701 1295 Weight 126.5 kg 124 kg Intake: IV 2251 Intake, IV Titration 875 Amount Sodium Chloride 0.9% 1, 875 000 ml @ 75 mls/hr IV . [id number] [facility] Rx#:[id number] Oral 720 Output: Urine 150 300 Uretheral (North) 300 Estimated Blood Loss 400 Other: Voiding Method Indwelling Catheter Indwelling Catheter - Labs CBC & Chem 7: 01/20/20 07:25 01/20/20 07:25 Labs: Abnormal Lab Results - Last 24 Hours (Table) 01/19/20 01/19/20 01/19/20 Range/Units 12:28 15:17 15:37 RBC 3.28 L (4.30-5.90) m/uL Hgb 10.8 L (13.0-17.5) gm/dL Hct 34.2 L (39.0-53.0) % MCV 104.2 H (80.0-100.0) fL MCHC (31.0-37.0) g/dL Lymphocytes # 0.5 L (1.0-4.8) k/uL Potassium (3.5-5.1) mmol/L Chloride (98-107) mmol/L Carbon Dioxide (22-30) mmol/L BUN (9-20) mg/dL Creatinine (0.66-1.25) mg/dL Glucose (74-99) mg/dL POC Glucose (mg/dL) 155 H 217 H (75-99) mg/dL Calcium (8.4-10.2) mg/dL 01/19/20 01/19/20 01/19/20 Range/Units 15:37 16:48 20:20 RBC (4.30-5.90) m/uL Hgb (13.0-17.5) gm/dL Hct (39.0-53.0) % MCV (80.0-100.0) fL MCHC (31.0-37.0) g/dL Lymphocytes # (1.0-4.8) k/uL Potassium 5.6 H (3.5-5.1) mmol/L Chloride 109 H (98-107) mmol/L Carbon Dioxide 21 L (22-30) mmol/L BUN 38 H (9-20) mg/dL Creatinine 1.93 H (0.66-1.25) mg/dL Glucose 204 H (74-99) mg/dL POC Glucose (mg/dL) 243 H 279 H (75-99) mg/dL Calcium (8.4-10.2) mg/dL 01/20/20 01/20/20 01/20/20 Range/Units 05:50 07:25 07:25 RBC 3.28 L (4.30-5.90) m/uL Hgb 10.3 L (13.0-17.5) gm/dL Hct 33.9 L (39.0-53.0) % MCV 103.2 H (80.0-100.0) fL MCHC 30.3 L (31.0-37.0) g/dL Lymphocytes # 0.4 L (1.0-4.8) k/uL Potassium 5.9 H (3.5-5.1) mmol/L Chloride 108 H (98-107) mmol/L Carbon Dioxide (22-30) mmol/L BUN 47 H (9-20) mg/dL Creatinine 2.44 H (0.66-1.25) mg/dL Glucose 185 H (74-99) mg/dL POC Glucose (mg/dL) 180 H (75-99) mg/dL Calcium 8.0 L (8.4-10.2) mg/dL
[2020-01-20 17:06] LABS: Glucose,Whole Blood 149 mg/dL (75-99)
[2020-01-20] MEDS ORDERED: SODIUM CHLORIDE 0.9% 1,000 ML IV SCH (18:45)
[2020-01-20 19:52] LABS: Calcium 8.2 mg/dL (8.4-10.2)
--- NOTE | 2020-01-20 19:52 | ECHOF ---
Referral Reason:LVF MEASUREMENTS -------- HEIGHT: 180.3 cm WEIGHT: 123.8 kg BP: 130/61 LAESV Index (A-L): 33.13 ml/m Ao Diam: 2.8 cm (2.0 - 3.7) AV Cusp: 1.7 cm (1.5 - 2.6) MV E Edward: 1.48 m/s MV DecT: 185 ms MV A Edward: 0.70 m/s MV E/A Ratio: 2.11 %FS: 31.28 % EDV(Teich): 346.99 ml EF(Teich): 57.26 % ESV(Teich): 148.31 ml IVSd: 1.15 cm (0.6 - 1.1) IVSs: 1.77 cm LVIDd: 8.02 cm (3.9 - 5.3) LVIDs: 5.51 cm LVPWd: 1.36 cm (0.6 - 1.1) LVPWs: 1.69 cm SV(Teich): 198.68 ml FINDINGS -------- Sinus rhythm. This was a technically difficult study with suboptimal views. The left ventricular size is normal. There is mild concentric left ventricular hypertrophy. Overa ll left ventricular systolic function is normal with, an EF between 55 - 60 %. The RV was not well visualized. LA is midly dilated 29-33ml/m2. The right atrium was not well visualized. 5.0mg of Lumason was utilized for enhancement of images Interatrial and interventricular septum intact. The aortic valve was not well visualized. There is no evidence of aortic regurgitation. There is no evidence of aortic stenosis. No mitral regurgitation. No regurgitation noted The pulmonic valve was not well visualized. There is no pericardial effusion. CONCLUSIONS -------- 1. The left ventricular size is normal. 2. There is mild concentric left ventricular hypertrophy. 3. Overall left ventricular systolic function is normal with, an EF between 55 - 60 %. 4. The RV was not well visualized. 5. LA is midly dilated 29-33ml/m2. RAILROAD WATCHMAN: Roula Azevedo [facility]
[2020-01-20 20:05] LABS: Potassium 6.1 mmol/L (3.5-5.1)
[2020-01-20] MEDS ORDERED: SODIUM POLYSTYRENE SULFONATE 15 GM/60 ML BOTTLE PO STA (20:39)
[2020-01-20] MEDS ORDERED: SODIUM BICARB 8.4% 50 ML SYR (1 MEQ/ML) IV STA (20:39)
[2020-01-20] MEDS ORDERED: SODIUM BICARB 8.4% 50 ML SYR (1 MEQ/ML) ONE (21:06)
[2020-01-20] MEDS: ATORVASTATIN 40 MG TAB PO SCH (21:07)
[2020-01-20 21:09] LABS: Glucose,Whole Blood 178 mg/dL (75-99)
[2020-01-21 06:38] LABS: Glucose,Whole Blood 138 mg/dL (75-99)
[2020-01-21] MEDS: INSULIN ASPART (NovoLOG) 100 UNIT/ML VIAL SQ SCH ×4 (06:41→21:54)
[2020-01-21] MEDS: LEVOTHYROXINE 25 MCG TAB PO SCH (06:42)
[2020-01-21] MEDS ORDERED: FUROSEMIDE 10 MG/ML 4 ML VIAL IV STA (07:02)
[2020-01-21] MEDS ORDERED: FUROSEMIDE 10 MG/ML 4 ML VIAL ONE (07:05)
--- NOTE | 2020-01-21 08:48 | XR ---
EXAMINATION TYPE: XR chest 1V portable DATE OF EXAM: 01/21/2020 COMPARISON: 01/07/2020 HISTORY: Shortness of breath TECHNIQUE: Single frontal view of the chest is obtained. FINDINGS: The heart is stable in size but there is bilateral infiltrate and small effusion with inte rstitial pattern. No pneumothorax. Atherosclerotic change of the aorta. Suggestion postsurgical negro e involving the abdomen. IMPRESSION: Diffuse interstitial pattern with bilateral lower lobe infiltrate and small effusion. Di fferential diagnosis would include an atypical pneumonia versus CHF.
--- NOTE | 2020-01-21 09:00 | P.PN ---
Progress Note - Text Progress Note Date: 01/21/20 Orthopedic Spine: History of present illness: Patient is a pleasant 74-year-old male who is seen and examined at the bedside following posterior lateral decompression and fusion performed Friday. Patient continues to have significant difficulty overall postoperatively. Nursing states his troponin levels are currently elevated with levels yesterday at 2.3. He is being seen by cardiology has been diagnosed with postoperative acute coronary syndrome. He is having worsening desaturation. He is currently on BiPAP machine. He was been seen by Dr. Sepulveda in medicine. Nursing states patient is most likely being transferred to the ICU. The patient is able to answer questions. He does have some pain in lower extremities and at this surgical sites of the lumbar spine. He is able to move his feet. He has difficulty lifting his legs off the bed. He was having some drainage from his right surgical site which has improved this morning. Dressing is changed at the bedside. Nursing states he has had significant difficulty making urine and made approximately 550 mL's of urine or 24-hour. His North cath remains intact. Currently has hyperkalemia. Patient's past medical history includes heart disease, diabetes type 1, hypothyroidism, elevated cholesterol, atrial fibrillation, and history of blood clots. Physical Exam Lumbar Fusion: Status post surgical day number 2 Patient is awake, alert, and oriented 3 is able to answer some questions Vital signs appear fairly stable Patient currently on BiPAP machine Dorsiflexion, plantarflexion, and extensor hallucis longus positive sustained bilaterally Patient has significant difficulty lifting legs off the bed bilaterally No signs or symptoms of DVT; no calf pain; pneumatic cuffs intact bilateral lower extremities Dressing over the right incision site is removed; no active drainage from the right incision site Dressings are reapplied over the surgical sites during physical examination Examination of the surgical sites shows no evidence of erythema, purulence, or signs of infection Neurovascularly intact bilaterally lower extremities North catheter intact with some dark urine Assessment: Posterior lateral decompression and fusion Transforaminal lumbar interbody fusion Status post L2-3 and L3-4 minimally invasive posterior lateral decompression and fusion with transforaminal lumbar interbody fusion Low back pain Lower extremity radiculopathy L2-3 and L3-4 severe spinal stenosis L3-4 spondylolisthesis Lumbar degenerative disc disease Neurogenic claudication Obesity Elevated troponin at 2.3 Postoperative acute coronary syndrome Decreased urinary output Hyperkalemia 6.1 Hypoxia without support; currently on BiPAP Heart disease Diabetes type 1 Hypothyroidism Elevated cholesterol Atrial fibrillation History of blood clots Plan: 1. Ambulate as tolerated; work with Physical Therapy to increase mobilization 2. Continue pain control with IV and oral medications 3. Dressing has been changed; patient may shower with dressing intact 4. Patient is experiencing multiple medical comorbidities including acute coronary syndrome with elevated troponin, desaturation without mechanical support including BiPAP, hyperkalemia, and low urinary output. Patient has been seen by medicine this morning. Patient continues to be seen by cardiology. Nursing states patient is most likely being transferred to the ICU. We discussed having the patient's admits status transferred to medicine from orthopedics. 5. We will continue to follow the patient closely; patient will continue to remain in the hospital as he receives further treatment and evaluation for his other significant medical diagnoses 6. Patient can follow-up with Marquez Richter PA-C or Dr. Jace Mckeon at [facility] in 2-3 weeks following discharge
[2020-01-21 09:23] LABS: Calcium 8.1 mg/dL (8.4-10.2); Potassium 5.8 mmol/L (3.5-5.1)
[2020-01-21 09:24] LABS: Basophils % (A) 0 %; Eosinophils % (A) 0 %; HCT 34.5 % (39.0-53.0); HGB 10.9 gm/dL (13.0-17.5); Lymphocytes # (A) 0.4 k/uL (1.0-4.8); Lymphocytes % (A) 4 %; MCH 31.8 pg (25.0-35.0); MCHC 31.5 g/dL (31.0-37.0); MCV 100.8 fL (80.0-100.0); Mean Platelet Volume 7.4; Monocytes # (A) 0.5 k/uL (0-1.0); Monocytes % (A) 5 %; Neutrophils # (A) 8.8 k/uL (1.3-7.7); Neutrophils % (A) 90 %; Platelet Count 192 k/uL (150-450); RBC 3.42 m/uL (4.30-5.90); RDW 13.1 % (11.5-15.5); WBC 9.8 k/uL (3.8-10.6)
[2020-01-21 10:04] LABS: ABG Base Excess -2.5 mmol/L; ABG HCO3 24 mmol/L (21-25); ABG Oxygen Saturation 94.2 % (94-97); ABG PCO2 47 mmHg (35-45); ABG PH 7.31 (7.35-7.45); ABG PO2 69 mmHg (83-108); ABG TCO2 25 mmol/L (19-24); Allen Test Performed? Yes
--- NOTE | 2020-01-21 10:13 | P.PN ---
Subjective Progress Note Date: 01/21/20 HISTORY OF PRESENT ILLNESS This is a 74-year-old male, patient of Dr. Haile Souza and Dr. Connelly past medical history significant for diabetes mellitus, hypertension, dysli pidemia, peripheral vascular disease, coronary artery disease with stenting, proximal atrial fibrillation, obstructive sleep apnea, and morbid obesity. Patient had laminectomy and decompression L2-L3 and L3-L4 today with Dr. Mckeon, postoperatively developed hypotension and lethargy patient was admitted to fifth floor awaiting transfer to [facility] at this time. Nurse reported an a team was called on the patient for hypotension, blood pressure in the 60s systolic, did receive 1 L of fluid with improvement of blood pressures to 90 systolic. Patient still remains drowsy, awakens easily and answers questions did fall back asleep while talking. We'll be cautious with pain medications at this time and hold BP agents until tomorrow will reassess. Hemoglobin was 10.8, BUNs 38 creatinine 1.9, potassium 5.6, CO2 21. Patient denies previous history of kidney disease last found creatinine from 12/2018 was 1.1. Likely related to dehydration, monitor urine output closely, will continue with hydrating and repeat labs in a.m. Patient was on 6 L nasal cannula, was able down to wean down to 3 L nasal cannula with pulse ox 97%. Patient was going to call his to bring BiPAP from home. air sampling and monitoring was being placed at this time. 01/19: Blood pressure is improved today. Patient does have congestion for which one dose of IV Lasix will be given and IV fluids will be discontinued within 2 hours. Renal function is increased to BUN of 47 and creatinine 2.44. Hemoglobin is stable at 10.3. Potassium 5.9. Blood sugars running between 164 and 279. Troponins ordered which came back at 1.770 and 1.990. Cardiology consult and echocardiogram added. Patient is complaining of some shortness of breath but no chest pain. Surgical pain is controlled. 01/20: Patient is seen today on the cardiac except on unit. He has had difficulty with oxygenation through the night and is currently on a BiPAP. Patient desats quickly if BiPAP is removed. Currently pulse ox 92% on 50% FiO2. Repeat blood work reveals hemoglobin 10.9. Potassium is 5.8 with BUN 57 creatinine 3.04. Labs are to be called to nephrology. Patient will be order to transfer to the intensive care unit, Dr. Mccall updated. COVID testing added. REVIEW OF SYSTEMS Constitutional: Denies chills, Denies fatigue, Denies fever, Denies poor appetite, Denies weight loss Eyes: denies blurred vision, denies pain Ears, nose, mouth and throat: Denies headache, Denies sore throat, Denies vertigo Cardiovascular: Denies chest pain, significant decreased exercise tolerance, significant dyspnea on exertion, Denies edema, Denies leg edema, Denies lightheadedness, Denies palpitations, Denies shortness of breath, Denies syncope Respiratory: Significant dyspnea, Denies excessive sputum, Denies hemoptysis, Denies home oxygen, Denies wheezing Gastrointestinal: Denies abdominal pain, Denies diarrhea, Denies loss of appetite, Denies nausea, Denies vomiting Genitourinary: Denies dysuria, Denies urinary retention Musculoskeletal: Denies frequent falls, Denies gait dysfunction, Denies muscle weakness, Denies myalgias. Positive back pain Integumentary: Denies pruritus, Denies rash, Denies wounds Neurological: Denies numbness, Denies vertigo, Denies weakness Psychiatric: Denies anxiety, Denies depression Endocrine: Denies fatigue, Denies weight change PHYSICAL EXAMINATION General: Patient drowsy but arouses easily. alert and oriented x 3. Moderate respiratory distress on BiPAP. HEENT: Sclerae are clear. Pupils equal, round and reactive to light bilaterally. No cervical adenopathy. No pharyngeal erythema or exudate. No thyromegaly. Lymphatic: No anterior cervical adenopathy. Chest: Heart regular in rate and rhythm positive S1 and S2. No S3. No S4. Systolic murmur. Lungs: Diminished to auscultation bilaterally. Positive intercostal retractions and accessory muscle usage. Abdomen/GI: Bowel sounds present in all 4 quadrants. Bowel sounds normoactive. No abdominal tenderness. No mass. No hepatomegaly or splenomegaly. No bruits. : North catheter in place Musculoskeletal/ Extremities: No tenderness on muscular exam. No ecchymosis. Vascular: Radial pulses equal. 2/4. Skin: No rash. Neurologic: Drowsy, alert and oriented times 3. No lateralizing deficits noted on gross inspection. Ortho: Postlaminectomy with surgical dressing in place ASSESSMENT AND PLAN 1. Hypotension secondary to likely volume depletion and dehydration, received a total of 1.5 L bolus. We'll continue to monitor urine output closely, repeat labs in the morning. 2. Postop acute coronary syndrome, acute non-ST elevated myocardial infarction. Cardiology consult appreciated. Amlodipine discontinued, continue statin. Echocardiogram. Cardiology is planning for conservative treatment. 3. Acute kidney injury. One dose of IV Lasix today. Recheck renal function in the morning, discontinue IV fluids. Lisinopril hydrochlorothiazide was discontinued. 4. Acute hypoxic respiratory failure requiring BiPAP and transfer to the intensive care unit. Patient is followed by Dr. Mccall. 5. Continue Status post laminectomy decompression L2-L3 and L3-L4 by Dr. Mckeon. Dressing change this morning was done by Dr. Mckeon. Pain medications when necessary 6. Paroxysmal atrial fibrillation. On amiodarone 200 mg twice a day, Eliquis 5 mg by mouth twice a day 7. Femoral-popliteal occlusive disease, peripheral artery disease status post left fem-pop atherectomy and balloon angioplasty. pravastatin 40 mg daily and Eliquis 5mg by mouth twice a day. 8. Hypertension. Continue amlodipine 10 mg daily, Zestoretic 1 daily, will hold till a.m. pending improvement in blood pressure. 9. Diabetes mellitus type 2, insulin requiring. Continue metformin 500 mg daily, NovoLog 70/30 25 twice a day. Continue NovoLog scale before meals and at bedtime. 10. Hyperlipidemia. Continue statin. 11. Hypothyroidism. Continue levothyroxine 25 mg daily. 12. Diabetic neuropathy. Continue gabapentin 300 mg 3 times a day 13 BPH. Continue Flomax 0.4 mg daily, Proscar 5 mg daily, North catheter 14. Gastroesophageal reflux disease. Pepcid. 15. DVT prophylaxis. On anticoagulation 16. Obstructive sleep apnea. We'll continue oxygen supplementation and patient to get CPAP from home DISCHARGE PLAN Home once stabilized Impression and plan of care have been directed as dictated by the signing physician. Ivy Simpson nurse practitioner acting as scribe for signing physician. Objective - Vital Signs Vital signs: Vital Signs Temp 98.6 F 01/21/20 07:45 Pulse 71 01/21/20 07:45 Resp 20 01/21/20 07:45 BP 138/62 01/21/20 07:45 Pulse Ox 93 L 01/21/20 09:00 Intake & Output 01/20/20 01/21/20 01/21/20 18:59 06:59 18:59 Intake Total 1020 Output Total 200 300 Balance 820 -300 Weight 134.5 kg Intake: IV 350 Sodium Chloride 0.9% 1, 350 000 ml @ 75 mls/hr IV . [id number] [facility] Rx#:[id number] Oral 670 Output: Urine 200 300 Other: Voiding Method Indwelling Catheter Indwelling Catheter Indwelling Catheter # Bowel Movements 0 - Labs CBC & Chem 7: 01/21/20 08:44 01/21/20 08:44 Labs: Abnormal Lab Results - Last 24 Hours (Table) 01/20/20 01/20/20 01/20/20 Range/Units 07:25 11:08 11:41 Sodium (137-145) mmol/L Potassium (3.5-5.1) mmol/L BUN (9-20) mg/dL Creatinine (0.66-1.25) mg/dL Glucose (74-99) mg/dL POC Glucose (mg/dL) 164 H (75-99) mg/dL Calcium (8.4-10.2) mg/dL Troponin I 1.770 H* 1.990 H* (0.000-0.034) ng/mL 01/20/20 01/20/20 01/20/20 Range/Units 14:19 16:56 19:18 Sodium 135 L (137-145) mmol/L Potassium 6.1 H* (3.5-5.1) mmol/L BUN 52 H (9-20) mg/dL Creatinine 2.78 H (0.66-1.25) mg/dL Glucose 141 H (74-99) mg/dL POC Glucose (mg/dL) 149 H (75-99) mg/dL Calcium 8.2 L (8.4-10.2) mg/dL Troponin I 2.300 H* (0.000-0.034) ng/mL 01/20/20 01/21/20 Range/Units 21:01 06:21 Sodium (137-145) mmol/L Potassium (3.5-5.1) mmol/L BUN (9-20) mg/dL Creatinine (0.66-1.25) mg/dL Glucose (74-99) mg/dL POC Glucose (mg/dL) 178 H 138 H (75-99) mg/dL Calcium (8.4-10.2) mg/dL Troponin I (0.000-0.034) ng/mL
[2020-01-21] MEDS ORDERED: INSULIN REGULAR 100 UNIT/ML VIAL IV ONE ×2 (10:21→20:56)
[2020-01-21] MEDS ORDERED: DEXTROSE 50% SYRINGE 50 ML IVP STA (10:21)
[2020-01-21] MEDS: INSULN ASP PRT/INSULIN ASPART 100 UNIT/ML 10 ML VIAL SQ SCH (11:35)
[2020-01-21 11:48] LABS: Glucose,Whole Blood 169 mg/dL (75-99)
--- NOTE | 2020-01-21 11:58 | P.PN ---
Subjective Progress Note Date: 01/21/20 This is a pleasant 74-year-old gentleman with documented history of coronary artery disease and prior RCA stenting in 2019, PAD with prior peripheral revascularization, paroxysmal atrial fibrillation, hypertension, hyperlipidemia, who is status post laminectomy and decompression surgery. Postoperatively the patient became slightly hypotensive, denied any chest pain or difficulty in breathing. Patient's troponins were checked which came back to be abnormal suggesting a non-Q-wave myocardial infarction. He was seen yesterday in consultation by Dr. Phillips. This morning patient was having some difficulty in breathing, oxygen saturations were declining, was placed on a nonrebreather. Blood pressure 136/60, heart rate in the 70s, 94% on BiPAP of 50%. White blood cell count 9.8, hemoglobin 10.9, platelet count 192. Sodium 137, potassium 5.8, BUN 57, creatinine 3.04, BNP level 7010. Objective - Vital Signs Vital signs: Vital Signs Temp 98.6 F 01/21/20 07:45 Pulse 71 01/21/20 07:45 Resp 16 01/21/20 11:07 BP 136/62 01/21/20 11:07 Pulse Ox 94 L 01/21/20 11:07 Intake & Output 01/20/20 01/21/20 01/21/20 18:59 06:59 18:59 Intake Total 1020 120 Output Total 200 300 Balance 820 -300 120 Weight 134.5 kg Intake: IV 350 Sodium Chloride 0.9% 1, 350 000 ml @ 75 mls/hr IV . [id number] [facility] Rx#:[id number] Oral 670 120 Output: Urine 200 300 Other: Voiding Method Indwelling Catheter Indwelling Catheter Indwelling Catheter # Bowel Movements 0 - Exam PHYSICAL EXAMINATION: GENERAL: 74-year-old gentleman, lethargic, short of breath HEENT: Head is atraumatic, normocephalic. Pupils equal, round. Sclera anicteric. Conjunctiva are clear. Mucous membranes of the mouth are moist. Neck is supple. There is no elevated jugular venous pressure. No carotid bruit is heard. HEART EXAMINATION: Heart S1-S2 a systolic murmur is heard CHEST EXAMINATION: Lungs reveal decreased air exchange throughout. Diminished air entry. ABDOMEN: Soft, nontender. Bowel sounds are heard. No organomegaly noted. EXTREMITIES: 2+ peripheral pulses with no evidence of peripheral edema and no calf tenderness noted. NEUROLOGIC [patient is drowsy, arouses to voice. - Labs CBC & Chem 7: 01/21/20 08:44 01/21/20 08:44 Labs: Abnormal Lab Results - Last 24 Hours (Table) 01/20/20 01/20/20 01/20/20 Range/Units 11:08 14:19 16:56 RBC (4.30-5.90) m/uL Hgb (13.0-17.5) gm/dL Hct (39.0-53.0) % MCV (80.0-100.0) fL Neutrophils # (1.3-7.7) k/uL Lymphocytes # (1.0-4.8) k/uL ABG pH (7.35-7.45) ABG pCO2 (35-45) mmHg ABG pO2 (83-108) mmHg ABG Total CO2 (19-24) mmol/L Sodium (137-145) mmol/L Potassium (3.5-5.1) mmol/L Carbon Dioxide (22-30) mmol/L BUN (9-20) mg/dL Creatinine (0.66-1.25) mg/dL Glucose (74-99) mg/dL POC Glucose (mg/dL) 149 H (75-99) mg/dL Calcium (8.4-10.2) mg/dL Troponin I 1.990 H* 2.300 H* (0.000-0.034) ng/mL 01/20/20 01/20/20 01/21/20 Range/Units 19:18 21:01 06:21 RBC (4.30-5.90) m/uL Hgb (13.0-17.5) gm/dL Hct (39.0-53.0) % MCV (80.0-100.0) fL Neutrophils # (1.3-7.7) k/uL Lymphocytes # (1.0-4.8) k/uL ABG pH (7.35-7.45) ABG pCO2 (35-45) mmHg ABG pO2 (83-108) mmHg ABG Total CO2 (19-24) mmol/L Sodium 135 L (137-145) mmol/L Potassium 6.1 H* (3.5-5.1) mmol/L Carbon Dioxide (22-30) mmol/L BUN 52 H (9-20) mg/dL Creatinine 2.78 H (0.66-1.25) mg/dL Glucose 141 H (74-99) mg/dL POC Glucose (mg/dL) 178 H 138 H (75-99) mg/dL Calcium 8.2 L (8.4-10.2) mg/dL Troponin I (0.000-0.034) ng/mL 01/21/20 01/21/20 01/21/20 Range/Units 08:44 08:44 09:53 RBC 3.42 L (4.30-5.90) m/uL Hgb 10.9 L (13.0-17.5) gm/dL Hct 34.5 L (39.0-53.0) % MCV 100.8 H (80.0-100.0) fL Neutrophils # 8.8 H (1.3-7.7) k/uL Lymphocytes # 0.4 L (1.0-4.8) k/uL ABG pH 7.31 L (7.35-7.45) ABG pCO2 47 H (35-45) mmHg ABG pO2 69 L (83-108) mmHg ABG Total CO2 25 H (19-24) mmol/L Sodium (137-145) mmol/L Potassium 5.8 H (3.5-5.1) mmol/L Carbon Dioxide 20 L (22-30) mmol/L BUN 57 H (9-20) mg/dL Creatinine 3.04 H (0.66-1.25) mg/dL Glucose 135 H (74-99) mg/dL POC Glucose (mg/dL) (75-99) mg/dL Calcium 8.1 L (8.4-10.2) mg/dL Troponin I (0.000-0.034) ng/mL 01/21/20 Range/Units 11:42 RBC (4.30-5.90) m/uL Hgb (13.0-17.5) gm/dL Hct (39.0-53.0) % MCV (80.0-100.0) fL Neutrophils # (1.3-7.7) k/uL Lymphocytes # (1.0-4.8) k/uL ABG pH (7.35-7.45) ABG pCO2 (35-45) mmHg ABG pO2 (83-108) mmHg ABG Total CO2 (19-24) mmol/L Sodium (137-145) mmol/L Potassium (3.5-5.1) mmol/L Carbon Dioxide (22-30) mmol/L BUN (9-20) mg/dL Creatinine (0.66-1.25) mg/dL Glucose (74-99) mg/dL POC Glucose (mg/dL) 169 H (75-99) mg/dL Calcium (8.4-10.2) mg/dL Troponin I (0.000-0.034) ng/mL Assessment and Plan Plan: Assessment and plan #1 status post laminectomy decompression surgery #2 hypotension #3 postoperative acute coronary syndrome #4 Acute kidney injury #5 acute hypoxic respiratory failure requiring BiPAP #6 from oral popliteal occlusive disease status post left fem-pop arthrectomy and balloon angioplasty #7 paroxysmal atrial fibrillation #8 hypertension #9 diabetes #10 hyperlipidemia #11 hypothyroidism #12 obstructive sleep apnea Plan Orders have been given for the patient to transfer to the intensive care unit. Given a one-time dose of IV Lasix this morning. ICU management per pulmonary care. DNP note has been reviewed, I agree with a documented findings and plan of care. Patient was seen and examined.
--- NOTE | 2020-01-21 12:46 | CONS ---
CONSULTATION REASON FOR CONSULT: Renal failure. HISTORY OF PRESENT ILLNESS: Patient is a 74-year-old male who was admitted to the hospital for elective surgery. Patient had laminectomy done on 01/19/2020 along with decompression of L2-L3 and L3 and 4. Patient postoperatively developed significant hypotension and was transferred to [facility] from the ortho floor. He was bolused with multiple boluses of normal saline. Systolic blood pressure had dropped into the 60s and 80s on 01/19/2020. Currently patient is maintained on IV fluids. He has a North catheter. Urine output had dropped yesterday it seems to have picked up today. This morning patient was noted to be in respiratory distress and has received Lasix yesterday and this morning. Serum creatinine was 3.0 mg/dL today. Prior creatinine on 01/19/2020 was 1.93 and on 01/07/2020 it was at 1.7 and in 2018 it was 1.1 mg/dL. The patient is not receiving any nonsteroidal anti-inflammatory agents. His blood pressure has improved as mentioned and urine output has picked up as well. PAST MEDICAL HISTORY: Significant for hypertension, atrial fibrillation, coronary artery disease, type 2 diabetes, osteoarthritis, hyperlipidemia, obstructive sleep apnea, hypothyroidism, history of C difficile colitis. PAST SURGICAL HISTORY: Bariatric surgery, cardiac catheterization, coronary stent placement, bilateral knee arthroplasty, left shoulder ligament repair, lap band procedure, surgery on the left on fingers for trauma on the left index finger, cataract surgery, stent placement left lower extremity. SOCIAL HISTORY: Patient is a former smoker. No history of drug abuse or alcohol abuse. MEDICATIONS: Medications prior to admission included: Lisinopril, hydrochlorothiazide, Synthroid, insulin, Glucophage, Tylenol, Neurontin, Flomax, Cordarone, Eliquis, Lipitor, Norvasc, Proscar. ALLERGIES: INCLUDE NAPROSYN CAUSES RASH AND HIVES. EXAMINATION: Patient is currently comfortable, awake. He is in mild distress currently being maintained on a BiPAP. His mentation is slightly better than yesterday. Urine output has picked up slightly to about 300 mL overnight. Examination of the heart S1, S2. Examination of the lungs, bilateral breath sounds are heard. Basal crackles are heard. Abdomen is soft. Morbidly obese. Examination of lower extremities shows edema 1+ bilaterally. LEARNING DEVELOPMENT SPECIALIST exam shows patient is moving all 4 extremities. LAB: Show sodium of 137, potassium 5.8, chloride 107, CO2 is 20, BUN 57. Serum creatinine 3.04. Hemoglobin 10.9 g/dL. ASSESSMENT: 1. Acute kidney injury secondary to hypotension initially oliguric, currently nonoliguric with improving urine output. The patient is also volume overloaded. Therefore, we will repeat another dose of Lasix later on today. 2. Hyperkalemia associated with acute kidney injury, use of MUSA inhibitors, currently off lisinopril and status post Lasix. I will treat with insulin and D50 and we can repeat a dose of Lasix later on today. 3. Chronic kidney disease with previous creatinine at 1.7 on 01/07/2020, however, that may have been another episode of acute kidney injury, as we have a previous creatinine of 1.1 on 12/26/2018. Etiology of CKD is likely nephrosclerosis. A previous UA showed no protein on 01/07/2020. 4. Status post laminectomy and decompression of the lumbar spine on 01/19/2020. 5. History of atrial fibrillation with controlled ventricular response, maintained on Eliquis and Cordarone. 6. Elevated troponin, likely non-ST elevation myocardial infarction as troponin continues to rise. Patient is being followed by Cardiology. PLAN: Check chest x-ray. Treat hyperkalemia with insulin and D50. Agree with holding off on MUSA inhibitors. Repeat Lasix later on today and DC IV fluids. Check urinalysis as well. Thank you for this consultation. Will continue to follow the patient with you during his hospitalization. MMODL / IJN: [id number] /
[2020-01-21 15:20] LABS: Glucose,Whole Blood 204 mg/dL (75-99)
[2020-01-21 15:38] LABS: Appearance,Urine Cloudy (Clear); Bacteria,Urine Rare /hpf; Bilirubin,Urine Negative (Negative); Blood,Urine Large (Negative); Color,Urine Yellow; Glucose,Urine (UA) Negative (Negative); Granular Casts,Urine 10 /lpf (0); Hyaline Casts,Urine 48 /lpf (0-2); Ketones,Urine Negative (Negative); Leukocyte Esterase,Urine Small (Negative); Mucus,Urine Rare /hpf; Nitrite,Urine Negative (Negative); Protein,Urine 1+ (Negative); RBC,Urine >182 /hpf (0-5); Specific Gravity,Urine 1.014 (1.001-1.035); Squamous Epithelial Cell,Urine 2 /hpf (0-4); Urobilinogen,Urine <2.0 mg/dL (<2.0); WBC,Urine 14 /hpf (0-5)
[2020-01-21] MEDS ORDERED: INSULN ASP PRT/INSULIN ASPART 100 UNIT/ML 10 ML VIAL SQ SCH (17:30)
--- NOTE | 2020-01-21 18:07 | CONS ---
CONSULTATION PULMONARY/CRITICAL CARE CONSULTATION: DATE OF SERVICE: January 21, 2020 HISTORY OF PRESENT ILLNESS: This is a 74-year-old gentleman who underwent a laminectomy and decompression, L2, L3, L3, L4. Surgery was done by Dr. Mckeon. The patient apparently was transported back to the general medical floor at which time he apparently developed hypotension and the patient was upgraded to 3 South floor. Currently, the patient is in the ICU. He was having some issues including some mental status changes, hypotension, low blood oxygen, and respiratory distress. Currently, the patient is on BiPAP at 12/5 and 50%. He is improving and coming around. He is much more awake. The patient has a history of diabetes mellitus, hypertension, hyperlipidemia, peripheral vascular disease, CAD, and atrial fibrillation. He also suffers from obesity and sleep apnea syndrome. PAST MEDICAL HISTORY: Atrial fibrillation, CAD, diabetes mellitus, hyperlipidemia, hypertension, DJD, sleep apnea syndrome. Apparently, on home CPAP, hypothyroidism, varicose veins, poor circulation in lower extremities, and C difficile colitis in 2014. 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 SOCIAL HISTORY: Positive for previous tobacco use. Does not smoke currently. Alcohol use rarely. No illicit drug use. FAMILY HISTORY: Positive for a mother with dementia and a father with a history of CAD and hypertension, myocardial infarction. He does have a sister, 1 with lung cancer. Daughter with ovarian cancer. HOME MEDICATIONS: Reviewed. He is typically on insulin, levothyroxine, lisinopril/hydrochlorothiazide, metformin, Tylenol, gabapentin, Flomax, amiodarone, Eliquis, Lipitor, Norvasc, Proscar. ALLERGIES: NAPROXEN. REVIEW OF SYSTEMS: CONSTITUTIONAL: Mental status changes, lethargy, somnolence. NEUROLOGIC: Lethargy. HEENT negative. CARDIOVASCULAR: Hypotension. PULMONARY: Shortness of breath, respiratory distress, low saturations. GI negative. negative. RHEUMATOLOGIC negative. IMMUNOLOGIC negative. ENDOCRINOLOGIC negative. DERMATOLOGIC negative. PHYSICAL EXAMINATION: VITAL SIGNS: Current vital signs are reviewed. Temperature 99.3. Heart rate 75, respiratory rate 18, blood pressure 143/67 mean 96 and saturations on BiPAP at 50% or 94. GENERAL: Appears in no acute distress. He does doze off from time to time. He does arouse. HEENT: Examination is grossly unremarkable. NECK: Supple. Full range of motion. No adenopathy. Neck veins are flat. CARDIOVASCULAR: Examination reveals regular rhythm and rate. Heart sounds are distant. Heart rate 75 beats per minute. S1, S2 normal. LUNGS: Reveal mostly clear breath sounds. A few scattered rhonchi. No wheezes or crackles. ABDOMEN: Soft. EXTREMITIES are intact. No edema. SKIN: Without rash. NEUROLOGIC: Examination is difficult to assess but when he does arouse, he is appropriate. LAB DATA: Reviewed. White count 9.8, hemoglobin 10.9, hematocrit 34.5, platelet count normal. Gases show pO2 of 59, pCO2 of 47, and pH 7.31. That is on BiPAP at 12/5 and 50%. Sodium 137, potassium 5.8, chloride 107, CO2 20, anion gap is 10. BUN and creatinine were 57 and 3.04. N-terminal proBNP 7010. Microbiology is negative. Chest x-ray from today shows a pattern of possible diffuse interstitial edema and CHF. Also atypical infection might be in the differential. The medications are reviewed. He is currently on Tylenol, Cordarone, Eliquis, Lipitor, Cepacol, Pepcid, Proscar, Lasix p.r.n., gabapentin, [place], Dilaudid, insulin, levothyroxine, magnesium hydroxide, Zofran, Senokot, and Flomax. ASSESSMENT: 1. Mental status changes, with mild alveolar hypoventilation, may relate to narcotic drugs. 2. Hypotension, of unclear etiology. 3. Mild fluid overload/congestive heart failure. 4. Postoperative day #2, status post laminectomy with decompression at L2/L3 as well as L3/L4. 5. History of atrial fibrillation. 6. History of coronary artery disease. 7. Diabetes mellitus. 8. Hyperlipidemia. 9. Hypertension. 10.Degenerative joint disease. 11.History of sleep apnea syndrome. 12.Hypothyroidism. 13.Multiple other medical problems and comorbidities. PLAN: Please see my orders. We will stop all narcotics and sedative. Additional recommendations and suggestions are forthcoming. The patient may have alveolar hypoventilation secondary to narcotics. Medications are reviewed. Labs reviewed. We will continue with Lasix therapy. MMODL / IJN: [id number] /
[2020-01-21 18:25] LABS: Basophils % (A) 0 %; Eosinophils % (A) 0 %; HGB 11.1 gm/dL (13.0-17.5); Lymphocytes # (A) 0.5 k/uL (1.0-4.8); Lymphocytes % (A) 5 %; MCH 33.1 pg (25.0-35.0); MCHC 32.6 g/dL (31.0-37.0); MCV 101.4 fL (80.0-100.0); Mean Platelet Volume 7.8; Monocytes # (A) 0.4 k/uL (0-1.0); Monocytes % (A) 4 %; Neutrophils # (A) 10.3 k/uL (1.3-7.7); Neutrophils % (A) 90 %; Platelet Count 208 k/uL (150-450); RBC 3.36 m/uL (4.30-5.90); WBC 11.4 k/uL (3.8-10.6)
[2020-01-21 18:29] LABS: Glucose,Whole Blood 203 mg/dL (75-99)
[2020-01-21] MEDS: FAMOTIDINE 20 MG TAB PO SCH (18:38)
[2020-01-21] MEDS: AMIODARONE 200 MG TAB PO SCH ×2 (18:38→21:54)
[2020-01-21] MEDS: APIXABAN 5 MG TAB PO SCH (18:38)
[2020-01-21 18:39] LABS: Calcium 8.2 mg/dL (8.4-10.2); Potassium 5.6 mmol/L (3.5-5.1)
[2020-01-21] MEDS: FINASTERIDE 5 MG TAB PO SCH (18:39)
[2020-01-21] MEDS: TAMSULOSIN 0.4 MG CAP.ER.24H PO SCH (18:40)
[2020-01-21] MEDS: GABAPENTIN 300 MG CAP PO SCH ×3 (18:40→22:10)
[2020-01-21] MEDS: SENNOSIDES-DOCUSATE SODIUM 1 EACH TAB PO SCH (18:40)
[2020-01-21 20:35] LABS: Glucose,Whole Blood 208 mg/dL (75-99)
[2020-01-21] MEDS ORDERED: SODIUM CHLORIDE 0.9% 1,000 ML IV SCH (20:45)
[2020-01-21] MEDS ORDERED: PIPERACILLIN-TAZOBACTAM 3.375 GM in SODIUM CHLORIDE 0.9% 100 ML IVPB SCH (21:00)
[2020-01-21 21:57] VITALS: TEMP 100.8
[2020-01-21 23:31] LABS: Glucose,Whole Blood 156 mg/dL (75-99)
[2020-01-22] MEDS ORDERED: propofoL 100 ML IV ONE (00:01)
[2020-01-22] MEDS ORDERED: EPINEPHrine 10 ML SYRINGE (0.1 MG/ML) ONE (00:18)
[2020-01-22] MEDS ORDERED: SODIUM BICARB 8.4% 50 ML SYR (1 MEQ/ML) ONE (00:18)
[2020-01-22] MEDS ORDERED: ATROPINE SULFATE 0.1 MG/ML 10ML SYRINGE ONE (00:18)
[2020-01-22] MEDS ORDERED: CALCIUM CHLORIDE 100 MG/ML 10 ML SYRINGE ONE (00:18)
[2020-01-22] MEDS ORDERED: NOREPINEPHRIN 4 MG-0.9% NS PMX 4 MG/250 ML ML IV ONE (00:49)
[2020-01-22] MEDS ORDERED: NOREPINEPHRINE 4 MG in SODIUM CHLORIDE 0.9% 250 ML IV SCH (01:00)
--- NOTE | 2020-01-22 02:32 | P.EN ---
patient admitted for laminectomy , complicated by NSTEMI post op CODE blue for PEA cardiopulmonary arrest, patient was coded following ACLS protocol for a total of 40 minutes with brief ROSC achieved three times. patient was intubated, right radial artery arterial line inserted, he was given multiple doses of epi, bicarb. patient was given Ca Chl for mild hyperkalemia. eventually we achieved ROSC after the third code. patient will be started on levophed for hypotension , he was running 2 L boluses of NS prior to the code for hypotension Dr Mccall notified. family updated primary team not available through [facility], paged await call back check new set of labs, to follow up on K please refer to paper charting of the code blue for exact events and meds given more than 40 minutes spent in critical care time in the care of this patient
[2020-01-22 04:35] VITALS: BP 101/21; PULSE 51; RESP 13
[2020-01-22] MEDS ORDERED: FUROSEMIDE 10 MG/ML 4 ML VIAL IV SCH (09:00)
[2020-01-22] MEDS ORDERED: CHLORHEXIDINE GLUCONATE 15 ML CUP MUCOUS MEM SCH (09:00)
--- NOTE | 2020-01-23 10:42 | CDI ---
Documentation Clarification Form Date: 01/23/2020 10:38:55 AM From: Yaneli Aguillon Admit Date: 01/19/2020 12:10:00 PM Patient Name: Jeff Uriostegui Visit Number: [id number] Discharge Date: 01/22/2020 03:37:00 AM ATTENTION: The Clinical Documentation Specialists (CDI) and [facility] Coding Staff appreciate your assistance in clarifying documentation. Please respond to the clarification below the line at the bottom and electronically sign. The CDI & [facility] Coding staff will review the response and follow-up if needed. Please note: Queries are made part of the Legal Health Record. If you have any questions, please contact the author of this message via ITS. Dr. Manjinder Sepulveda Post operative Hypotension is documented and requires clarification. History/Risk Factors: Paroxysmal Atrial Fib, CAD, DM2, HTN, HLD, LEIGHANN, varicose Veins, Heart cath with Stents Clinical Indicators: 01/18 Medical Consult: "Hypotension secondary to likely volume depletion and dehydration, received a total of 1.5 L bolus along with normal saline at 75 mL per hour.We'll continue to monitor urine output closely, repeat labs in the morning. MARK. S/P laminectomy decompression L2-L3 and L3-L4 by Dr. Mckeon. Surgical dressing in place, clean dry and intact. Patient had laminectomy and decompression L2-L3 and L3-L4 today with Dr. Mckeon, postoperatively developed hypotension and lethargy patient was admitted to fifth floor awaiting transfer to [facility] at this time. Nurse reported an a team was called on the patient for hypotension, blood pressure in the 60s systolic, did receive 1 L of fluid with improvement of blood pressures to 90 systolic. ASSESSMENT AND PLAN : Hypotension secondary to likely volume depletion and dehydration, received a total of 1.5 L bolus." 01/18 Orthopedic Surgery: " spoke with the nurse regarding the patient. He has had some hypotension to he 80s over 40s and some lethargy.Medicine has been notified. It started him on a bolus. I also ordered EKG and would like to have him transferred to [facility] care for closer monitoring." 01/20 Attending Progress note: "Postop acute coronary syndrome, acute non-ST elevated myocardial infarction." 01/21 Pulmonary Consult: "He was having some issues including some mental status changes, hypotension, low blood oxygen, and respiratory distress. Hypotension, of unclear etiology.' 01/21 Event Note: "patient will be started on Levophed for hypotension , he was running 2 L boluses of NS prior to the code for hypotension Dr Mccall notified." 01/19/20 1320 is 1st documented episode of hypotension Patients B/P: 87/38, HR 58, RR 18, Spo2 97% 3L NC 01/18-01/20 Labs: BUN 38/47/52/57/60, Creatinine 1.93/2.44/2.78/3.04/3.26, Troponin 1.77/1.99/2.3 Treatment: 01/19/20 Or report: "Estimated blood loss:Approximately 400 mL, with 120 mL given back through [facility]" 01/18 1.5L 0.9% NS IVF bolus per provider documentation In your professional opinion, can you please specify the etiology of the hypotension if known? xx Cardiogenic Shock (specify cause if known) Hypovolemic Shock (specify cause if known) Drug Induced Hypotension (please specify drug) Postoperative Hypotension (please specify surgical cause if know and if this was expected or unexpected in relation to surgery) Hypotension due to hemodialysis Other Condition, please specify Unable to determine (Last Revision: December 2016) MTDD
--- NOTE | 2020-01-23 10:57 | CDI ---
Documentation Clarification Form Date: 01/23/2020 10:43:53 AM From: Yaneli Aguillon RN, CCDS Admit Date: 01/19/2020 12:10:00 PM Patient Name: Jeff Uriostegui Visit Number: [id number] Discharge Date: 01/22/2020 03:37:00 AM ATTENTION: The Clinical Documentation Specialists (CDI) and [facility] Coding Staff appreciate your assistance in clarifying documentation. Please respond to the clarification below the line at the bottom and electronically sign. The CDI & [facility] Coding staff will review the response and follow-up if needed. Please note: Queries are made part of the Legal Health Record. If you have any questions, please contact the author of this message via ITS. Dr. Bal Mccall CHF is documented in the Pulmonary Progress Note and requires further specificity. History/Risk Factors: Paroxysmal Atrial Fib, CAD, Stents, HTN, HLD, LEIGHANN Clinical Indicators: 01/20 Pulmonary Consult: "Mild fluid overload/congestive heart failure." 01/19 Medical Progress note: "Postop acute coronary syndrome, acute non-ST elevated myocardial infarction.' 01/20 CXR: "Diffuse interstitial pattern with bilateral lower lobe infiltrate and small effusion. Differential diagnosis would include an atypical pneumonia versus CHF." 01/20 CXR: "Diffuse interstitial pattern with bilateral lower lobe infiltrate and small effusion. Differential diagnosis would include an atypical pneumonia versus CHF." 01/18VS/Pulse OX: Temp 97.4, HR 63, RR 16, B/P 94/57, Spo2 95% 6L NC 01/20 BNP: 7010 01/19 Echocardiogram Results: mild concentric LVH. EF 55-60% Treatment: 01/19 0908 Lasix 40 mg IVP x 1 01/20 0702 Lasix 40 mg IVP x 1 01/21 Lasix 40 IVP QD 01/18 1215 0.9% NS IVF Bolus x 1 L In your professional opinion, can you please clarify the acuity and type of CHF if known? Diastolic Heart Failure: Acute Chronic Acute on Chronic Systolic & Diastolic Heart Failure: Acute Chronic Acute on Chronic Heart Failure Unable to Determine Other, please specify (Last Revision: June 2017) MTDD
--- NOTE | 2020-01-23 11:10 | CDI ---
Documentation Clarification Form Date: 01/23/2020 10:59:44 AM From: Yaneli Aguillon RN, CCDS Admit Date: 01/19/2020 12:10:00 PM Patient Name: Jeff Uriostegui Visit Number: [id number] Discharge Date: 01/22/2020 03:37:00 AM ATTENTION: The Clinical Documentation Specialists (CDI) and [facility] Coding Staff appreciate your assistance in clarifying documentation. Please respond to the clarification below the line at the bottom and electronically sign. The CDI & [facility] Coding staff will review the response and follow-up if needed. Please note: Queries are made part of the Legal Health Record. If you have any questions, please contact the author of this message via ITS. Dr. Donna Vidal CKD is documented and requires further specificity. History/Risk Factors: 01/07/2020 Pre-op Labs: Patients Historical BUN:CR:GFR 37/1.7/39 DM2, HTN, HLD, CAD, Hypothyroidism, Stents, bariatric surgery Clinical Indicators: 01/20 Nephrology Consult: "Chronic kidney disease with previous creatinine at 1.7 on 01/07/2020, however, that may have been another episode of acute kidney injury, as we have a previous creatinine of 1.1 on 12/26/2018. Etiology of CKD is likely nephrosclerosis. Patient postoperatively developed significant hypotension and was transferred [facility] from the [facility]o floor. ASSESSMENT: Acute kidney injury secondary to hypotension initially oliguric, currently nonoliguric with improving urine output." 01/19 Cardiology: "Beside that the creatinine came in to be abnormal and he is in acute on chronic renal failure. Assessment : #3 acute on chronic renal failure." 01/18 - 01/20 Current BUN:38/47/52/57/60 CR: 1.93/2.44/2.78/3.04/3.26 GFR: 33/25/22/19/18 Treatment: Consults: Nephrology- see above consult note 01/18 1.5L IVF 0.9% NS Bolus per progress notes Lasix 40 mg IVP QD In order to capture the severity of condition, please clarify the stage of the CKD, if known: CKD Stage 1 (GFR > 90) CKD Stage 2 (GFR 60-89) CKD Stage 3 (GFR 30-59) CKD Stage 4 (GFR 15-29) Other, please specify Unable to determine (Last Revision: April 2019) STAGE 3a [facility]
--- NOTE | 2020-01-23 11:24 | CDI ---
Documentation Clarification Form Date: 01/23/2020 11:11:36 AM From: Yaneli Aguillon RN, CCDS Admit Date: 01/19/2020 12:10:00 PM Patient Name: Jeff Uriostegui Visit Number: [id number] Discharge Date: 01/22/2020 03:37:00 AM ATTENTION: The Clinical Documentation Specialists (CDI) and [facility] Coding Staff appreciate your assistance in clarifying documentation. Please respond to the clarification below the line at the bottom and electronically sign. The CDI & [facility] Coding staff will review the response and follow-up if needed. Please note: Queries are made part of the Legal Health Record. If you have any questions, please contact the author of this message via ITS. Dr. Manjinder Sepulveda "Postop acute coronary syndrome, acute non-ST elevated myocardial infarction," is documented in the medical progress notes and requires further specificity. 01/18 Patients Admitting Diagnosis & Post-Operative Diagnosis:Severe spinal stenosis L2-3 L3 4, spondylolisthesis L3 4, secondary to degenerative disc disease L2-L3 L3 4, lower extremity radiculopathy, neurogenic claudication, obesity 01/18 Procedure performed: Laminectomy and decompression L2-3 L3 4, Computer CT navigation aided Minimally invasive Posterior lateral decompression and facet fusion L2-3 L3 4, Minimally invasive Transforaminal lumbar interbody fusion for a 360 fusion L2-3 L3 4, Discectomy for decompression L2-3 L3 4, Placement of interbody graft L2-3 L3 4, Use of computer navigation for fusion, Local autogenous bone grafting, Aspiration of bone marrow from the vertebral body pedicle L2 on the right, Use of bone graft extenders, Increased difficulty and time for the surgery due to patient's large body habitus History/Risk Factors: Paroxysmal Atrial Fib, HTN, HLD, Stents, PVD, LEIGHANN Clinical Indicators: 01/19-01/10 Medical Progress Notes: "Postop acute coronary syndrome, acute non-ST elevated myocardial infarction." 01/19 Cardiology Consult: "Because of that the troponin was checked and that came in to be abnormal and the patient was ruled in for acute non-ST patient myocardial infarction." 01/20 Nephrology Consult: " Elevated troponin, likely non-ST elevation myocardial infarction as troponin continues to rise." Treatment: Consults:Cardiology: "consider conservative medical approach." Patient later went into Cardiopulmonary Arrest w PEA and In order to accurately reflect this patients severity of illness, please clarify if the NSTEMI in relation to the surgical procedure: -is a complication of surgical procedure -is an expected outcome of the surgical procedure and xx -is related to co-morbid condition(s) of -is related to elective surgical procedure preformed -Other please specify -Unable to determine (Last Revision: April 2019) MTDD
--- NOTE | 2020-01-25 10:27 | CDI ---
Documentation Clarification Form Mortality review 2nd request Date: 01/23/2020 10:43:53 AM From: Yaneli Aguillon RN, CCDS Admit Date: 01/19/2020 12:10:00 PM Patient Name: Jeff Uriostegui Visit Number: [id number] Discharge Date: 01/22/2020 03:37:00 AM ATTENTION: The Clinical Documentation Specialists (CDI) and [facility] Coding Staff appreciate your assistance in clarifying documentation. Please respond to the clarification below the line at the bottom and electronically sign. The CDI & [facility] Coding staff will review the response and follow-up if needed. Please note: Queries are made part of the Legal Health Record. If you have any questions, please contact the author of this message via ITS. Dr. Bal Mccall CHF is documented in the Pulmonary Progress Note and requires further specificity as you are the only provider documenting this diagnosis. History/Risk Factors: Paroxysmal Atrial Fib, CAD, Stents, HTN, HLD, LEIGHANN Clinical Indicators: 01/20 Pulmonary Consult: "Mild fluid overload/congestive heart failure." 01/19 Medical Progress note: "Postop acute coronary syndrome, acute non-ST elevated myocardial infarction.' 01/20 CXR: "Diffuse interstitial pattern with bilateral lower lobe infiltrate and small effusion. Differential diagnosis would include an atypical pneumonia versus CHF." 01/20 CXR: "Diffuse interstitial pattern with bilateral lower lobe infiltrate and small effusion. Differential diagnosis would include an atypical pneumonia versus CHF." 01/18VS/Pulse OX: Temp 97.4, HR 63, RR 16, B/P 94/57, Spo2 95% 6L NC 01/20 BNP: 7010 01/19 Echocardiogram Results: mild concentric LVH. EF 55-60% Treatment: 01/19 0908 Lasix 40 mg IVP x 1 01/20 0702 Lasix 40 mg IVP x 1 01/21 Lasix 40 IVP QD 01/18 1215 0.9% NS IVF Bolus x 1 L In your professional opinion, can you please clarify the acuity and type of CHF if known? Diastolic Heart Failure: Acute Chronic Acute on Chronic Systolic & Diastolic Heart Failure: Acute Chronic Acute on Chronic Heart Failure Unable to Determine Other, please specify (Last Revision: June 2017) Unable to determine MTDD
--- NOTE | 2020-01-25 11:07 | P.DS ---
Providers Date of admission: 01/19/20 12:10 Expected date of discharge: 01/22/20 Attending physician: Zackary Mckeon Consults: 01/19/20 14:51 Consult Physician Routine Consulting Provider: Manjinder Sepulveda Consult Reason/Comments: medical management Do you want consulting provider notified?: Yes 01/20/20 10:48 Consult Physician Routine Consulting Provider: Cb Ross Consult Reason/Comments: elevated trop Do you want consulting provider notified?: Yes 01/20/20 20:41 Consult Physician Routine Consulting Provider: Donna Vidal Consult Reason/Comments: abnm labs- BMP Do you want consulting provider notified?: Yes, Notify in am 01/21/20 07:01 Consult Physician Urgent Consulting Provider: Bal Mccall Consult Reason/Comments: respiratory status change Do you want consulting provider notified?: Yes Primary care physician: Haile Harley [facility] Course: HISTORY OF PRESENT ILLNESS This is a 74-year-old male, patient of Dr. Haile Souza and Dr. Connelly past medical history significant for diabetes mellitus, hypertension, dyslipidemia, peripheral vascular disease, coronary artery disease with stenting, proximal atrial fibrillation, obstructive sleep apnea, and morbid obesity. Patient had laminectomy and decompression L2-L3 and L3-L4 today with Dr. Mckeon, postoperatively developed hypotension and lethargy patient was admitted to fifth floor awaiting [facility] at this time. Nurse reported an a team was called on the patient for hypotension, blood pressure in the 60s systolic, did receive 1 L of fluid with improvement of blood pressures to 90 systolic. Patient still remains drowsy, awakens easily and answers questions did fall back asleep while talking. We'll be cautious with pain medications at this time and hold BP agents until tomorrow will reassess. Hemoglobin was 10.8, BUNs 38 creatinine 1.9, potassium 5.6, CO2 21. Patient denies previous history of kidney disease last found creatinine from 12/2018 was 1.1. Likely related to dehydration, monitor urine output closely, will continue with hydrating and repeat labs in a.m. Patient was on 6 L nasal cannula, was able down to wean down to 3 L nasal cannula with pulse ox 97%. Patient was going to call his to bring BiPAP from home. residential monitor was being placed at this time. 11/12: Blood pressure is improved today. Patient does have congestion for which one dose of IV Lasix will be given and IV fluids will be discontinued within 2 hours. Renal function is increased to BUN of 47 and creatinine 2.44. Hemoglobin is stable at 10.3. Potassium 5.9. Blood sugars running between 164 and 279. Troponins ordered which came back at 1.770 and 1.990. Cardiology consult and echocardiogram added. Patient is complaining of some shortness of breath but no chest pain. Surgical pain is controlled. 01/20: Patient is seen today on the cardiac except on unit. He has had difficulty with oxygenation through the night and is currently on a BiPAP. Patient desats quickly if BiPAP is removed. Currently pulse ox 92% on 50% FiO2. Repeat blood work reveals hemoglobin 10.9. Potassium is 5.8 with BUN 57 creatinine 3.04. Labs are to be called to nephrology. Patient will be order to transfer to the intensive care unit, Dr. Mccall updated. COVID testing added. On 111, patient underwent cardiopulmonary arrest and was coded following ACLS protocol for 40 minutes with brief return of spontaneous circulation achieved 3 times. Patient was intubated was provided multiple doses of epi and bicarb, calcium chloride. He was started on norepinephrine and status post IV fluid boluses for hypotension. Time of was 105. Please see nursing documentation for detail ASSESSMENT AND PLAN 1. Acute non-ST elevated myocardial infarction secondary to underlying coronary artery disease. 2. Cardiogenic shock secondary to acute ND. 3. Acute cardiopulmonary arrest secondary to ND. 4. Acute kidney injury with chronic kidney disease stage IIIA. 5. Acute hypoxic respiratory failure secondary to acute diastolic heart failure requiring BiPAP. 6. Status post laminectomy decompression L2-L3 and L3-L4 by Dr. Mckeon. 7. Paroxysmal atrial fibrillation. 8. Femoral-popliteal occlusive disease, peripheral artery disease status post left fem-pop atherectomy and balloon angioplasty. 9. Hypertension. 10. Diabetes mellitus type 2, insulin requiring. 11. Hyperlipidemia. 12. Hypothyroidism. 13. Diabetic neuropathy. 14 BPH. 15. Gastroesophageal reflux disease. 16. Obstructive sleep apnea. Impression and plan of care have been directed as dictated by the signing physician. Ivy Simpson nurse practitioner acting as scribe for signing physician. Plan - Discharge Summary Discharge Rx Participant: Yes New Discharge Prescriptions: No Action metFORMIN HCL [Glucophage] 500 mg PO DAILY Lisinopril-Hctz 20-25 mg [Zestoretic 20-25] 1 tab PO DAILY Levothyroxine Sodium [Synthroid] 25 mcg PO DAILY Insulin NPH/Reg Insulin 70/30 [humuLIN 70/30 VIAL] 25 unit SQ BID Acetaminophen [Tylenol Extra Strength] 1,000 mg PO Q8HR PRN PRN Reason: Mild To Moderate Pain Gabapentin [Neurontin] 300 mg PO TID Tamsulosin HCl [Flomax] 0.4 mg PO DAILY Amiodarone [Cordarone] 200 mg PO BID #180 tab Apixaban [Eliquis] 5 mg PO BID #180 tab Atorvastatin [Lipitor] 40 mg PO HS #90 tablet amLODIPine [Norvasc] 10 mg PO DAILY #90 tablet Finasteride [Proscar] 5 mg PO DAILY Discharge Medication List Insulin NPH/Reg Insulin 70/30 [humuLIN 70/30 VIAL] 25 unit SQ BID 10/23/15 [History] Levothyroxine Sodium [Synthroid] 25 mcg PO DAILY 10/23/15 [History] Lisinopril-Hctz 20-25 mg [Zestoretic 20-25] 1 tab PO DAILY 10/23/15 [History] metFORMIN HCL [Glucophage] 500 mg PO DAILY 10/23/15 [History] Acetaminophen [Tylenol Extra Strength] 1,000 mg PO Q8HR PRN 12/01/18 [History] Gabapentin [Neurontin] 300 mg PO TID 12/21/18 [History] Tamsulosin HCl [Flomax] 0.4 mg PO DAILY 12/23/18 [History] Amiodarone [Cordarone] 200 mg PO BID #180 tab 12/26/18 [Rx] Apixaban [Eliquis] 5 mg PO BID #180 tab 12/26/18 [Rx] Atorvastatin [Lipitor] 40 mg PO HS #90 tablet 12/26/18 [Rx] amLODIPine [Norvasc] 10 mg PO DAILY #90 tablet 12/26/18 [Rx] Finasteride [Proscar] 5 mg PO DAILY 01/17/20 [History] Follow up Appointment(s)/Referral(s): Marquez Richter, INGR[facility] [PHYSICIAN MANAGER TRACK] - 2 Weeks (Patient may follow-up with Marquez Richter PA-C or Dr. Jace Mckeon at [facility] in 2-3 weeks following discharge. ) Activity/Diet/Wound Care/Special Instructions: 1. Patient may shower with Optifoam dressing intact. 2. Patient may remove Optifoam dressing in 3 days and shower without a dressing at that time. 3. Patient may use walker or other aid to aid in ambulation as needed 4. Patient should refrain from driving until at least after their first follow- up appointment in the office. 5. Patient should avoid excessive bending, twisting, and lifting; no lifting greater than 10 pounds 6. Take medications as prescribed 7. Patient should avoid anti-inflammatory medications over the next 6 weeks postoperatively 8. Do not soak in tub Discharge Disposition: - Preliminary Cause of Preliminary Cause of : Acute non-ST elevated myocardial infarction secondary to underlying coronar
== END 2020-01-22 03:37 | disposition expired | DRG 453 ==
LOC: OR 06:13 → 5NMEDONC 11:58 → OR 12:10 → 3SCARD 12:10 → 2SICU 01-21 14:05
PROVIDERS: ADMIT Orthopaedic Surgery Orthopaedic Surgery of the Spine; ATTEND Orthopaedic Surgery Orthopaedic Surgery of the Spine
PROC: 0SG1071 Fusion of 2 or more Lumbar Vertebral Joints with Autologous Tissue Substitute, Posterior Approach, Posterior Column, Open Approach (ICD-10-PCS; principal; 2020-01-19 07:30)
PROC: 0SG10AJ Fusion of 2 or more Lumbar Vertebral Joints with Interbody Fusion Device, Posterior Approach, Anterior Column, Open Approach (ICD-10-PCS; principal; 2020-01-19 07:30)
PROC: 00NY0ZZ Release Lumbar Spinal Cord, Open Approach (ICD-10-PCS; principal; 2020-01-19 07:30)
PROC: 30233H0 Transfusion of Autologous Whole Blood into Peripheral Vein, Percutaneous Approach (ICD-10-PCS; principal; 2020-01-19 07:30)
PROC: 01NB0ZZ Release Lumbar Nerve, Open Approach (ICD-10-PCS; principal; 2020-01-19 07:30)
PROC: 0ST20ZZ Resection of Lumbar Vertebral Disc, Open Approach (ICD-10-PCS; principal; 2020-01-19 07:30)
PROC: 5A09357 Assistance with Respiratory Ventilation, Less than 24 Consecutive Hours, Continuous Positive Airway Pressure (ICD-10-PCS; 2020-01-21)
PROC: 03HY32Z Insertion of Monitoring Device into Upper Artery, Percutaneous Approach (ICD-10-PCS; 2020-01-22)
PROC: 5A1935Z Respiratory Ventilation, Less than 24 Consecutive Hours (ICD-10-PCS; 2020-01-22)
PROC: 4A133B1 Monitoring of Arterial Pressure, Peripheral, Percutaneous Approach (ICD-10-PCS; 2020-01-22)
PROC: 4A133J1 Monitoring of Arterial Pulse, Peripheral, Percutaneous Approach (ICD-10-PCS; 2020-01-22)
PROC: 0BH17EZ Insertion of Endotracheal Airway into Trachea, Via Natural or Artificial Opening (ICD-10-PCS; 2020-01-22)
PROC: 3E033XZ Introduction of Vasopressor into Peripheral Vein, Percutaneous Approach (ICD-10-PCS; 2020-01-22)
DX: M48.062 Spinal stenosis, lumbar region with neurogenic claudication (principal); J96.01 Acute respiratory failure with hypoxia; I21.4 Non-ST elevation (NSTEMI) myocardial infarction; I50.31 Acute diastolic (congestive) heart failure; Z68.41 Body mass index [BMI] 40.0-44.9, adult; N17.9 Acute kidney failure, unspecified; I13.0 Hypertensive heart and chronic kidney disease with heart failure and stage 1 through stage 4 chronic kidney disease, or unspecified chronic kidney disease; I46.9 Cardiac arrest, cause unspecified; M51.16 Intervertebral disc disorders with radiculopathy, lumbar region; M43.16 Spondylolisthesis, lumbar region; E10.22 Type 1 diabetes mellitus with diabetic chronic kidney disease; E03.9 Hypothyroidism, unspecified; N18.31 Chronic kidney disease, stage 3a; R57.0 Cardiogenic shock; E66.01 Morbid (severe) obesity due to excess calories; E10.51 Type 1 diabetes mellitus with diabetic peripheral angiopathy without gangrene; E10.40 Type 1 diabetes mellitus with diabetic neuropathy, unspecified; G47.33 Obstructive sleep apnea (adult) (pediatric); Z20.828 Contact with and (suspected) exposure to other viral communicable diseases; E87.5 Hyperkalemia; I25.10 Atherosclerotic heart disease of native coronary artery without angina pectoris; M19.90 Unspecified osteoarthritis, unspecified site; E86.0 Dehydration; N40.0 Benign prostatic hyperplasia without lower urinary tract symptoms; I35.0 Nonrheumatic aortic (valve) stenosis; I48.0 Paroxysmal atrial fibrillation; K21.9 Gastro-esophageal reflux disease without esophagitis; E78.5 Hyperlipidemia, unspecified; E86.1 Hypovolemia; R53.81 Other malaise; Z96.653 Presence of artificial knee joint, bilateral; Z96.643 Presence of artificial hip joint, bilateral; E78.00 Pure hypercholesterolemia, unspecified; Z86.19 Personal history of other infectious and parasitic diseases; Z95.5 Presence of coronary angioplasty implant and graft; Z98.890 Other specified postprocedural states; Z98.84 Bariatric surgery status; Z87.891 Personal history of nicotine dependence; Z86.718 Personal history of other venous thrombosis and embolism; Z82.49 Family history of ischemic heart disease and other diseases of the circulatory system; Z82.0 Family history of epilepsy and other diseases of the nervous system; Z89.029 Acquired absence of unspecified finger(s); Z80.1 Family history of malignant neoplasm of trachea, bronchus and lung; Z80.41 Family history of malignant neoplasm of ovary; Z79.899 Other long term (current) drug therapy; Z79.890 Hormone replacement therapy; Z79.4 Long term (current) use of insulin; Z79.01 Long term (current) use of anticoagulants; Z88.8 Allergy status to other drugs, medicaments and biological substances; Z46.0 Encounter for fitting and adjustment of spectacles and contact lenses
CPT/HCPCS: 36415; 36600; 71045; 72100; 80048; 81001; 82805; 83605; 83880; 84484; 85025; 86850; 86900; 86901; 87040; 93005; 93306; 94002; 94660